=== PATIENT | female | born 1945 | race Caucasian/White ===

== ENCOUNTER 2017-02-22 16:24 | Inpatient (IN) | payer MEDICARE ==
--- NOTE | 2017-02-22 16:52 | ED Physician Chart ---
ED Chief Complaint/HPI - Patient Information Date Seen:: 02/22/17 Time Seen:: 16:35 Chief Complaint:: Schwab Catheter Dysfunction History of Present Illness:: onset x 3 days of urinary incontinence, schwab catheter dysfunction, and ulcer of left foot; no H/As, neck pain, C/P, SOB, cough, Abd. Pain, A/N/V/D/c, fever, chills, or pelvic pain; pt's last tetanus shot: < 5 years; UTD Historian:: Patient, Family Member Review:: Nurse's Note Reviewed ED Review of Systems - Review of Systems General/Constitutional: Fever, No chills, No weight loss, No weakness, No diaphoresis, No edema, No loss of appetite Skin: Skin lesions, Rash, No bruising Head: No headache, No light-headedness Eyes: No loss of vision, No pain, No diplopia ENT: No earache, No nasal drainage, No sore throat, No tinnitus Neck: No neck pain, No swelling, No thyromegaly, No stiffness, No mass noted Cardio Vascular: No chest pain, No palpitations, No PND, No orthopnea, No edema Pulmonary: No SOB, No cough, No sputum, No wheezing GI: No nausea, No vomiting, No diarrhea, No pain, No melena, No hematochezia, No constipation, No hematemesis G/U: No dysuria, No frequency, No hematuria Self Rising Flour Mixer: No vaginal discharge, No abnormal vaginal bleed, No contraction Musculoskeletal: No bone or joint pain, No back pain, No muscle pain Endocrine: Polyuria, Polydipsia Psychiatric: No prior psych history, No depression, No anxiety, No suicidal ideation Hematopoietic: No bruising, No lymphadenopathy Allergic/Immuno: No urticaria, No angioedema Neurological: No syncope, No focal symptoms, No weakness, No paresthesia, No headache, No seizure, No dizziness, No confusion, No vertigo ED Past Medical History - Past Medical History Obtainable: Yes Past Medical History: HTN, DM, CAD, CVA/TIA, Dyslipidemia Family History: Heart disease, Diabetes Melitus, HTN Social History: Non Smoker, No Alcohol, No Drug Use, Single Surgical History: other (Knee and Hip Surgery) Psychiatricy History: None Medication: Reviewed Family Medical History - Family Member Daughter Hx Family Cancer: No Hx Family Coronary Artery Disease: No Hx Family Congestive Heart Failure: No Hx Family Hypertension: No Hx Family Stroke: No Hx Family Diabetes: No Hx Family HIV: No Hx Family Hepatitis: No Hx Family Psychiatric Problems: No ED Physical Exam - Physical Examination General/Constitutional: Awake, Well-developed, well-nourished, Alert, No distress, GCS 15, Non-toxic appearing, Ambulatory Head: Atraumatic Eyes: Lids, conjuctiva normal, PERRL, EOMI Skin: No rash, No ecchymosis, Well hydrated, No lymphadenopathy Other Skin comments:: Left Heel Ulcer ENMT: External ears, nose nl, Nasal exam nl, Lips, teeth, gums nl Neck: Nontender, Full ROM w/o pain, No JVD, No nuchal rigidity, No bruit, No mass, No stridor Respiratory: Nl effort/Exclusion, Clear to Auscultation, No Wheeze/Rhonchi/Rales Cardio Vascular: RRR, No murmur, gallop, rubs, NL S1 S2 GI: No tenderness/rebounding/guarding, No organomegaly, No hernia, Normal BS's, Nondistended, No mass/bruits, No McBurney tenderness : No CVA tenderness Extremities: No tenderness or effusion, Full ROM, normal strength in all extremities, No edema, Normal digits & nails Neuro/Psych: Alert/oriented, DTR's symmetric, Normal sensory exam, Normal motor strength, Judgement/insight normal, Mood normal, Normal gait, No focal deficits Misc: Normal back, No paraspinal tenderness ED Labs/Radiology/EKG Results - Lab Results Comments:: Na+: 134; BUN: 44;Glucose: 255 - EKG Interpretations Rate & Rhythm: NSR Comments:: LVH; non-specific st-t changes ED Septic Shock - . Is Septic Shock (SBP<90, OR Lactate>4 mmol\L) present?: No ED Reassessment (Disposition) - Reassessment Reassessment Condition:: Improved - Diagnosis Diagnosis:: Dx: Hyponatremia; Diabetic Ulcer/Wound; Dehydration; Hyperglycemia; Uncontrolled DM - Aftercare/Follow up Instructions Aftercare/Follow-Up Instructions:: Counseled pt regarding lab results/diagnosis & need follow up, Counseled pt & family regarding lab results/diagnosis & need follow up - Patient Disposition Discharge/Transfer:: Acute Care w/in this hosp Accepting Physician:: Dr. Morillo Time Called:: 1899 Time Responded:: 19:00 Admitted to:: Telemetry Spoke to:: Dr. Morillo Admitting Medical Physician:: Dr. Morillo Condition at Disposition:: Stable, Improved
[2017-02-22] MEDS ORDERED: cefTRIAXone 1 GM in Sodium Chloride 0.9% 50 ML IV ONE (16:56)
[2017-02-22 17:34] LABS: % BASOPHILS 0.8 % (0.0-2.0); % EOSINOPHILS 6.5 % (0.0-5.0); % LYMPHOCYTES 31.5 % (20.0-50.0); % MONOCYTES 5.6 % (2.0-10.0); % NEUTROPHILS 55.6 % (40.0-80.0); HEMATOCRIT 35.5 % (41.0-60); HEMOGLOBIN 11.9 gm/dL (12-16); MEAN CELL VOLUME 88.1 fl (81-100); MEAN CORPUSCULAR HEMOGLOBIN 29.4 pg (27.0-31.0); MEAN CORPUSCULAR HGB CONC 33.4 pg (28.0-36.0); MEAN PLATELET VOLUME 9.1 fl; NEUTROPHILE ABSOLUTE 6.1 Th/cmm (1.8-8.0); PLATELET COUNT 258 Th/cmm (150-400); RED BLOOD COUNT 4.03 Mil/cmm (3.80-5.20); WHITE BLOOD COUNT 10.9 Th/cmm (4.8-10.8)
[2017-02-22 17:49] LABS: INR 0.96 (0.5-1.4)
[2017-02-22 17:53] LABS: ALB/GLOB RATIO 0.9 (1.0-1.8); ALKALINE PHOSPHATASE 207 U/L (34-104); ANION GAP 12.2 (7.0-16.0); BILIRUBIN,TOTAL 0.3 mg/dL (0.3-1.0); BUN - UREA NITROGEN 44 mg/dL (7-25); BUN/CREATININE RATIO 33.8; CALCIUM SERUM 10.1 mg/dL (8.6-10.3); CARBON DIOXIDE 24.8 mEq/L (21.0-31.0); CHLORIDE 101 mEq/L (98-107); CHOLESTEROL 166 mg/dL (<200); CREATININE - SERUM 1.3 mg/dL (0.6-1.2); GLUCOSE 255 mg/dL (70-105); SGOT 24 U/L (13-39); SGPT/ALT 21 U/L (7-52); SODIUM SERUM 134 mEq/L (136-145); TRIGLYCERIDES 319 mg/dL (<150)
[2017-02-22 19:22] LABS: URINE BILIRUBIN NEGATIVE (NEGATIVE); URINE BLOOD MODERATE (NEGATIVE); URINE GLUCOSE (UA) >=1000 mg/dL (NEGATIVE); URINE KETONE NEGATIVE (NEGATIVE); URINE PH 5.5 (4.6 - 8.0); URINE PROTEIN TRACE mg/dL (NEGATIVE); URINE UROBILINOGEN 0.2 E.U./dL (0.2 - 1.0)
[2017-02-22 19:53] LABS: URINE COLOR YELLOW
[2017-02-22 19:57] LABS: URINE BACTERIA MANY /hpf (NONE SEEN); URINE EPITHELIAL CELLS MODERATE /lpf (FEW)
[2017-02-22 19:58] LABS: URINE WBC >100 /hpf (0-5)
[2017-02-22 21:35] VITALS: BP 130/43
[2017-02-22] MEDS: INSULIN ASPART SLIDING SCALE 100 UNITS/ML UNIT SUBQ SCH (22:15)
[2017-02-22] MEDS: Insulin Detemir 100 units/mL 10mL Vial SUBQ SCH (22:15)
[2017-02-22] MEDS: Sodium Chloride 0.9% 1,000 ML IV SCH (23:30)
[2017-02-23 06:10] LABS: % BASOPHILS 0.5 % (0.0-2.0); % LYMPHOCYTES 23.9 % (20.0-50.0); % MONOCYTES 6.9 % (2.0-10.0); % NEUTROPHILS 61.7 % (40.0-80.0); HEMATOCRIT 31.3 % (41.0-60); HEMOGLOBIN 10.6 gm/dL (12-16); MEAN CELL VOLUME 88.8 fl (81-100); MEAN CORPUSCULAR HEMOGLOBIN 30.2 pg (27.0-31.0); MEAN PLATELET VOLUME 9.2 fl; NEUTROPHILE ABSOLUTE 4.9 Th/cmm (1.8-8.0); PLATELET COUNT 217 Th/cmm (150-400); RED BLOOD COUNT 3.53 Mil/cmm (3.80-5.20); RED CELL DISTRIBUTION WIDTH 13.7 % (11.5-20.0)
[2017-02-23 06:12] LABS: WHITE BLOOD COUNT 7.7 Th/cmm (4.8-10.8)
[2017-02-23] MEDS: Sodium Chloride 0.9% 1,000 ML IV SCH ×2 (06:18→16:22)
[2017-02-23 06:22] LABS: ANION GAP 8.3 (7.0-16.0); BUN - UREA NITROGEN 38 mg/dL (7-25); BUN/CREATININE RATIO 31.7; CALCIUM SERUM 9.3 mg/dL (8.6-10.3); CARBON DIOXIDE 28.7 mEq/L (21.0-31.0); CHLORIDE 107 mEq/L (98-107); CHOLESTEROL 134 mg/dL (<200); CREATININE - SERUM 1.2 mg/dL (0.6-1.2); GLUCOSE 179 mg/dL (70-105); SODIUM SERUM 140 mEq/L (136-145); TRIGLYCERIDES 191 mg/dL (<150)
[2017-02-23] MEDS: INSULIN ASPART SLIDING SCALE 100 UNITS/ML UNIT SUBQ SCH ×4 (06:30→22:24)
--- NOTE | 2017-02-23 08:21 | Diagnostic Imaging Report ---
Exam: Portable dictation of chest HISTORY: Chest pain. Findings: Portable examination of the chest at 1710 hours reviewed, no prior studies available comparison. The study demonstrates congestive heart failure changes. Mediastinal structures midline, the aortic arch calcified. The left costophrenic angle blunted probably small effusion. Bony thorax intact. IMPRESSION: Congestive heart failure. Question small left pleural effusion follow-up examination recommended.
[2017-02-23] MEDS ORDERED: FERROUS SULFATE PO SCH (09:00)
[2017-02-23] MEDS ORDERED: DAPAGLIFLOZIN PROPANEDIOL 5 MG PO SCH (09:00)
[2017-02-23] MEDS ORDERED: RESORCINOL TP SCH (09:00)
[2017-02-23] MEDS ORDERED: BENZOCAINE TP SCH (09:00)
[2017-02-23] MEDS ORDERED: Influenza Vaccine 0.5 mL Syr IM ONE (09:00)
--- NOTE | 2017-02-23 09:22 | History and Physical ---
History of Present Illness - HPI Vital Signs: Last Vital Signs Temp 97.8 F 02/23/17 08:20 Pulse 64 02/23/17 08:20 Resp 20 02/23/17 08:20 BP 137/65 02/23/17 08:20 Pulse Ox 98 02/23/17 08:20 Family Medical History - Family Member Daughter History Unknown: Yes Hx Family Cancer: No Hx Family Coronary Artery Disease: No Hx Family Congestive Heart Failure: No Hx Family Hypertension: No Hx Family Stroke: No Hx Family Diabetes: No Hx Family HIV: No Hx Family Hepatitis: No Hx Family Psychiatric Problems: No - Medications Home Medications: Home Medication Medication Instructions Recorded Type Acetaminophen [Tylenol] 325 mg PO Q4HR PRN 02/22/17 History Albuterol Sulfate [Proair Hfa] 8.5 gm IH Q6HR PRN 02/22/17 History Aspirin [Aspirin Chewable] 81 mg PO DAILY 02/22/17 History B Complex with Vitamin C [Super B 1 each PO DAILY 02/22/17 History with Vit C] Benzocaine/Resorcinol [Vagisil 28 gm TP DAILY 02/22/17 History Cream] Citalopram Hydrobromide 40 mg PO HS 02/22/17 History [Citalopram HBr] Clopidogrel [Plavix] 75 mg PO DAILY 02/22/17 History Dapagliflozin Propanediol [Farxiga] 5 mg PO DAILY 02/22/17 History Docusate Sodium [Colace] 100 mg PO DAILY 02/22/17 History Famotidine [Pepcid] 20 mg PO DAILY 02/22/17 History Ferrous Sulfate [Iron] 1 cap PO DAILY 02/22/17 History Furosemide [Lasix] 40 mg PO DAILY 02/22/17 History Insulin Glargine, Recombinan 32 units SUBQ QPM 02/22/17 History [Lantus] Insulin Human Regular [NovoLIN R] 0 units SUBQ ACHS 02/22/17 History Lisinopril [Zestril] 5 mg PO DAILY 02/22/17 History Metoprolol Tartrate [Lopressor] 50 mg PO BID 02/22/17 History Sennosides A and B [Senna] 8.6 mg PO DAILY 02/22/17 History Tiotropium Br/Olodaterol HCl 4 gm IH DAILY 02/22/17 History [Stiolto Respimat Inhal [place]] amLODIPine Besylate [Norvasc] 5 mg PO DAILY 02/22/17 History - Allergies Allergies/Adverse Reactions: Allergies Allergy/AdvReac Type Severity Reaction Status Date / Time No Known Allergies Allergy Verified 02/22/17 16:59 - Lab Results All Lab Results last 24 hours: Laboratory Last Values WBC 7.7 Th/cmm (4.8-10.8) D 02/23/17 05:30 RBC 3.53 Mil/cmm (3.80-5.20) L 02/23/17 05:30 Hgb 10.6 gm/dL (12-16) L 02/23/17 05:30 Hct 31.3 % (41.0-60) L D 02/23/17 05:30 MCV 88.8 fl (81-100) 02/23/17 05:30 MCH 30.2 pg (27.0-31.0) 02/23/17 05:30 MCHC Differential 34.0 pg (28.0-36.0) 02/23/17 05:30 RDW 13.7 % (11.5-20.0) 02/23/17 05:30 Plt Count 217 Th/cmm (150-400) 02/23/17 05:30 MPV 9.2 fl 02/23/17 05:30 Neutrophils % 61.7 % (40.0-80.0) 02/23/17 05:30 Lymphocytes % 23.9 % (20.0-50.0) 02/23/17 05:30 Monocytes % 6.9 % (2.0-10.0) 02/23/17 05:30 Eosinophils % 7.0 % (0.0-5.0) H 02/23/17 05:30 Basophils % 0.5 % (0.0-2.0) 02/23/17 05:30 PT 10.0 SECONDS (9.5-11.5) 02/22/17 17:26 INR 0.96 (0.5-1.4) 02/22/17 17:26 PTT (Actin FS) 25.5 SECONDS (26.0-38.0) L 02/22/17 17:26 Sodium 140 mEq/L (136-145) 02/23/17 05:30 Potassium 4.0 mEq/L (3.5-5.1) 02/23/17 05:30 Chloride 107 mEq/L (98-107) 02/23/17 05:30 Carbon Dioxide 28.7 mEq/L (21.0-31.0) 02/23/17 05:30 Anion Gap 8.3 (7.0-16.0) 02/23/17 05:30 BUN 38 mg/dL (7-25) H 02/23/17 05:30 Creatinine 1.2 mg/dL (0.6-1.2) 02/23/17 05:30 Est GFR ( Amer) TNP 02/23/17 05:30 Est GFR (Non-Af Amer) TNP 02/23/17 05:30 BUN/Creatinine Ratio 31.7 02/23/17 05:30 Glucose 179 mg/dL (70-105) H 02/23/17 05:30 POC Glucose 165 MG/DL (70 - 105) H 02/23/17 06:14 Hemoglobin A1c % 9.1 % (4.0-6.0) H 02/22/17 17:26 Whole Bld Lactic Acid 1.38 mmol/L (0.60-1.99) 02/22/17 19:45 Calcium 9.3 mg/dL (8.6-10.3) 02/23/17 05:30 Total Bilirubin 0.3 mg/dL (0.3-1.0) 02/22/17 17:26 AST 24 U/L (13-39) 02/22/17 17:26 ALT 21 U/L (7-52) 02/22/17 17:26 Alkaline Phosphatase 207 U/L (34-104) H 02/22/17 17:26 Creatine Kinase 70 U/L (30-223) 02/22/17 17:26 Troponin I 0.01 ng/mL (0.01-0.05) 02/22/17 17:26 B-Natriuretic Peptide 72.9 pg/mL (5.0-100.0) 02/23/17 05:30 Total Protein 8.4 gm/dL (6.0-8.3) H 02/22/17 17:26 Albumin 4.0 gm/dL (3.7-5.3) 02/22/17 17:26 Globulin 4.4 gm/dL 02/22/17 17:26 Albumin/Globulin Ratio 0.9 (1.0-1.8) L 02/22/17 17:26 Triglycerides 191 mg/dL (<150) H 02/23/17 05:30 Cholesterol 134 mg/dL (<200) 02/23/17 05:30 LDL Cholesterol Direct 68 mg/dL (75-193) L 02/23/17 05:30 HDL Cholesterol 36 mg/dL (23-92) 02/23/17 05:30 TSH 1.77 uIU/ml (0.34-5.60) 02/23/17 05:30 Urine Source CLEAN C 02/22/17 18:50 Urine Color YELLOW 02/22/17 18:50 Urine Clarity CLOUDY (CLEAR) H 02/22/17 18:50 Urine pH 5.5 (4.6 - 8.0) 02/22/17 18:50 Ur Specific [place] 1.015 (1.005-1.030) 02/22/17 18:50 Urine Protein TRACE mg/dL (NEGATIVE) 02/22/17 18:50 Urine Glucose (UA) >=1000 mg/dL (NEGATIVE) H 02/22/17 18:50 Urine Ketones NEGATIVE mg/dL (NEGATIVE) 02/22/17 18:50 Urine Blood MODERATE (NEGATIVE) H 02/22/17 18:50 Urine Nitrate POSITIVE (NEGATIVE) H 02/22/17 18:50 Urine Bilirubin NEGATIVE (NEGATIVE) 02/22/17 18:50 Urine Urobilinogen 0.2 E.U./dL (0.2 - 1.0) 02/22/17 18:50 Ur Leukocyte Esterase MODERATE (NEGATIVE) H 02/22/17 18:50 Urine RBC 10-25 /hpf (0-5) H 02/22/17 18:50 Urine WBC >100 /hpf (0-5) H 02/22/17 18:50 Ur Epithelial Cells MODERATE /lpf (FEW) 02/22/17 18:50 Urine Bacteria MANY /hpf (NONE SEEN) 02/22/17 18:50 Laboratory Results - last 24 hr 02/22/17 02/23/17 02/23/17 22:14 05:30 05:30 WBC 7.7 D RBC 3.53 L Hgb 10.6 L Hct 31.3 L D MCV 88.8 MCH 30.2 MCHC Differential 34.0 RDW 13.7 Plt Count 217 MPV 9.2 Neutrophils % 61.7 Lymphocytes % 23.9 Monocytes % 6.9 Eosinophils % 7.0 H Basophils % 0.5 Sodium 140 Potassium 4.0 Chloride 107 Carbon Dioxide 28.7 Anion Gap 8.3 BUN 38 H Creatinine 1.2 Est GFR ( Amer) TNP Est GFR (Non-Af Amer) TNP BUN/Creatinine Ratio 31.7 Glucose 179 H POC Glucose 254 H Calcium 9.3 B-Natriuretic Peptide Triglycerides 191 H Cholesterol 134 LDL Cholesterol Direct 68 L HDL Cholesterol 36 TSH 02/23/17 02/23/17 02/23/17 05:30 05:30 06:14 WBC RBC Hgb Hct MCV MCH MCHC Differential RDW Plt Count MPV Neutrophils % Lymphocytes % Monocytes % Eosinophils % Basophils % Sodium Potassium Chloride Carbon Dioxide Anion Gap BUN Creatinine Est GFR ( Amer) Est GFR (Non-Af Amer) BUN/Creatinine Ratio Glucose POC Glucose 165 H Calcium B-Natriuretic Peptide 72.9 Triglycerides Cholesterol LDL Cholesterol Direct HDL Cholesterol TSH 1.77
[2017-02-23] MEDS: Ascorbic Acid/Vit B Complex Tab PO SCH (09:38)
[2017-02-23] MEDS: Aspirin 81mg Chewable Tab PO SCH (09:40)
[2017-02-23] MEDS: Ferrous Sulfate 325 MG TAB PO SCH (09:40)
[2017-02-23] MEDS ORDERED: Probiotic Screen MC PRN (10:00)
--- NOTE | 2017-02-23 12:49 | Consultation ---
Consult Note - Consult Note Service Date: 02/23/17 Referring Physician: Michelle Morillo Consult Note: PHYSICIAN Consultation Note: Date of Admission: 02/22/17 Purpose of Consultation: Chief Complaint: Patient [place] BRADSHAW was admitted to location Medical/Surgical Unit I with DIABETIC ULCER/WOUND/DEHYDRATION,DM UNCONTROLLED. History of Present Illness: 72 year female with a past medical history of diabetes mellitus type 2,HTN, CAD , CVA/TIA, Dyslipidemia had developed left heel wound few months ago. She also got skin graft. However she developed the left hip wound again for last 2 months which was not healing. She also developed pain. Besides this, her glucose was elevated so she was sent to the ER for further evaluation and management. She also complained of urinary incontinence. On initial evaluation , her temperature was 98.4F and WBC count was 10,900. Rocephin was started and ID consult was called for further antibiotic management. Past Medical History: HTN, DM, CAD, CVA/TIA, Dyslipidemia Allergies Allergy/AdvReac Type Severity Reaction Status Date / Time No Known Allergies Allergy Verified 02/22/17 16:59 Vital Signs Temp 97.8 F 02/23/17 08:20 Pulse 64 02/23/17 09:40 Resp 20 02/23/17 08:20 BP 137/65 02/23/17 09:40 Pulse Ox 98 02/23/17 08:20 Intake & Output 02/22/17 02/23/17 02/23/17 18:59 06:59 18:59 Intake Total 910 Balance 910 Weight (lbs) 102.087 kg Intake: Intake, IV Amount 850 Sodium Chloride 0.9% 1, 850 000 ml @ 125 mls/hr IV . Q8H [facility] Rx#:[id number] Oral 60 Other: # Voids 4 Laboratory Results - last 24 hr 02/22/17 02/23/17 02/23/17 22:14 05:30 05:30 WBC 7.7 D RBC 3.53 L Hgb 10.6 L Hct 31.3 L D MCV 88.8 MCH 30.2 MCHC Differential 34.0 RDW 13.7 Plt Count 217 MPV 9.2 Neutrophils % 61.7 Lymphocytes % 23.9 Monocytes % 6.9 Eosinophils % 7.0 H Basophils % 0.5 Sodium 140 Potassium 4.0 Chloride 107 Carbon Dioxide 28.7 Anion Gap 8.3 BUN 38 H Creatinine 1.2 Est GFR ( Amer) TNP Est GFR (Non-Af Amer) TNP BUN/Creatinine Ratio 31.7 Glucose 179 H POC Glucose 254 H Calcium 9.3 B-Natriuretic Peptide Triglycerides 191 H Cholesterol 134 LDL Cholesterol Direct 68 L HDL Cholesterol 36 TSH 02/23/17 02/23/17 02/23/17 05:30 05:30 06:14 WBC RBC Hgb Hct MCV MCH MCHC Differential RDW Plt Count MPV Neutrophils % Lymphocytes % Monocytes % Eosinophils % Basophils % Sodium Potassium Chloride Carbon Dioxide Anion Gap BUN Creatinine Est GFR ( Amer) Est GFR (Non-Af Amer) BUN/Creatinine Ratio Glucose POC Glucose 165 H Calcium B-Natriuretic Peptide 72.9 Triglycerides Cholesterol LDL Cholesterol Direct HDL Cholesterol TSH 1.77 02/23/17 11:35 WBC RBC Hgb Hct MCV MCH MCHC Differential RDW Plt Count MPV Neutrophils % Lymphocytes % Monocytes % Eosinophils % Basophils % Sodium Potassium Chloride Carbon Dioxide Anion Gap BUN Creatinine Est GFR ( Amer) Est GFR (Non-Af Amer) BUN/Creatinine Ratio Glucose POC Glucose 268 H Calcium B-Natriuretic Peptide Triglycerides Cholesterol LDL Cholesterol Direct HDL Cholesterol TSH Home Medication Medication Instructions Recorded Type Acetaminophen [Tylenol] 325 mg PO Q4HR PRN 02/22/17 History Albuterol Sulfate [Proair Hfa] 8.5 gm IH Q6HR PRN 02/22/17 History Aspirin [Aspirin Chewable] 81 mg PO DAILY 02/22/17 History B Complex with Vitamin C [Super B 1 each PO DAILY 02/22/17 History with Vit C] Benzocaine/Resorcinol [Vagisil 28 gm TP DAILY 02/22/17 History Cream] Citalopram Hydrobromide 40 mg PO HS 02/22/17 History [Citalopram HBr] Clopidogrel [Plavix] 75 mg PO DAILY 02/22/17 History Dapagliflozin Propanediol [Farxiga] 5 mg PO DAILY 02/22/17 History Docusate Sodium [Colace] 100 mg PO DAILY 02/22/17 History Famotidine [Pepcid] 20 mg PO DAILY 02/22/17 History Ferrous Sulfate [Iron] 1 cap PO DAILY 02/22/17 History Furosemide [Lasix] 40 mg PO DAILY 02/22/17 History Insulin Glargine, Recombinan 32 units SUBQ QPM 02/22/17 History [Lantus] Insulin Human Regular [NovoLIN R] 0 units SUBQ ACHS 02/22/17 History Lisinopril [Zestril] 5 mg PO DAILY 02/22/17 History Metoprolol Tartrate [Lopressor] 50 mg PO BID 02/22/17 History Sennosides A and B [Senna] 8.6 mg PO DAILY 02/22/17 History Tiotropium Br/Olodaterol HCl 4 gm IH DAILY 02/22/17 History [Stiolto Respimat Inhal [place]] amLODIPine Besylate [Norvasc] 5 mg PO DAILY 02/22/17 History Current Medications Generic Name Dose Route Start Last Admin Trade Name Freq PRN Reason Stop Dose Admin Acetaminophen 325 mg 02/22/17 20:53 02/23/17 09:51 Tylenol PO 04/23/17 20:52 325 mg Q4HR PRN Administration Pain (Mild) Amlodipine Besylate 5 mg 02/23/17 09:00 02/23/17 09:40 Norvasc PO 04/24/17 08:59 5 mg DAILY VEE Administration Aspirin 81 mg 02/23/17 09:00 02/23/17 09:40 Aspirin Chewable PO 04/24/17 08:59 81 mg DAILY VEE Administration Citalopram Hydrobromide 40 mg 02/22/17 21:00 Celexa PO 04/23/17 20:59 HS VEE Clopidogrel Bisulfate 75 mg 02/23/17 09:00 02/23/17 09:39 Plavix PO 04/24/17 08:59 75 mg DAILY VEE Administration Docusate Sodium 100 mg 02/23/17 09:00 02/23/17 09:40 Colace PO 04/24/17 08:59 100 mg DAILY VEE Administration Famotidine 20 mg 02/23/17 09:00 02/23/17 09:40 Pepcid PO 04/24/17 08:59 20 mg DAILY VEE Administration Ferrous Sulfate 325 mg 02/23/17 09:00 02/23/17 09:40 Iron PO 04/24/17 08:59 325 mg DAILY VEE Administration Furosemide 40 mg 02/23/17 09:00 02/23/17 09:39 Lasix PO 04/24/17 08:59 40 mg DAILY VEE Administration Sodium Chloride 1,000 mls @ 125 mls/hr 02/22/17 23:15 02/23/17 06:18 Nacl 0.9% IV 04/23/17 23:14 125 mls/hr .Q8H VEE Administration Ceftriaxone Sodium 1 gm/ 50 mls @ 100 mls/hr 02/23/17 18:00 Sodium Chloride IV 04/24/17 17:59 Q24HR VEE Insulin Aspart 0 units 02/22/17 21:00 02/23/17 12:38 Novolog Insulin Sliding Scale SUBQ 04/23/17 20:59 6 units ACHS VEE Administration Protocol Insulin Detemir 32 units 02/22/17 21:30 02/22/17 22:15 Levemir Insulin SUBQ 04/23/17 21:29 32 units QPM VEE Administration Lactobacillus Rhamnosus 1 each 02/24/17 09:00 Culturelle PO 04/25/17 08:59 DAILY VEE Lisinopril 5 mg 02/23/17 09:00 02/23/17 09:39 Zestril PO 04/24/17 08:59 5 mg DAILY VEE Administration Miscellaneous 8.5 gm 02/22/17 20:53 Albuterol Sulfate [Proair Hfa] IH Q6HR PRN shortness of breath Miscellaneous 28 gm 02/23/17 09:00 Benzocaine/Resorcinol [Vagisil Cream] TP 04/24/17 08:59 DAILY VEE Miscellaneous 5 mg 02/23/17 09:00 Dapagliflozin Propanediol [Farxiga] PO 04/24/17 08:59 DAILY VEE Miscellaneous 1 ea 02/23/17 10:00 Probiotic Screen MC 04/24/17 09:59 PRN PRN PROTOCOL Senna 8.6 mg 02/23/17 09:00 02/23/17 09:40 Senna PO 04/24/17 08:59 8.6 mg DAILY VEE Administration Vitamin B Complex/Vitamin C 1 tab 02/23/17 09:00 02/23/17 09:38 Vitamin B Complex W/C PO 04/24/17 08:59 1 tab DAILY VEE Administration Review of Systems: A 12 point ROS was reviewed with the pertinent positive and negatives noted in the HPI. Social History Smoking Status Never smoker Drug Use No Alcohol Use No Family Medical History Family Medical History Start: 02/22/17 20: 56 Freq: ONCE Status: Active Document 02/22/17 20:56 NELSON (Rec: 02/22/17 21:48 NELSON [id number]) Family Medical History Daughter History Unknown Yes Physical Exam: General: Comfortable, not in acute distress. HEENT: Head: Normocytic, atraumatic. Face: Symmetric. Oral cavity: Moist, pink tongue. Eyes: No pallor. No icterus. Pupils PERRLA. EOMI. Neck: Supple, no JVD, no use of accessory his neck muscles. No thyromegaly. Cardio: S1 and S2 within normal limits. No murmur no gallop. Respiratory: Vesicular breath sound. Abdominal: Soft, nontender nondistended bowel sounds present. Genital/Urinary: Deferred. Extremities: No cyanosis, no clubbing, no edema. Pulses are palpable in all 4 limbs. Left heel has open wound with surrounding erythema. From the center there is some yellow pus coming out. Neurological: Alert, awake, oriented 3. Assessment: 1. Nonhealing, complicated wound on left heel. Rule out chronic ostiomyelitis. 2. Diabetes mellitus type 2. Uncontrolled. 3. UTI. 4. Hypertension. Plan: Wound care, antibiotic Rocephin. Arterial ultrasound of left lower extremity. Three-phase bone scan of left lower extremity. ESR CRP. Thank you, Dr. Morillo for involving me in taking care of this patient. Signed, Berto Tejada M.D. [id number]
[2017-02-23] MEDS: Insulin Detemir 100 units/mL 10mL Vial SUBQ SCH (18:17)
[2017-02-23] MEDS: cefTRIAXone 1 GM in Sodium Chloride 0.9% 50 ML IV SCH (18:18)
[2017-02-23] MEDS ORDERED: Albuterol Nebulizer 2.5mg/3mL HHN PRN (19:00)
--- NOTE | 2017-02-23 20:26 | Consultation ---
DATE OF CONSULTATION: 02/23/[address] Morillo. HISTORY AND PHYSICAL: This is a 72-year-old female patient who recently came from [place], has been complaining of pain in the left heel. The patient has diabetic nonhealing ulcer. The patient also has severe bradycardia and hence Cardiology consult is requested. PAST MEDICAL HISTORY: Diabetes mellitus type 2, insulin-dependent diabetes mellitus, left heel ulcer, hypertension, obesity, and iron deficiency anemia. FAMILY HISTORY: Unremarkable. SOCIAL HISTORY: No history of smoking, alcohol abuse. ALLERGIES: No known allergies. PHYSICAL EXAMINATION: VITAL SIGNS: Blood pressure 130/80, pulse 48, and respirations 28. HEAD: Normocephalic. No lumps or bumps. EYES: Pupils are equal and reactive to light. Fundi show AV nicking, sclerae white, and conjunctivae pink. NECK: Carotid 2+. Normal upstroke. JVD flat. Thyroid not palpable. Lymph nodes not palpable. CHEST: Shows increased AP diameter. No kyphosis or scoliosis. LUNGS: Bilateral bronchovesicular breath sounds. HEART: PMI fifth intercostal space with lateral to midclavicular line. S1, S2. No S3, S4, soft systolic murmur. ABDOMEN: Soft. Liver and spleen not palpable. No organomegaly. Bowel sounds active. NEUROLOGIC: Unremarkable. EXTREMITIES: Peripheral pulses 2+. No pedal edema. The patient has a left heel ulcer, nonhealing. CLINICAL IMPRESSION: Diabetic ulcer, left heel, nonhealing; hypertension; diabetes, insulin-dependent; obesity; iron deficiency anemia; and severe bradycardia. PLAN: Admit the patient. We will stop metoprolol causing severe bradycardia. Continue diabetes and do wound care. Also get echocardiogram. JOB# [id number]
--- NOTE | 2017-02-23 22:12 | History & Physical ---
ADMIT DATE: 02/22/2017 The patient was admitted to Med/Surg from the ER because of the diabetic foot ulcer and dehydration and history of diabetes, uncontrolled. HISTORY OF PRESENT ILLNESS: The patient is a 72-year-old female with past medical history of diabetes, history of hypertension, history of coronary artery disease, history of CVA, history of TIA, history of hyperlipidemia, developed a left heel wound several months ago. Now, it is getting worse. The patient also had a skin graft in the past and the patient developed pain, came to the ER and was admitted. The patient complained of urinary incontinence as well. The patient had lab work done which showed white count was slightly elevated and the patient was given Rocephin and the patient was admitted. PAST MEDICAL HISTORY: As enumerated above. SURGICAL HISTORY: As enumerated above. Again, history of hypertension, diabetes, coronary artery disease, history of TIA and CVA, and history of hyperlipidemia. PHYSICAL EXAMINATION: HEAD: Normal. ENT: Normal. NECK: Supple, nontender. LUNGS: Clear. CARDIOVASCULAR SYSTEM: S1, S2 heard. ABDOMEN: Soft. Bowel sounds are heard. CENTRAL NERVOUS SYSTEM: Grossly normal. DIAGNOSES: 1. Nonhealing complicated left heel ulcer, rule out osteomyelitis, history of diabetes type 2, uncontrolled, history of hypertension, and history of urinary tract infection. PLAN: The patient received Rocephin and I will follow the patient. I called the ID doctor as well as Dr. Philipp Tejada for bradycardia and I will follow the patient. JOB# [id number]
[2017-02-24] MEDS: Sodium Chloride 0.9% 1,000 ML IV SCH ×2 (01:22→14:40)
[2017-02-24 05:26] LABS: % BASOPHILS 0.7 % (0.0-2.0); % EOSINOPHILS 9.3 % (0.0-5.0); HEMATOCRIT 29.4 % (41.0-60); HEMOGLOBIN 9.8 gm/dL (12-16); MEAN CELL VOLUME 88.3 fl (81-100); MEAN CORPUSCULAR HEMOGLOBIN 29.5 pg (27.0-31.0); MEAN CORPUSCULAR HGB CONC 33.4 pg (28.0-36.0); MEAN PLATELET VOLUME 8.4 fl; NEUTROPHILE ABSOLUTE 3.5 Th/cmm (1.8-8.0); PLATELET COUNT 232 Th/cmm (150-400); RED BLOOD COUNT 3.34 Mil/cmm (3.80-5.20); RED CELL DISTRIBUTION WIDTH 13.8 % (11.5-20.0); WHITE BLOOD COUNT 6.3 Th/cmm (4.8-10.8)
[2017-02-24 05:55] LABS: ANION GAP 9.3 (7.0-16.0); BUN - UREA NITROGEN 26 mg/dL (7-25); CALCIUM SERUM 8.8 mg/dL (8.6-10.3); CARBON DIOXIDE 27.5 mEq/L (21.0-31.0); CHLORIDE 108 mEq/L (98-107); GLUCOSE 189 mg/dL (70-105); POTASSIUM SERUM 3.8 mEq/L (3.5-5.1); SODIUM SERUM 141 mEq/L (136-145)
[2017-02-24] MEDS: INSULIN ASPART SLIDING SCALE 100 UNITS/ML UNIT SUBQ SCH ×4 (06:31→20:44)
--- NOTE | 2017-02-24 07:43 | Diagnostic Imaging Report ---
Left lower extremity Doppler arterial ultrasound exam HISTORY: Peripheral vascular disease, pain Exam is technically limited. The exam demonstrates triphasic waveforms noted in the common femoral artery. Increased velocity noted through this region. Abnormal monophasic waveforms are noted within the proximal and midportion of the left superficial femoral artery along with a marked decrease in velocity. Moderate to severe atherosclerotic plaque noted through this vessel. The distal portion of the superficial femoral artery is not clearly visualized. Abnormal monophasic waveforms along with decreased velocities seen through the popliteal, anterior tibial, posterior tibial, and dorsalis pedis arteries. Again, detail is limited. However moderate to severe diffuse atherosclerotic changes are suggested. Evaluation of the ankle brachial index could not be a chiefed. IMPRESSION: 1. Limited exam 2. Evidence of moderate to severe diffuse atherosclerotic changes. If necessary, a CT angiographic study would provide additional detail and assessment.
[2017-02-24] MEDS: Ferrous Sulfate 325 MG TAB PO SCH (09:20)
[2017-02-24] MEDS: Ascorbic Acid/Vit B Complex Tab PO SCH (09:20)
[2017-02-24] MEDS: Lactobacillus Rhamnosus 10 Billion CFU Capsule PO SCH (09:20)
[2017-02-24] MEDS: Aspirin 81mg Chewable Tab PO SCH (09:21)
--- NOTE | 2017-02-24 10:12 | General Progress Note ---
Subjective - Review of Systems Events since last encounter: patient with no acute distress, awake Objective - Results Result Diagrams: 02/24/17 04:47 02/24/17 04:47 Recent Labs: Laboratory Last Values WBC 6.3 Th/cmm (4.8-10.8) 02/24/17 04:47 RBC 3.34 Mil/cmm (3.80-5.20) L 02/24/17 04:47 Hgb 9.8 gm/dL (12-16) L 02/24/17 04:47 Hct 29.4 % (41.0-60) L 02/24/17 04:47 MCV 88.3 fl (81-100) 02/24/17 04:47 MCH 29.5 pg (27.0-31.0) 02/24/17 04:47 MCHC Differential 33.4 pg (28.0-36.0) 02/24/17 04:47 RDW 13.8 % (11.5-20.0) 02/24/17 04:47 Plt Count 232 Th/cmm (150-400) 02/24/17 04:47 MPV 8.4 fl 02/24/17 04:47 Neutrophils % 55.0 % (40.0-80.0) 02/24/17 04:47 Lymphocytes % 27.0 % (20.0-50.0) 02/24/17 04:47 Monocytes % 8.0 % (2.0-10.0) 02/24/17 04:47 Eosinophils % 9.3 % (0.0-5.0) H 02/24/17 04:47 Basophils % 0.7 % (0.0-2.0) 02/24/17 04:47 ESR 115 mm/hr (0-30) H 02/24/17 04:47 PT 10.0 SECONDS (9.5-11.5) 02/22/17 17:26 INR 0.96 (0.5-1.4) 02/22/17 17:26 PTT (Actin FS) 25.5 SECONDS (26.0-38.0) L 02/22/17 17:26 Sodium 141 mEq/L (136-145) 02/24/17 04:47 Potassium 3.8 mEq/L (3.5-5.1) 02/24/17 04:47 Chloride 108 mEq/L (98-107) H 02/24/17 04:47 Carbon Dioxide 27.5 mEq/L (21.0-31.0) 02/24/17 04:47 Anion Gap 9.3 (7.0-16.0) 02/24/17 04:47 BUN 26 mg/dL (7-25) H 02/24/17 04:47 Creatinine 1.0 mg/dL (0.6-1.2) 02/24/17 04:47 Est GFR ( Amer) TNP 02/24/17 04:47 Est GFR (Non-Af Amer) TNP 02/24/17 04:47 BUN/Creatinine Ratio 26.0 02/24/17 04:47 Glucose 189 mg/dL (70-105) H 02/24/17 04:47 POC Glucose 183 MG/DL (70 - 105) H 02/24/17 06:27 Hemoglobin A1c % 9.1 % (4.0-6.0) H 02/22/17 17:26 Whole Bld Lactic Acid 1.38 mmol/L (0.60-1.99) 02/22/17 19:45 Calcium 8.8 mg/dL (8.6-10.3) 02/24/17 04:47 Total Bilirubin 0.3 mg/dL (0.3-1.0) 02/22/17 17:26 AST 24 U/L (13-39) 02/22/17 17:26 ALT 21 U/L (7-52) 02/22/17 17:26 Alkaline Phosphatase 207 U/L (34-104) H 02/22/17 17:26 Creatine Kinase 70 U/L (30-223) 02/22/17 17:26 Troponin I 0.01 ng/mL (0.01-0.05) 02/22/17 17:26 C-Reactive Protein 1.3 mg/dL (0.0-0.9) H 02/24/17 04:47 B-Natriuretic Peptide 72.9 pg/mL (5.0-100.0) 02/23/17 05:30 Total Protein 8.4 gm/dL (6.0-8.3) H 02/22/17 17:26 Albumin 4.0 gm/dL (3.7-5.3) 02/22/17 17:26 Globulin 4.4 gm/dL 02/22/17 17:26 Albumin/Globulin Ratio 0.9 (1.0-1.8) L 02/22/17 17:26 Triglycerides 191 mg/dL (<150) H 02/23/17 05:30 Cholesterol 134 mg/dL (<200) 02/23/17 05:30 LDL Cholesterol Direct 68 mg/dL (75-193) L 02/23/17 05:30 HDL Cholesterol 36 mg/dL (23-92) 02/23/17 05:30 TSH 1.77 uIU/ml (0.34-5.60) 02/23/17 05:30 Urine Source CLEAN C 02/22/17 18:50 Urine Color YELLOW 02/22/17 18:50 Urine Clarity CLOUDY (CLEAR) H 02/22/17 18:50 Urine pH 5.5 (4.6 - 8.0) 02/22/17 18:50 Ur Specific [place] 1.015 (1.005-1.030) 02/22/17 18:50 Urine Protein TRACE mg/dL (NEGATIVE) 02/22/17 18:50 Urine Glucose (UA) >=1000 mg/dL (NEGATIVE) H 02/22/17 18:50 Urine Ketones NEGATIVE mg/dL (NEGATIVE) 02/22/17 18:50 Urine Blood MODERATE (NEGATIVE) H 02/22/17 18:50 Urine Nitrate POSITIVE (NEGATIVE) H 02/22/17 18:50 Urine Bilirubin NEGATIVE (NEGATIVE) 02/22/17 18:50 Urine Urobilinogen 0.2 E.U./dL (0.2 - 1.0) 02/22/17 18:50 Ur Leukocyte Esterase MODERATE (NEGATIVE) H 02/22/17 18:50 Urine RBC 10-25 /hpf (0-5) H 02/22/17 18:50 Urine WBC >100 /hpf (0-5) H 02/22/17 18:50 Ur Epithelial Cells MODERATE /lpf (FEW) 02/22/17 18:50 Urine Bacteria MANY /hpf (NONE SEEN) 02/22/17 18:50 - Physical Exam Vitals and I&O: Vital Signs Temp 98.1 F 02/24/17 08:00 Pulse 68 02/24/17 09:21 Resp 16 02/24/17 08:00 BP 139/68 02/24/17 09:22 Pulse Ox 95 02/24/17 08:00 Intake & Output 02/23/17 02/24/17 02/24/17 18:59 06:59 18:59 Intake Total 1000 1000 Balance 1000 1000 Intake: Intake, IV Amount 1000 1000 Sodium Chloride 0.9% 1, 1000 1000 000 ml @ 125 mls/hr IV . Q8H [facility] Rx#:[id number] Active Medications: Current Medications Acetaminophen (Tylenol) 325 mg PO Q4HR PRN PRN Reason: Pain (Mild) Stop: 04/23/17 20:52 Last Admin: 02/23/17 22:25 Dose: 325 mg Albuterol Sulfate (Albuterol 2.5mg/3ml Neb Ud) 2.5 mg HHN Q6HRT PRN PRN Reason: shortness of breath Stop: 04/24/17 18:59 Amlodipine Besylate (Norvasc) 5 mg PO DAILY [facility] Stop: 04/24/17 08:59 Last Admin: 02/24/17 09:21 Dose: 5 mg Aspirin (Aspirin Chewable) 81 mg PO DAILY [facility] Stop: 04/24/17 08:59 Last Admin: 02/24/17 09:21 Dose: 81 mg Citalopram Hydrobromide (Celexa) 40 mg PO HS [facility] Stop: 04/23/17 20:59 Last Admin: 02/23/17 22:23 Dose: 40 mg Clopidogrel Bisulfate (Plavix) 75 mg PO DAILY [facility] Stop: 04/24/17 08:59 Last Admin: 02/24/17 09:22 Dose: 75 mg Docusate Sodium (Colace) 100 mg PO DAILY [facility] Stop: 04/24/17 08:59 Last Admin: 02/24/17 09:21 Dose: 100 mg Famotidine (Pepcid) 20 mg PO DAILY [facility] Stop: 04/24/17 08:59 Last Admin: 02/24/17 09:21 Dose: 20 mg Ferrous Sulfate (Iron) 325 mg PO DAILY [facility] Stop: 04/24/17 08:59 Last Admin: 02/24/17 09:20 Dose: 325 mg Furosemide (Lasix) 40 mg PO DAILY [facility] Stop: 04/24/17 08:59 Last Admin: 02/24/17 09:22 Dose: 40 mg Sodium Chloride (Nacl 0.9%) 1,000 mls @ 125 mls/hr IV .Q8H [facility] Stop: 04/23/17 23:14 Last Admin: 02/24/17 01:22 Dose: 125 mls/hr Ceftriaxone Sodium 1 gm/ (Sodium Chloride) 50 mls @ 100 mls/hr IV Q24HR [facility] Stop: 04/24/17 17:59 Last Admin: 02/23/17 18:18 Dose: 100 mls/hr Insulin Aspart (Novolog Insulin Sliding Scale) 0 units SUBQ ACHS [facility]EE PRN Reason: Protocol Stop: 04/23/17 20:59 Last Admin: 02/24/17 06:31 Dose: Not Given Insulin Detemir (Levemir Insulin) 32 units SUBQ QPM [facility] Stop: 04/23/17 21:29 Last Admin: 02/23/17 18:17 Dose: 32 units Lactobacillus Rhamnosus (Culturelle) 1 each PO DAILY [facility] Stop: 04/25/17 08:59 Last Admin: 02/24/17 09:20 Dose: 1 each Lisinopril (Zestril) 5 mg PO DAILY [facility] Stop: 04/24/17 08:59 Last Admin: 02/24/17 09:21 Dose: 5 mg Miscellaneous (Benzocaine/Resorcinol [Vagisil Cream]) 28 gm TP DAILY [facility] Stop: 04/24/17 08:59 Miscellaneous (Dapagliflozin Propanediol [Farxiga]) 5 mg PO DAILY [facility] Stop: 04/24/17 08:59 Miscellaneous (Probiotic Screen) 1 [facility] PRN PRN PRN Reason: PROTOCOL Stop: 04/24/17 09:59 Senna (Senna) 8.6 mg PO DAILY [facility] Stop: 04/24/17 08:59 Last Admin: 02/24/17 09:20 Dose: 8.6 mg Vitamin B Complex/Vitamin C (Vitamin B Complex W/C) 1 tab PO DAILY [facility] Stop: 04/24/17 08:59 Last Admin: 02/24/17 09:20 Dose: 1 tab General: No acute distress HEENT: Atraumatic, PERRLA Neck: Thyromegaly Cardiovascular: Regular rate, Normal S1 Assessment/Plan - Problem List Patient Problems: All Active Problems H/O recurrent urinary tract infection (Acute) Z87.440 H/O type 2 diabetes mellitus (Acute) Z86.39 H/O: HTN (hypertension) (Acute) Z86.79 Nonhealing ulcer of heel (Acute) L97.409 r/o osteomyelitis (Acute) - Plan Plan: cpm Nutritional Asmnt/Malnutr-PDOC - Dietary Evaluation Malnutrition Findings (Please click <Entered> for more info): Nutritional Asmnt/Malnutrition Start: 02/23/17 11: 00 Text: Status: Complete Freq: Document 02/23/17 14:16 MPENAFULEAH (Rec: 02/23/17 14:25 MPENAFUERT JON -FNS4) Nutritional Asmnt/Malnutrition Patient General Information Nutritional Screening Consult Diagnosis Diabetic ulcer/wound/ dehydration/DM uncontrolled Pertinent Medical Hx/Surgical Hx PMH: HTN, DM, CAD, CVA, TIA, dyslipidemia per MD notes Subjective Information Pt seen for Nutrition Consult (blood glucose level of 255). Pt seen resting in bed while eating lunch w/ son at bedside . Pt appeared over-nourished for ht, c/w anthropometrics and verified by pt. Per son, pt recently moved from a [facility], where she did not follow any diet restrictions. Pt reported "okay" appetite, and denied any difficulty chewing/swallowing. RN reported that pt has been eating 50-60% on average. RD encouraged pt to try to increase PO intakes for adequate nutrition for wound healing. Pt may benefit from Boost Glucose Control oral supplement. Pt was interested in strawberry-flavored oral supplement. RD to notify [facility] staff. RD communicated w/ RN regarding RD rec for Boost Glucose Control BID; RN paged attending MD; awaiting orders. Pt is not yet meeting optimal nutritional needs. Pt declined nutrition education. Current Diet Order/ Nutrition Support [facility] Patient / S.O Can Pertinent Medications colace, pepcid, iron, lasix, insulin aspart, levemir, culturelle, senna, VIT B complex w/ VIT C Pertinent Labs BG 179 H, POC BG 165 H, BUN 38 H, Triglycerides 191 H, H/H 10/6 L/31/3 L, LDL 68 L Nutritional Hx/Data Height 1.57 m Height (Calculated Centimeters) 157.5 Current Weight (lbs) 102.058 kg Weight (Calculated Kilograms) 102.1 Weight (Calculated Grams) 784716.3 Usual body Weight (lbs) 223 % Usual Body Weight 101 [place] Body Weight 110 lb, 50 kg. Adj IBW ( obesity): 139 lb, 63 kg % [place] Body Weight 204 Recent Weight Change No Weight Status Obese GI Symptoms GI Symptoms None Food Allergies No Usual diet at home Regular Skin Integrity/Comment: [place]: 13; diabetic ulcer L heel noted; redness to back/ perineal per RN Current %PO Fair (50-74%) Estimated Nutritional Goals BEE in Kcals: Adj wt of IBW Calories/Kcals/Kg 30-35 kcal/kg Adj IBW (wound healing) Kcals Calculated 4443-1915 kcal/day Protein: Adj wt of IBW Protein g/k.2-1.5 gm/kg Adj IBW (wound healing) Protein Calculated 76-95 gm/day Fluid: ml 3 L/day (30 ml/kg CBW for wound healing, dehydration) Nutritional Problem 1. Problem Problem Increased nutritional needs Etiology related to metabolic demands Signs/Symptoms: as evidenced by estimated nutritional requirements for wound healing. Malnutrition Related to Morbid Obesity Malnutrition related to morbid obesity Weight 200% of ideal wt Query Text:(Any 1 Criteria met) Malnutrition related to morbid obesity Yes Intervention/Recommendation Recommendations by RD Increase Calorie Intake Protein supplementation Comments * Recommend CCHO diet, Boost Glucose Control BID (oral supplement provides an additional 500 kcal/day and 28 gm protein/day) Expected Outcomes/Goals Expected Outcomes/Goals - Monitor appetite and PO intakes w/ goal of pt meeting at least 75% of estimated nutritional needs, labs trending WNL, normal GI function, and skin integrity/ wt maintenance within 3-5 days
--- NOTE | 2017-02-24 13:35 | Internal Medicine Prog Note ---
Internal Medicine Subjective - Subjective Service Date: 02/24/17 Patient seen and examined:: with staff Patient is:: awake Per staff patient has:: tolerating meds Internal Medicine Objective - Results Result Diagrams: 02/24/17 04:47 02/24/17 04:47 Recent Labs: Laboratory Last Values WBC 6.3 Th/cmm (4.8-10.8) 02/24/17 04:47 RBC 3.34 Mil/cmm (3.80-5.20) L 02/24/17 04:47 Hgb 9.8 gm/dL (12-16) L 02/24/17 04:47 Hct 29.4 % (41.0-60) L 02/24/17 04:47 MCV 88.3 fl (81-100) 02/24/17 04:47 MCH 29.5 pg (27.0-31.0) 02/24/17 04:47 MCHC Differential 33.4 pg (28.0-36.0) 02/24/17 04:47 RDW 13.8 % (11.5-20.0) 02/24/17 04:47 Plt Count 232 Th/cmm (150-400) 02/24/17 04:47 MPV 8.4 fl 02/24/17 04:47 Neutrophils % 55.0 % (40.0-80.0) 02/24/17 04:47 Lymphocytes % 27.0 % (20.0-50.0) 02/24/17 04:47 Monocytes % 8.0 % (2.0-10.0) 02/24/17 04:47 Eosinophils % 9.3 % (0.0-5.0) H 02/24/17 04:47 Basophils % 0.7 % (0.0-2.0) 02/24/17 04:47 ESR 115 mm/hr (0-30) H 02/24/17 04:47 PT 10.0 SECONDS (9.5-11.5) 02/22/17 17:26 INR 0.96 (0.5-1.4) 02/22/17 17:26 PTT (Actin FS) 25.5 SECONDS (26.0-38.0) L 02/22/17 17:26 Sodium 141 mEq/L (136-145) 02/24/17 04:47 Potassium 3.8 mEq/L (3.5-5.1) 02/24/17 04:47 Chloride 108 mEq/L (98-107) H 02/24/17 04:47 Carbon Dioxide 27.5 mEq/L (21.0-31.0) 02/24/17 04:47 Anion Gap 9.3 (7.0-16.0) 02/24/17 04:47 BUN 26 mg/dL (7-25) H 02/24/17 04:47 Creatinine 1.0 mg/dL (0.6-1.2) 02/24/17 04:47 Est GFR ( Amer) TNP 02/24/17 04:47 Est GFR (Non-Af Amer) TNP 02/24/17 04:47 BUN/Creatinine Ratio 26.0 02/24/17 04:47 Glucose 189 mg/dL (70-105) H 02/24/17 04:47 POC Glucose 219 MG/DL (70 - 105) H 02/24/17 11:59 Hemoglobin A1c % 9.1 % (4.0-6.0) H 02/22/17 17:26 Whole Bld Lactic Acid 1.38 mmol/L (0.60-1.99) 02/22/17 19:45 Calcium 8.8 mg/dL (8.6-10.3) 02/24/17 04:47 Total Bilirubin 0.3 mg/dL (0.3-1.0) 02/22/17 17:26 AST 24 U/L (13-39) 02/22/17 17:26 ALT 21 U/L (7-52) 02/22/17 17:26 Alkaline Phosphatase 207 U/L (34-104) H 02/22/17 17:26 Creatine Kinase 70 U/L (30-223) 02/22/17 17:26 Troponin I 0.01 ng/mL (0.01-0.05) 02/22/17 17:26 C-Reactive Protein 1.3 mg/dL (0.0-0.9) H 02/24/17 04:47 B-Natriuretic Peptide 72.9 pg/mL (5.0-100.0) 02/23/17 05:30 Total Protein 8.4 gm/dL (6.0-8.3) H 02/22/17 17:26 Albumin 4.0 gm/dL (3.7-5.3) 02/22/17 17:26 Globulin 4.4 gm/dL 02/22/17 17:26 Albumin/Globulin Ratio 0.9 (1.0-1.8) L 02/22/17 17:26 Triglycerides 191 mg/dL (<150) H 02/23/17 05:30 Cholesterol 134 mg/dL (<200) 02/23/17 05:30 LDL Cholesterol Direct 68 mg/dL (75-193) L 02/23/17 05:30 HDL Cholesterol 36 mg/dL (23-92) 02/23/17 05:30 TSH 1.77 uIU/ml (0.34-5.60) 02/23/17 05:30 Urine Source CLEAN C 02/22/17 18:50 Urine Color YELLOW 02/22/17 18:50 Urine Clarity CLOUDY (CLEAR) H 02/22/17 18:50 Urine pH 5.5 (4.6 - 8.0) 02/22/17 18:50 Ur Specific [place] 1.015 (1.005-1.030) 02/22/17 18:50 Urine Protein TRACE mg/dL (NEGATIVE) 02/22/17 18:50 Urine Glucose (UA) >=1000 mg/dL (NEGATIVE) H 02/22/17 18:50 Urine Ketones NEGATIVE mg/dL (NEGATIVE) 02/22/17 18:50 Urine Blood MODERATE (NEGATIVE) H 02/22/17 18:50 Urine Nitrate POSITIVE (NEGATIVE) H 02/22/17 18:50 Urine Bilirubin NEGATIVE (NEGATIVE) 02/22/17 18:50 Urine Urobilinogen 0.2 E.U./dL (0.2 - 1.0) 02/22/17 18:50 Ur Leukocyte Esterase MODERATE (NEGATIVE) H 02/22/17 18:50 Urine RBC 10-25 /hpf (0-5) H 02/22/17 18:50 Urine WBC >100 /hpf (0-5) H 02/22/17 18:50 Ur Epithelial Cells MODERATE /lpf (FEW) 02/22/17 18:50 Urine Bacteria MANY /hpf (NONE SEEN) 02/22/17 18:50 - Physical Exam Vitals and I&O: Vital Signs Temp 98.8 F 02/24/17 12:00 Pulse 72 02/24/17 12:00 Resp 18 02/24/17 12:00 BP 161/55 02/24/17 12:00 Pulse Ox 94 02/24/17 12:00 Intake & Output 02/23/17 02/24/17 02/24/17 18:59 06:59 18:59 Intake Total 1000 1000 Balance 1000 1000 Intake: Intake, IV Amount 1000 1000 Sodium Chloride 0.9% 1, 1000 1000 000 ml @ 125 mls/hr IV . Q8H [facility] Rx#:[id number] Active Medications: Current Medications Acetaminophen (Tylenol) 325 mg PO Q4HR PRN PRN Reason: Pain (Mild) Stop: 04/23/17 20:52 Last Admin: 02/23/17 22:25 Dose: 325 mg Albuterol Sulfate (Albuterol 2.5mg/3ml Neb Ud) 2.5 mg HHN Q6HRT PRN PRN Reason: shortness of breath Stop: 04/24/17 18:59 Amlodipine Besylate (Norvasc) 5 mg PO DAILY [facility] Stop: 04/24/17 08:59 Last Admin: 02/24/17 09:21 Dose: 5 mg Aspirin (Aspirin Chewable) 81 mg PO DAILY [facility] Stop: 04/24/17 08:59 Last Admin: 02/24/17 09:21 Dose: 81 mg Citalopram Hydrobromide (Celexa) 40 mg PO HS [facility] Stop: 04/23/17 20:59 Last Admin: 02/23/17 22:23 Dose: 40 mg Clopidogrel Bisulfate (Plavix) 75 mg PO DAILY [facility] Stop: 04/24/17 08:59 Last Admin: 02/24/17 09:22 Dose: 75 mg Docusate Sodium (Colace) 100 mg PO DAILY [facility] Stop: 04/24/17 08:59 Last Admin: 02/24/17 09:21 Dose: 100 mg Famotidine (Pepcid) 20 mg PO DAILY [facility] Stop: 04/24/17 08:59 Last Admin: 02/24/17 09:21 Dose: 20 mg Ferrous Sulfate (Iron) 325 mg PO DAILY [facility] Stop: 04/24/17 08:59 Last Admin: 02/24/17 09:20 Dose: 325 mg Furosemide (Lasix) 40 mg PO DAILY [facility] Stop: 04/24/17 08:59 Last Admin: 02/24/17 09:22 Dose: 40 mg Sodium Chloride (Nacl 0.9%) 1,000 mls @ 125 mls/hr IV .Q8H [facility] Stop: 04/23/17 23:14 Last Admin: 02/24/17 01:22 Dose: 125 mls/hr Ceftriaxone Sodium 1 gm/ (Sodium Chloride) 50 mls @ 100 mls/hr IV Q24HR [facility] Stop: 04/24/17 17:59 Last Admin: 02/23/17 18:18 Dose: 100 mls/hr Insulin Aspart (Novolog Insulin Sliding Scale) 0 units SUBQ ACHS [facility] PRN Reason: Protocol Stop: 04/23/17 20:59 Last Admin: 02/24/17 12:16 Dose: 4 units Insulin Detemir (Levemir Insulin) 32 units SUBQ QPM [facility] Stop: 04/23/17 21:29 Last Admin: 02/23/17 18:17 Dose: 32 units Lactobacillus Rhamnosus (Culturelle) 1 each PO DAILY [facility] Stop: 04/25/17 08:59 Last Admin: 02/24/17 09:20 Dose: 1 each Lisinopril (Zestril) 5 mg PO DAILY [facility] Stop: 04/24/17 08:59 Last Admin: 02/24/17 09:21 Dose: 5 mg Miscellaneous (Probiotic Screen) 1 ea PRN PRN PRN Reason: PROTOCOL Stop: 04/24/17 09:59 Senna (Senna) 8.6 mg PO DAILY [facility] Stop: 04/24/17 08:59 Last Admin: 02/24/17 09:20 Dose: 8.6 mg Vitamin B Complex/Vitamin C (Vitamin B Complex W/C) 1 tab PO DAILY [facility] Stop: 04/24/17 08:59 Last Admin: 02/24/17 09:20 Dose: 1 tab Wound Care/Dressing Products ([place]rah[place]) 1 appl TP DAILY [facility] Stop: 04/25/17 11:14 General: weak, alert HEENT: NC/AT, PERRLA Neck: Supple Lungs: CTAB Cardiovascular: RRR, Normal S1, Normal S2, without murmur Abdomen: soft, non-distended, positive bowel sound Extremities: excoriation Internal Medicine Assmt/Plan - Assessment Assessment: H/O recurrent urinary tract infection (Acute) Z87.440 H/O type 2 diabetes mellitus (Acute) Z86.39 H/O: HTN (hypertension) (Acute) Z86.79 Nonhealing ulcer of heel (Acute) L97.409 r/o osteomyelitis (Acute) - Plan Plan: continue with wound care iv antibiotics as per id ivf for hydration continue current plan of care Nutritional Asmnt/Malnutr-PDOC - Dietary Evaluation Malnutrition Findings (Please click <Entered> for more info): Nutritional Asmnt/Malnutrition Start: 02/23/17 11: 00 Text: Status: Complete Freq: Document 02/23/17 14:16 MPENAFUERT (Rec: 02/23/17 14:25 MPENAFUERT JON -FNS4) Nutritional Asmnt/Malnutrition Patient General Information Nutritional Screening Consult Diagnosis Diabetic ulcer/wound/ dehydration/DM uncontrolled Pertinent Medical Hx/Surgical Hx PMH: HTN, DM, CAD, CVA, TIA, dyslipidemia per MD notes Subjective Information Pt seen for Nutrition Consult (blood glucose level of 255). Pt seen resting in bed while eating lunch w/ son at bedside . Pt appeared over-nourished for ht, c/w anthropometrics and verified by pt. Per son, pt recently moved from a [facility], where she did not follow any diet restrictions. Pt reported "okay" appetite, and denied any difficulty chewing/swallowing. RN reported that pt has been eating 50-60% on average. RD encouraged pt to try to increase PO intakes for adequate nutrition for wound healing. Pt may benefit from Boost Glucose Control oral supplement. Pt was interested in strawberry-flavored oral supplement. RD to notify [facility] staff. RD communicated w/ RN regarding RD rec for Boost Glucose Control BID; RN paged attending MD; awaiting orders. Pt is not yet meeting optimal nutritional needs. Pt declined nutrition education. Current Diet Order/ [facility] Patient / S.O Can Pertinent Medications colace, pepcid, iron, lasix, insulin aspart, levemir, culturelle, senna, VIT B complex w/ VIT C Pertinent Labs BG 179 H, POC BG 165 H, BUN 38 H, Triglycerides 191 H, H/H 10/6 L/31/3 L, LDL 68 L Nutritional Hx/Data Height 5 ft 2 in Height (Calculated Centimeters) 157.5 Current Weight (lbs) 225 lb Weight (Calculated Kilograms) 102.1 Weight (Calculated Grams) 545746.3 Usual body Weight (lbs) 223 % Usual Body Weight 101 [place] Body Weight 110 lb, 50 kg. Adj IBW ( obesity): 139 lb, 63 kg % [place] Body Weight 204 Recent Weight Change No Weight Status Obese GI Symptoms GI Symptoms None Food Allergies No Usual diet at home Regular Skin Integrity/Comment: [place]: 13; diabetic ulcer L heel noted; redness to back/ perineal per RN Current %PO Fair (50-74%) Estimated Nutritional Goals BEE in Kcals: Adj wt of IBW Calories/Kcals/Kg 30-35 kcal/kg Adj IBW (wound healing) Kcals Calculated 6637-3113 kcal/day Protein: Adj wt of IBW Protein g/k.2-1.5 gm/kg Adj IBW (wound healing) Protein Calculated 76-95 gm/day Fluid: ml 3 L/day (30 ml/kg CBW for wound healing, dehydration) Nutritional Problem 1. Problem Problem Increased nutritional needs Etiology related to metabolic demands Signs/Symptoms: as evidenced by estimated nutritional requirements for wound healing. Malnutrition Related to Morbid Obesity Malnutrition related to morbid obesity Weight 200% of ideal wt Query Text:(Any 1 Criteria met) Malnutrition related to morbid obesity Yes Intervention/Recommendation Recommendations by RD Increase Calorie Intake Protein supplementation Comments * Recommend CCHO diet, Boost Glucose Control BID (oral supplement provides an additional 500 kcal/day and 28 gm protein/day) Expected Outcomes/Goals Expected Outcomes/Goals - Monitor appetite and PO intakes w/ goal of pt meeting at least 75% of estimated nutritional needs, labs trending WNL, normal GI function, and skin integrity/ wt maintenance within 3-5 days
[2017-02-24] MEDS: Therahoney Gel 42.5gm Tube TP SCH (14:40)
[2017-02-24] MEDS ORDERED: Sodium Chloride 0.9% 1,000 ML IV SCH (17:45)
[2017-02-24] MEDS: Insulin Detemir 100 units/mL 10mL Vial SUBQ SCH (17:51)
--- NOTE | 2017-02-24 18:09 | Cardiology ---
02/23/2017 PATIENT OF: Dr. Morillo M-MODE ECHOCARDIOGRAM: Mitral valve, anterior leaflet of mitral valve shows normal excursion, EF velocity. Posterior leaflet of mitral valve shows normal excursion. Left ventricle posterior wall shows increased thickness, normal excursion. Interventricular septum shows increased thickness, normal excursion, hypertrophy of the left ventricle, ejection fraction 55%. Left atrium normal. Aortic root shows normal dimension, normal excursion of aortic leaflets. CONCLUSION: Hypertrophy of the left ventricle, ejection fraction 55%. 2D ECHO: Long axis view showed normal sized left ventricle with hypertrophy of the left ventricle. Left atrium normal. Aortic root shows normal dimension, normal excursion of aortic leaflets. Short axis view of mitral valve normal. Short axis view of aortic valve normal. Apical four chamber view showed normal sized left ventricle, left atrium, right ventricle, right atrium, tricuspid valve and mitral valve. CONCLUSION: Hypertrophy of the left ventricle, ejection fraction 55%. Doppler study shows prominent A wave consistent with poor compliance of left ventricle. Trace tricuspid regurgitation. JOB# [id number]
[2017-02-24] MEDS: cefTRIAXone 1 GM in Sodium Chloride 0.9% 50 ML IV SCH (19:19)
[2017-02-25 05:47] LABS: % BASOPHILS 0.5 % (0.0-2.0); % EOSINOPHILS 7.4 % (0.0-5.0); % LYMPHOCYTES 34.7 % (20.0-50.0); % MONOCYTES 8.8 % (2.0-10.0); % NEUTROPHILS 48.6 % (40.0-80.0); HEMATOCRIT 30.9 % (41.0-60); HEMOGLOBIN 10.6 gm/dL (12-16); MEAN CELL VOLUME 88.9 fl (81-100); MEAN CORPUSCULAR HEMOGLOBIN 30.4 pg (27.0-31.0); MEAN CORPUSCULAR HGB CONC 34.2 pg (28.0-36.0); MEAN PLATELET VOLUME 8.4 fl; PLATELET COUNT 224 Th/cmm (150-400); RED BLOOD COUNT 3.48 Mil/cmm (3.80-5.20); RED CELL DISTRIBUTION WIDTH 13.9 % (11.5-20.0)
[2017-02-25 06:10] LABS: ANION GAP 9.8 (7.0-16.0); BUN - UREA NITROGEN 21 mg/dL (7-25); BUN/CREATININE RATIO 26.3; CALCIUM SERUM 9.4 mg/dL (8.6-10.3); CHLORIDE 106 mEq/L (98-107); CREATININE - SERUM 0.8 mg/dL (0.6-1.2); GLUCOSE 195 mg/dL (70-105); POTASSIUM SERUM 3.8 mEq/L (3.5-5.1); SODIUM SERUM 140 mEq/L (136-145)
[2017-02-25] MEDS: INSULIN ASPART SLIDING SCALE 100 UNITS/ML UNIT SUBQ SCH ×4 (06:37→20:37)
[2017-02-25] MEDS: Ferrous Sulfate 325 MG TAB PO SCH (09:57)
[2017-02-25] MEDS: Lactobacillus Rhamnosus 10 Billion CFU Capsule PO SCH (10:00)
[2017-02-25] MEDS: Aspirin 81mg Chewable Tab PO SCH (10:02)
[2017-02-25] MEDS: Ascorbic Acid/Vit B Complex Tab PO SCH (10:07)
--- NOTE | 2017-02-25 11:03 | Progress Notes ---
DATE: SUBJECTIVE: The patient was seen in her room, lying on the bed. The patient is awake, alert, oriented x 3. The patient denies any pain or discomfort at this time. Otherwise, the patient appears to be comfortable in no acute distress. OBJECTIVE: VITAL SIGNS: Temperature 98.3, heart rate of 63, blood pressure ____, respiration of 19, 96% on room air. HEENT: Head is atraumatic and normocephalic. Eyes: Bilateral conjunctivae are clear. Bilateral pupils are equally round and reactive. NECK: Supple. No JVD. CARDIOVASCULAR: S1 and S2, without murmur. PULMONARY: Clear to auscultation. GASTROINTESTINAL: Soft and nontender without guarding. Positive bowel sounds. MUSCULOSKELETAL: No clubbing, no cyanosis noted. ASSESSMENT: 1. Diabetes mellitus. 2. Left heel ulcer. 3. Hypertension. 4. Urinary tract infection. 5. History of cerebrovascular accident. 6. Coronary artery disease. 7. Hyperlipidemia. 8. Depression. 9. Iron deficiency anemia. 10. Gastroesophageal reflux disease. PLAN: The patient will be discharged today to [facility] to be followed by Dr. Morillo. Treatment plans were discussed with the patient's nurse. Treatment plans were discussed with Dr. Morillo. JOB# [id number]
[2017-02-25] MEDS: Therahoney Gel 42.5gm Tube TP SCH (14:08)
[2017-02-25] MEDS: cefTRIAXone 1 GM in Sodium Chloride 0.9% 50 ML IV SCH (17:29)
[2017-02-25] MEDS: Insulin Detemir 100 units/mL 10mL Vial SUBQ SCH (18:04)
--- NOTE | 2017-02-25 22:17 | Infectious Disease Prog Note ---
Infectious Disease Subjective - Review of Systems Service Date: 02/25/17 Subjective: Comfortable, not in distress. Infectious Disease Objective - Results Result Diagrams: 02/25/17 05:02 02/25/17 05:02 Recent Labs: Laboratory Last Values WBC 6.0 Th/cmm (4.8-10.8) 02/25/17 05:02 RBC 3.48 Mil/cmm (3.80-5.20) L 02/25/17 05:02 Hgb 10.6 gm/dL (12-16) L 02/25/17 05:02 Hct 30.9 % (41.0-60) L 02/25/17 05:02 MCV 88.9 fl (81-100) 02/25/17 05:02 MCH 30.4 pg (27.0-31.0) 02/25/17 05:02 MCHC Differential 34.2 pg (28.0-36.0) 02/25/17 05:02 RDW 13.9 % (11.5-20.0) 02/25/17 05:02 Plt Count 224 Th/cmm (150-400) 02/25/17 05:02 MPV 8.4 fl 02/25/17 05:02 Neutrophils % 48.6 % (40.0-80.0) 02/25/17 05:02 Lymphocytes % 34.7 % (20.0-50.0) 02/25/17 05:02 Monocytes % 8.8 % (2.0-10.0) 02/25/17 05:02 Eosinophils % 7.4 % (0.0-5.0) H 02/25/17 05:02 Basophils % 0.5 % (0.0-2.0) 02/25/17 05:02 ESR 115 mm/hr (0-30) H 02/24/17 04:47 PT 10.0 SECONDS (9.5-11.5) 02/22/17 17:26 INR 0.96 (0.5-1.4) 02/22/17 17:26 PTT (Actin FS) 25.5 SECONDS (26.0-38.0) L 02/22/17 17:26 Sodium 140 mEq/L (136-145) 02/25/17 05:02 Potassium 3.8 mEq/L (3.5-5.1) 02/25/17 05:02 Chloride 106 mEq/L (98-107) 02/25/17 05:02 Carbon Dioxide 28.0 mEq/L (21.0-31.0) 02/25/17 05:02 Anion Gap 9.8 (7.0-16.0) 02/25/17 05:02 BUN 21 mg/dL (7-25) 02/25/17 05:02 Creatinine 0.8 mg/dL (0.6-1.2) 02/25/17 05:02 Est GFR ( Amer) TNP 02/25/17 05:02 Est GFR (Non-Af Amer) TNP 02/25/17 05:02 BUN/Creatinine Ratio 26.3 02/25/17 05:02 Glucose 195 mg/dL (70-105) H 02/25/17 05:02 POC Glucose 246 MG/DL (70 - 105) H 02/25/17 19:25 Hemoglobin A1c % 9.1 % (4.0-6.0) H 02/22/17 17:26 Whole Bld Lactic Acid 1.38 mmol/L (0.60-1.99) 02/22/17 19:45 Calcium 9.4 mg/dL (8.6-10.3) 02/25/17 05:02 Total Bilirubin 0.3 mg/dL (0.3-1.0) 02/22/17 17:26 AST 24 U/L (13-39) 02/22/17 17:26 ALT 21 U/L (7-52) 02/22/17 17:26 Alkaline Phosphatase 207 U/L (34-104) H 02/22/17 17:26 Creatine Kinase 70 U/L (30-223) 02/22/17 17:26 Troponin I 0.01 ng/mL (0.01-0.05) 02/22/17 17:26 C-Reactive Protein 1.3 mg/dL (0.0-0.9) H 02/24/17 04:47 B-Natriuretic Peptide 72.9 pg/mL (5.0-100.0) 02/23/17 05:30 Total Protein 8.4 gm/dL (6.0-8.3) H 02/22/17 17:26 Albumin 4.0 gm/dL (3.7-5.3) 02/22/17 17:26 Globulin 4.4 gm/dL 02/22/17 17:26 Albumin/Globulin Ratio 0.9 (1.0-1.8) L 02/22/17 17:26 Triglycerides 191 mg/dL (<150) H 02/23/17 05:30 Cholesterol 134 mg/dL (<200) 02/23/17 05:30 LDL Cholesterol Direct 68 mg/dL (75-193) L 02/23/17 05:30 HDL Cholesterol 36 mg/dL (23-92) 02/23/17 05:30 TSH 1.77 uIU/ml (0.34-5.60) 02/23/17 05:30 Urine Source CLEAN C 02/22/17 18:50 Urine Color YELLOW 02/22/17 18:50 Urine Clarity CLOUDY (CLEAR) H 02/22/17 18:50 Urine pH 5.5 (4.6 - 8.0) 02/22/17 18:50 Ur Specific [place] 1.015 (1.005-1.030) 02/22/17 18:50 Urine Protein TRACE mg/dL (NEGATIVE) 02/22/17 18:50 Urine Glucose (UA) >=1000 mg/dL (NEGATIVE) H 02/22/17 18:50 Urine Ketones NEGATIVE mg/dL (NEGATIVE) 02/22/17 18:50 Urine Blood MODERATE (NEGATIVE) H 02/22/17 18:50 Urine Nitrate POSITIVE (NEGATIVE) H 02/22/17 18:50 Urine Bilirubin NEGATIVE (NEGATIVE) 02/22/17 18:50 Urine Urobilinogen 0.2 E.U./dL (0.2 - 1.0) 02/22/17 18:50 Ur Leukocyte Esterase MODERATE (NEGATIVE) H 02/22/17 18:50 Urine RBC 10-25 /hpf (0-5) H 02/22/17 18:50 Urine WBC >100 /hpf (0-5) H 02/22/17 18:50 Ur Epithelial Cells MODERATE /lpf (FEW) 02/22/17 18:50 Urine Bacteria MANY /hpf (NONE SEEN) 02/22/17 18:50 - Physical Exam Vitals and I&O: Vital Signs Temp 97.7 F 02/25/17 20:00 Pulse 85 02/25/17 20:00 Resp 18 02/25/17 20:00 BP 159/70 02/25/17 20:00 Pulse Ox 97 02/25/17 20:00 Intake & Output 02/25/17 02/25/17 02/26/17 06:59 18:59 06:59 Intake Total 70 1000 50 Balance 70 1000 50 Weight (lbs) 102.784 kg 102.784 kg Intake: Intake, IV Amount 50 50 cefTRIAXone 1 gm In 50 50 Sodium Chloride 0.9% 50 ml @ 100 mls/hr IV Q24HR REPLACED BY [facility] Rx#:[id number] Oral 20 1000 Other: # Voids 3 3 Active Medications: Current Medications Acetaminophen (Tylenol) 325 mg PO Q4HR PRN PRN Reason: Pain (Mild) Stop: 04/23/17 20:52 Last Admin: 02/25/17 11:49 Dose: 325 mg Albuterol Sulfate (Albuterol 2.5mg/3ml Neb Ud) 2.5 mg HHN Q6HRT PRN PRN Reason: shortness of breath Stop: 04/24/17 18:59 Amlodipine Besylate (Norvasc) 5 mg PO DAILY REPLACED BY [facility] Stop: 04/24/17 08:59 Last Admin: 02/25/17 10:01 Dose: 5 mg Aspirin (Aspirin Chewable) 81 mg PO DAILY REPLACED BY [facility] Stop: 04/24/17 08:59 Last Admin: 02/25/17 10:02 Dose: 81 mg Citalopram Hydrobromide (Celexa) 40 mg PO HS REPLACED BY [facility] Stop: 04/23/17 20:59 Last Admin: 02/25/17 20:38 Dose: 40 mg Clopidogrel Bisulfate (Plavix) 75 mg PO DAILY VEE Stop: 04/24/17 08:59 Last Admin: 02/25/17 10:02 Dose: 75 mg Docusate Sodium (Colace) 100 mg PO DAILY REPLACED BY [facility] Stop: 04/24/17 08:59 Last Admin: 02/25/17 10:02 Dose: 100 mg Famotidine (Pepcid) 20 mg PO DAILY VEE Stop: 04/24/17 08:59 Last Admin: 02/25/17 09:56 Dose: 20 mg Ferrous Sulfate (Iron) 325 mg PO DAILY VEE Stop: 04/24/17 08:59 Last Admin: 02/25/17 09:57 Dose: 325 mg Furosemide (Lasix) 40 mg PO DAILY VEE Stop: 04/24/17 08:59 Last Admin: 02/25/17 10:00 Dose: 40 mg Ceftriaxone Sodium 1 gm/ (Sodium Chloride) 50 mls @ 100 mls/hr IV Q24HR VEE Stop: 04/24/17 17:59 Last Infusion: 02/25/17 19:54 Dose: Infused Sodium Chloride (Nacl 0.9%) 1,000 mls @ 0 mls/hr IV .Q0M VEE PRN Reason: TKO Stop: 04/25/17 17:44 Insulin Aspart (Novolog Insulin Sliding Scale) 0 units SUBQ ACHS VEE PRN Reason: Protocol Stop: 04/23/17 20:59 Last Admin: 02/25/17 20:37 Dose: 4 units Insulin Detemir (Levemir Insulin) 32 units SUBQ QPM VEE Stop: 04/23/17 21:29 Last Admin: 02/25/17 18:04 Dose: 32 units Lactobacillus Rhamnosus (Culturelle) 1 each PO DAILY VEE Stop: 04/25/17 08:59 Last Admin: 02/25/17 10:00 Dose: 1 each Lisinopril (Zestril) 5 mg PO DAILY VEE Stop: 04/24/17 08:59 Last Admin: 02/25/17 10:01 Dose: 5 mg Miscellaneous (Probiotic Screen) 1 ea PRN PRN PRN Reason: PROTOCOL Stop: 04/24/17 09:59 Senna (Senna) 8.6 mg PO DAILY VEE Stop: 04/24/17 08:59 Last Admin: 02/25/17 10:00 Dose: 8.6 mg Vitamin B Complex/Vitamin C (Vitamin B Complex W/C) 1 tab PO DAILY VEE Stop: 04/24/17 08:59 Last Admin: 02/25/17 10:07 Dose: 1 tab Wound Care/Dressing Products (Therahoney) 1 appl TP DAILY VEE Stop: 04/25/17 11:14 Last Admin: 02/25/17 14:08 Dose: 1 appl General: no acute distress, well developed, well nourished HEENT: atraumatic, normocephalic, PERRLA, EOMI Neck: supple, no thyromegaly Cardiovascular: S1S2, regular Lungs: clear to auscultation bilaterally, clear to percussion Abdomen: soft, no tender, no distended, no mass Extremities: other (Left heel wound.), no cyanosis, no clubbing, no edema Neurological: awake, alert, oriented Infectious Disease Assmt/Plan - Problem List Patient Problems: All Active Problems H/O recurrent urinary tract infection (Acute) Z87.440 H/O type 2 diabetes mellitus (Acute) Z86.39 H/O: HTN (hypertension) (Acute) Z86.79 Nonhealing ulcer of heel (Acute) L97.409 r/o osteomyelitis (Acute) - Assessment Assessment: 1. Nonhealing, complicated wound on left heel. Rule out chronic ostiomyelitis. ESR 115. CRP 1.3. 2. Diabetes mellitus type 2. Uncontrolled. 3. UTI. Klebsiella, and E coli. 4. Hypertension. 5. PAD ( please review Arterial u/s) - Plan Plan: Wound care, antibiotic Rocephin. Three-phase bone scan of left lower extremity. Dr Yan, vascular surgery consult. Nutritional Asmnt/Malnutr-PDOC - Dietary Evaluation Malnutrition Findings (Please click <Entered> for more info): Nutritional Asmnt/Malnutrition Start: 02/23/17 11: 00 Text: Status: Complete Freq: Document 02/23/17 14:16 TIFFANY (Rec: 02/23/17 14:25 [facility] Nutritional Asmnt/Malnutrition Patient General Information Nutritional Screening Consult Diagnosis Diabetic ulcer/wound/ dehydration/DM uncontrolled Pertinent Medical Hx/Surgical Hx PMH: HTN, DM, CAD, CVA, TIA, dyslipidemia per MD notes Subjective Information Pt seen for Nutrition Consult (blood glucose level of 255). Pt seen resting in bed while eating lunch w/ son at bedside . Pt appeared over-nourished for ht, c/w anthropometrics and verified by pt. Per son, pt recently moved from a [facility], where she did not follow any diet restrictions. Pt reported "okay" appetite, and denied any difficulty chewing/swallowing. RN reported that pt has been eating 50-60% on average. RD encouraged pt to try to increase PO intakes for adequate nutrition for wound healing. Pt may benefit from Boost Glucose Control oral supplement. Pt was interested in strawberry-flavored oral supplement. RD to notify [facility] staff. RD communicated w/ RN regarding RD rec for Boost Glucose Control BID; RN paged attending MD; awaiting orders. Pt is not yet meeting optimal nutritional needs. Pt declined nutrition education. Current Diet Order/ Nutrition Support [facility] Patient / S.O Can Pertinent Medications colace, pepcid, iron, lasix, insulin aspart, levemir, culturelle, senna, VIT B complex w/ VIT C Pertinent Labs BG 179 H, POC BG 165 H, BUN 38 H, Triglycerides 191 H, H/H 10/6 L/31/3 L, LDL 68 L Nutritional Hx/Data Height 1.57 m Height (Calculated Centimeters) 157.5 Current Weight (lbs) 102.058 kg Weight (Calculated Kilograms) 102.1 Weight (Calculated Grams) 287707.3 Usual body Weight (lbs) 223 % Usual Body Weight 101 [place] Body Weight 110 lb, 50 kg. Adj IBW ( obesity): 139 lb, 63 kg % [place] Body Weight 204 Recent Weight Change No Weight Status Obese GI Symptoms GI Symptoms None Food Allergies No Usual diet at home Regular Skin Integrity/Comment: [place]: 13; diabetic ulcer L heel noted; redness to back/ perineal per RN Current %PO Fair (50-74%) Estimated Nutritional Goals BEE in Kcals: Adj wt of IBW Calories/Kcals/Kg 30-35 kcal/kg Adj IBW (wound healing) Kcals Calculated 0138-8658 kcal/day Protein: Adj wt of IBW Protein g/k.2-1.5 gm/kg Adj IBW (wound healing) Protein Calculated 76-95 gm/day Fluid: ml 3 L/day (30 ml/kg CBW for wound healing, dehydration) Nutritional Problem 1. Problem Problem Increased nutritional needs Etiology related to metabolic demands Signs/Symptoms: as evidenced by estimated nutritional requirements for wound healing. Malnutrition Related to Morbid Obesity Malnutrition related to morbid obesity Weight 200% of ideal wt Query Text:(Any 1 Criteria met) Malnutrition related to morbid obesity Yes Intervention/Recommendation Recommendations by RD Increase Calorie Intake Protein supplementation Comments * Recommend [facility] diet, Boost Glucose Control BID (oral supplement provides an additional 500 kcal/day and 28 gm protein/day) Expected Outcomes/Goals Expected Outcomes/Goals - Monitor appetite and PO intakes w/ goal of pt meeting at least 75% of estimated nutritional needs, labs trending WNL, normal GI function, and skin integrity/ wt maintenance within 3-5 days
[2017-02-26] MEDS: INSULIN ASPART SLIDING SCALE 100 UNITS/ML UNIT SUBQ SCH ×4 (06:32→20:58)
--- NOTE | 2017-02-26 08:29 | Diagnostic Imaging Report ---
Exam: Nuclear scan, 3 phase bone scan. HISTORY: Left heel osteomyelitis. Findings: Utilizing 20.8 mCi technetium 99 MDP 3 phase bone scan of the feet was obtained. The study is limited. The study demonstrates increased uptake radiopharmaceutical throughout the left os calcaneus on delayed views. The immediate perfusion and study images of poor quality. There is increased uptake of the radiopharmaceutical throughout the distal left toes. IMPRESSION: Increased uptake of radiopharmaceutical throughout os calcaneus suggestive of osteomyelitic involvement. Increased uptake of right midcervical distal left toes most likely represent degenerative changes.
[2017-02-26] MEDS: Ferrous Sulfate 325 MG TAB PO SCH (08:51)
[2017-02-26] MEDS: Aspirin 81mg Chewable Tab PO SCH (08:51)
[2017-02-26] MEDS: Lactobacillus Rhamnosus 10 Billion CFU Capsule PO SCH (08:52)
[2017-02-26] MEDS: Ascorbic Acid/Vit B Complex Tab PO SCH (09:04)
--- NOTE | 2017-02-26 09:56 | General Progress Note ---
Subjective - Review of Systems Events since last encounter: patient in no distress Objective - Results Result Diagrams: 02/25/17 05:02 02/25/17 05:02 Recent Labs: Laboratory Last Values WBC 6.0 Th/cmm (4.8-10.8) 02/25/17 05:02 RBC 3.48 Mil/cmm (3.80-5.20) L 02/25/17 05:02 Hgb 10.6 gm/dL (12-16) L 02/25/17 05:02 Hct 30.9 % (41.0-60) L 02/25/17 05:02 MCV 88.9 fl (81-100) 02/25/17 05:02 MCH 30.4 pg (27.0-31.0) 02/25/17 05:02 MCHC Differential 34.2 pg (28.0-36.0) 02/25/17 05:02 RDW 13.9 % (11.5-20.0) 02/25/17 05:02 Plt Count 224 Th/cmm (150-400) 02/25/17 05:02 MPV 8.4 fl 02/25/17 05:02 Neutrophils % 48.6 % (40.0-80.0) 02/25/17 05:02 Lymphocytes % 34.7 % (20.0-50.0) 02/25/17 05:02 Monocytes % 8.8 % (2.0-10.0) 02/25/17 05:02 Eosinophils % 7.4 % (0.0-5.0) H 02/25/17 05:02 Basophils % 0.5 % (0.0-2.0) 02/25/17 05:02 ESR 115 mm/hr (0-30) H 02/24/17 04:47 PT 10.0 SECONDS (9.5-11.5) 02/22/17 17:26 INR 0.96 (0.5-1.4) 02/22/17 17:26 PTT (Actin FS) 25.5 SECONDS (26.0-38.0) L 02/22/17 17:26 Sodium 140 mEq/L (136-145) 02/25/17 05:02 Potassium 3.8 mEq/L (3.5-5.1) 02/25/17 05:02 Chloride 106 mEq/L (98-107) 02/25/17 05:02 Carbon Dioxide 28.0 mEq/L (21.0-31.0) 02/25/17 05:02 Anion Gap 9.8 (7.0-16.0) 02/25/17 05:02 BUN 21 mg/dL (7-25) 02/25/17 05:02 Creatinine 0.8 mg/dL (0.6-1.2) 02/25/17 05:02 Est GFR ( Amer) TNP 02/25/17 05:02 Est GFR (Non-Af Amer) TNP 02/25/17 05:02 BUN/Creatinine Ratio 26.3 02/25/17 05:02 Glucose 195 mg/dL (70-105) H 02/25/17 05:02 POC Glucose 215 MG/DL (70 - 105) H 02/26/17 04:57 Hemoglobin A1c % 9.1 % (4.0-6.0) H 02/22/17 17:26 Whole Bld Lactic Acid 1.38 mmol/L (0.60-1.99) 02/22/17 19:45 Calcium 9.4 mg/dL (8.6-10.3) 02/25/17 05:02 Total Bilirubin 0.3 mg/dL (0.3-1.0) 02/22/17 17:26 AST 24 U/L (13-39) 02/22/17 17:26 ALT 21 U/L (7-52) 02/22/17 17:26 Alkaline Phosphatase 207 U/L (34-104) H 02/22/17 17:26 Creatine Kinase 70 U/L (30-223) 02/22/17 17:26 Troponin I 0.01 ng/mL (0.01-0.05) 02/22/17 17:26 C-Reactive Protein 1.3 mg/dL (0.0-0.9) H 02/24/17 04:47 B-Natriuretic Peptide 72.9 pg/mL (5.0-100.0) 02/23/17 05:30 Total Protein 8.4 gm/dL (6.0-8.3) H 02/22/17 17:26 Albumin 4.0 gm/dL (3.7-5.3) 02/22/17 17:26 Globulin 4.4 gm/dL 02/22/17 17:26 Albumin/Globulin Ratio 0.9 (1.0-1.8) L 02/22/17 17:26 Triglycerides 191 mg/dL (<150) H 02/23/17 05:30 Cholesterol 134 mg/dL (<200) 02/23/17 05:30 LDL Cholesterol Direct 68 mg/dL (75-193) L 02/23/17 05:30 HDL Cholesterol 36 mg/dL (23-92) 02/23/17 05:30 TSH 1.77 uIU/ml (0.34-5.60) 02/23/17 05:30 Urine Source CLEAN C 02/22/17 18:50 Urine Color YELLOW 02/22/17 18:50 Urine Clarity CLOUDY (CLEAR) H 02/22/17 18:50 Urine pH 5.5 (4.6 - 8.0) 02/22/17 18:50 Ur Specific [place] 1.015 (1.005-1.030) 02/22/17 18:50 Urine Protein TRACE mg/dL (NEGATIVE) 02/22/17 18:50 Urine Glucose (UA) >=1000 mg/dL (NEGATIVE) H 02/22/17 18:50 Urine Ketones NEGATIVE mg/dL (NEGATIVE) 02/22/17 18:50 Urine Blood MODERATE (NEGATIVE) H 02/22/17 18:50 Urine Nitrate POSITIVE (NEGATIVE) H 02/22/17 18:50 Urine Bilirubin NEGATIVE (NEGATIVE) 02/22/17 18:50 Urine Urobilinogen 0.2 E.U./dL (0.2 - 1.0) 02/22/17 18:50 Ur Leukocyte Esterase MODERATE (NEGATIVE) H 02/22/17 18:50 Urine RBC 10-25 /hpf (0-5) H 02/22/17 18:50 Urine WBC >100 /hpf (0-5) H 02/22/17 18:50 Ur Epithelial Cells MODERATE /lpf (FEW) 02/22/17 18:50 Urine Bacteria MANY /hpf (NONE SEEN) 02/22/17 18:50 - Physical Exam Vitals and I&O: Vital Signs Temp 97.3 F 02/26/17 08:00 Pulse 83 02/26/17 08:52 Resp 18 02/26/17 08:00 BP 171/81 02/26/17 08:52 Pulse Ox 94 02/26/17 08:00 Intake & Output 02/25/17 02/26/17 02/26/17 18:59 06:59 18:59 Intake Total 1000 110 Balance 1000 110 Weight (lbs) 102.784 kg 102.013 kg Intake: Intake, IV Amount 50 cefTRIAXone 1 gm In 50 Sodium Chloride 0.9% 50 ml @ 100 mls/hr IV Q24HR [facility] Rx#:[id number] Oral 1000 60 Other: # Voids 3 3 # Bowel Movements 1 Stool Characteristics Soft Formed Active Medications: Current Medications Acetaminophen (Tylenol) 325 mg PO Q4HR PRN PRN Reason: Pain (Mild) Stop: 04/23/17 20:52 Last Admin: 02/26/17 08:50 Dose: 325 mg Albuterol Sulfate (Albuterol 2.5mg/3ml Neb Ud) 2.5 mg HHN Q6HRT PRN PRN Reason: shortness of breath Stop: 04/24/17 18:59 Amlodipine Besylate (Norvasc) 5 mg PO DAILY [facility] Stop: 04/24/17 08:59 Last Admin: 02/26/17 08:52 Dose: 5 mg Aspirin (Aspirin Chewable) 81 mg PO DAILY VEE Stop: 04/24/17 08:59 Last Admin: 02/26/17 08:51 Dose: 81 mg Citalopram Hydrobromide (Celexa) 40 mg PO HS VEE Stop: 04/23/17 20:59 Last Admin: 02/25/17 20:38 Dose: 40 mg Clopidogrel Bisulfate (Plavix) 75 mg PO DAILY VEE Stop: 04/24/17 08:59 Last Admin: 02/26/17 08:51 Dose: 75 mg Docusate Sodium (Colace) 100 mg PO DAILY [facility] Stop: 04/24/17 08:59 Last Admin: 02/26/17 08:51 Dose: 100 mg Famotidine (Pepcid) 20 mg PO DAILY VEE Stop: 04/24/17 08:59 Last Admin: 02/26/17 08:50 Dose: 20 mg Ferrous Sulfate (Iron) 325 mg PO DAILY VEE Stop: 04/24/17 08:59 Last Admin: 02/26/17 08:51 Dose: 325 mg Furosemide (Lasix) 40 mg PO DAILY [facility] Stop: 04/24/17 08:59 Last Admin: 02/26/17 08:51 Dose: 40 mg Ceftriaxone Sodium 1 gm/ (Sodium Chloride) 50 mls @ 100 mls/hr IV Q24HR VEE Stop: 04/24/17 17:59 Last Infusion: 02/25/17 19:54 Dose: Infused Sodium Chloride (Nacl 0.9%) 1,000 mls @ 0 mls/hr IV .Q0M VEE PRN Reason: TKO Stop: 04/25/17 17:44 Insulin Aspart (Novolog Insulin Sliding Scale) 0 units SUBQ ACHS VEE PRN Reason: Protocol Stop: 04/23/17 20:59 Last Admin: 02/26/17 06:32 Dose: 4 units Insulin Detemir (Levemir Insulin) 32 units SUBQ QPM VEE Stop: 04/23/17 21:29 Last Admin: 02/25/17 18:04 Dose: 32 units Lactobacillus Rhamnosus (Culturelle) 1 each PO DAILY VEE Stop: 04/25/17 08:59 Last Admin: 02/26/17 08:52 Dose: 1 each Lisinopril (Zestril) 5 mg PO DAILY VEE Stop: 04/24/17 08:59 Last Admin: 02/26/17 08:51 Dose: 5 mg Miscellaneous (Probiotic Screen) 1 ea MC PRN PRN PRN Reason: PROTOCOL Stop: 04/24/17 09:59 Oxycodone/Acetaminophen (Percocet 5/325mg Oral Tab) 1 tab PO Q6H PRN PRN Reason: Pain (Moderate) Stop: 04/27/17 09:26 Senna (Senna) 8.6 mg PO DAILY VEE Stop: 04/24/17 08:59 Last Admin: 02/26/17 08:51 Dose: 8.6 mg Vitamin B Complex/Vitamin C (Vitamin B Complex W/C) 1 tab PO DAILY VEE Stop: 04/24/17 08:59 Last Admin: 02/26/17 09:04 Dose: 1 tab Wound Care/Dressing Products (Therahoney) 1 appl TP DAILY [facility] Stop: 04/25/17 11:14 Last Admin: 02/25/17 14:08 Dose: 1 appl General: No acute distress HEENT: Atraumatic, PERRLA Neck: Thyromegaly Cardiovascular: Regular rate, Normal S1 Assessment/Plan - Problem List Patient Problems: All Active Problems H/O recurrent urinary tract infection (Acute) Z87.440 H/O type 2 diabetes mellitus (Acute) Z86.39 H/O: HTN (hypertension) (Acute) Z86.79 Nonhealing ulcer of heel (Acute) L97.409 r/o osteomyelitis (Acute) - Plan Plan: cpm Nutritional Asmnt/Malnutr-PDOC - Dietary Evaluation Malnutrition Findings (Please click <Entered> for more info): Nutritional Asmnt/Malnutrition Start: 02/23/17 11: 00 Text: Status: Complete Freq: Document 02/23/17 14:16 SHANNONENAFULEAH (Rec: 02/23/17 14:25 MPENAFUERT JON -[facility]) Nutritional Asmnt/Malnutrition Patient General Information Nutritional Screening Consult Diagnosis Diabetic ulcer/wound/ dehydration/DM uncontrolled Pertinent Medical Hx/Surgical Hx PMH: HTN, DM, CAD, CVA, TIA, dyslipidemia per MD notes Subjective Information Pt seen for Nutrition Consult (blood glucose level of 255). Pt seen resting in bed while eating lunch w/ son at bedside . Pt appeared over-nourished for ht, c/w anthropometrics and verified by pt. Per son, pt recently moved from a [facility], where she did not follow any diet restrictions. Pt reported "okay" appetite, and denied any difficulty chewing/swallowing. RN reported that pt has been eating 50-60% on average. RD encouraged pt to try to increase PO intakes for adequate nutrition for wound healing. Pt may benefit from Boost Glucose Control oral supplement. Pt was interested in strawberry-flavored oral supplement. RD to notify [facility] staff. RD communicated w/ RN regarding RD rec for Boost Glucose Control BID; RN paged attending MD; awaiting orders. Pt is not yet meeting optimal nutritional needs. Pt declined nutrition education. Current Diet [facility]/ [facility] / S.O Can Pertinent Medications colace, pepcid, iron, lasix, insulin aspart, levemir, culturelle, senna, VIT B complex w/ VIT C Pertinent Labs BG 179 H, POC BG 165 H, BUN 38 H, Triglycerides 191 H, H/H 10/6 L/31/3 L, LDL 68 L Nutritional Hx/Data Height 1.57 m Height (Calculated Centimeters) 157.5 Current Weight (lbs) 102.058 kg Weight (Calculated Kilograms) 102.1 Weight (Calculated Grams) 712565.3 Usual body Weight (lbs) 223 % Usual Body Weight 101 [place] Body Weight 110 lb, 50 kg. Adj IBW ( obesity): 139 lb, 63 kg % [place] Body Weight 204 Recent Weight Change No Weight Status Obese GI Symptoms GI Symptoms None Food Allergies No Usual diet at home Regular Skin Integrity/Comment: [place]: 13; diabetic ulcer L heel noted; redness to back/ perineal per RN Current %PO Fair (50-74%) Estimated Nutritional Goals BEE in Kcals: Adj wt of IBW Calories/Kcals/Kg 30-35 kcal/kg Adj IBW (wound healing) Kcals Calculated 4880-1392 kcal/day Protein: Adj wt of IBW Protein g/k.2-1.5 gm/kg Adj IBW (wound healing) Protein Calculated 76-95 gm/day Fluid: ml 3 L/day (30 ml/kg CBW for wound healing, dehydration) Nutritional Problem 1. Problem Problem Increased nutritional needs Etiology related to metabolic demands Signs/Symptoms: as evidenced by estimated nutritional requirements for wound healing. Malnutrition Related to Morbid Obesity Malnutrition related to morbid obesity Weight 200% of ideal wt Query Text:(Any 1 Criteria met) Malnutrition related to morbid obesity Yes Intervention/Recommendation Recommendations by RD Increase Calorie Intake Protein supplementation Comments * Recommend [facility] diet, Boost Glucose Control BID (oral supplement provides an additional 500 kcal/day and 28 gm protein/day) Expected Outcomes/Goals Expected Outcomes/Goals - Monitor appetite and PO intakes w/ goal of pt meeting at least 75% of estimated nutritional needs, labs trending WNL, normal GI function, and skin integrity/ wt maintenance within 3-5 days
--- NOTE | 2017-02-26 10:57 | General Progress Note ---
Subjective - Review of Systems Service Date: 02/26/17 Events since last encounter: consult dictated additional info: had left thigh stent placement about 6 months ago doppler study dajuan shows monophasic wave worms at midthig discussed with patient and family Plan: CT angiogram Objective - Results Result Diagrams: 02/25/17 05:02 02/25/17 05:02 Recent Labs: Laboratory Last Values WBC 6.0 Th/cmm (4.8-10.8) 02/25/17 05:02 RBC 3.48 Mil/cmm (3.80-5.20) L 02/25/17 05:02 Hgb 10.6 gm/dL (12-16) L 02/25/17 05:02 Hct 30.9 % (41.0-60) L 02/25/17 05:02 MCV 88.9 fl (81-100) 02/25/17 05:02 MCH 30.4 pg (27.0-31.0) 02/25/17 05:02 MCHC Differential 34.2 pg (28.0-36.0) 02/25/17 05:02 RDW 13.9 % (11.5-20.0) 02/25/17 05:02 Plt Count 224 Th/cmm (150-400) 02/25/17 05:02 MPV 8.4 fl 02/25/17 05:02 Neutrophils % 48.6 % (40.0-80.0) 02/25/17 05:02 Lymphocytes % 34.7 % (20.0-50.0) 02/25/17 05:02 Monocytes % 8.8 % (2.0-10.0) 02/25/17 05:02 Eosinophils % 7.4 % (0.0-5.0) H 02/25/17 05:02 Basophils % 0.5 % (0.0-2.0) 02/25/17 05:02 ESR 115 mm/hr (0-30) H 02/24/17 04:47 PT 10.0 SECONDS (9.5-11.5) 02/22/17 17:26 INR 0.96 (0.5-1.4) 02/22/17 17:26 PTT (Actin FS) 25.5 SECONDS (26.0-38.0) L 02/22/17 17:26 Sodium 140 mEq/L (136-145) 02/25/17 05:02 Potassium 3.8 mEq/L (3.5-5.1) 02/25/17 05:02 Chloride 106 mEq/L (98-107) 02/25/17 05:02 Carbon Dioxide 28.0 mEq/L (21.0-31.0) 02/25/17 05:02 Anion Gap 9.8 (7.0-16.0) 02/25/17 05:02 BUN 21 mg/dL (7-25) 02/25/17 05:02 Creatinine 0.8 mg/dL (0.6-1.2) 02/25/17 05:02 Est GFR ( Amer) TNP 02/25/17 05:02 Est GFR (Non-Af Amer) TNP 02/25/17 05:02 BUN/Creatinine Ratio 26.3 02/25/17 05:02 Glucose 195 mg/dL (70-105) H 02/25/17 05:02 POC Glucose 215 MG/DL (70 - 105) H 02/26/17 04:57 Hemoglobin A1c % 9.1 % (4.0-6.0) H 02/22/17 17:26 Whole Bld Lactic Acid 1.38 mmol/L (0.60-1.99) 02/22/17 19:45 Calcium 9.4 mg/dL (8.6-10.3) 02/25/17 05:02 Total Bilirubin 0.3 mg/dL (0.3-1.0) 02/22/17 17:26 AST 24 U/L (13-39) 02/22/17 17:26 ALT 21 U/L (7-52) 02/22/17 17:26 Alkaline Phosphatase 207 U/L (34-104) H 02/22/17 17:26 Creatine Kinase 70 U/L (30-223) 02/22/17 17:26 Troponin I 0.01 ng/mL (0.01-0.05) 02/22/17 17:26 C-Reactive Protein 1.3 mg/dL (0.0-0.9) H 02/24/17 04:47 B-Natriuretic Peptide 72.9 pg/mL (5.0-100.0) 02/23/17 05:30 Total Protein 8.4 gm/dL (6.0-8.3) H 02/22/17 17:26 Albumin 4.0 gm/dL (3.7-5.3) 02/22/17 17:26 Globulin 4.4 gm/dL 02/22/17 17:26 Albumin/Globulin Ratio 0.9 (1.0-1.8) L 02/22/17 17:26 Triglycerides 191 mg/dL (<150) H 02/23/17 05:30 Cholesterol 134 mg/dL (<200) 02/23/17 05:30 LDL Cholesterol Direct 68 mg/dL (75-193) L 02/23/17 05:30 HDL Cholesterol 36 mg/dL (23-92) 02/23/17 05:30 TSH 1.77 uIU/ml (0.34-5.60) 02/23/17 05:30 Urine Source CLEAN C 02/22/17 18:50 Urine Color YELLOW 02/22/17 18:50 Urine Clarity CLOUDY (CLEAR) H 02/22/17 18:50 Urine pH 5.5 (4.6 - 8.0) 02/22/17 18:50 Ur Specific [place] 1.015 (1.005-1.030) 02/22/17 18:50 Urine Protein TRACE mg/dL (NEGATIVE) 02/22/17 18:50 Urine Glucose (UA) >=1000 mg/dL (NEGATIVE) H 02/22/17 18:50 Urine Ketones NEGATIVE mg/dL (NEGATIVE) 02/22/17 18:50 Urine Blood MODERATE (NEGATIVE) H 02/22/17 18:50 Urine Nitrate POSITIVE (NEGATIVE) H 02/22/17 18:50 Urine Bilirubin NEGATIVE (NEGATIVE) 02/22/17 18:50 Urine Urobilinogen 0.2 E.U./dL (0.2 - 1.0) 02/22/17 18:50 Ur Leukocyte Esterase MODERATE (NEGATIVE) H 02/22/17 18:50 Urine RBC 10-25 /hpf (0-5) H 02/22/17 18:50 Urine WBC >100 /hpf (0-5) H 02/22/17 18:50 Ur Epithelial Cells MODERATE /lpf (FEW) 02/22/17 18:50 Urine Bacteria MANY /hpf (NONE SEEN) 02/22/17 18:50 - Physical Exam Vitals and I&O: Vital Signs Temp 97.3 F 02/26/17 08:00 Pulse 83 02/26/17 08:52 Resp 18 02/26/17 08:00 BP 171/81 02/26/17 08:52 Pulse Ox 94 02/26/17 08:00 Intake & Output 02/25/17 02/26/17 02/26/17 18:59 06:59 18:59 Intake Total 1000 110 Balance 1000 110 Weight (lbs) 102.784 kg 102.013 kg Intake: Intake, IV Amount 50 [id number] 1 gm In 50 Sodium Chloride 0.9% 50 ml @ 100 mls/hr IV Q24HR [facility] Rx#:[id number] Oral 1000 60 Other: # Voids 3 3 # Bowel Movements 1 Stool Characteristics Soft Formed Active Medications: Current Medications Acetaminophen (Tylenol) 325 mg PO Q4HR PRN PRN Reason: Pain (Mild) Stop: 04/23/17 20:52 Last Admin: 02/26/17 08:50 Dose: 325 mg Albuterol Sulfate (Albuterol 2.5mg/3ml Neb Ud) 2.5 mg HHN Q6HRT PRN PRN Reason: shortness of breath Stop: 04/24/17 18:59 Amlodipine Besylate (Norvasc) 5 mg PO DAILY [facility] Stop: 04/24/17 08:59 Last Admin: 02/26/17 08:52 Dose: 5 mg Aspirin (Aspirin Chewable) 81 mg PO DAILY [facility] Stop: 04/24/17 08:59 Last Admin: 02/26/17 08:51 Dose: 81 mg Citalopram Hydrobromide (Celexa) 40 mg PO HS [facility] Stop: 04/23/17 20:59 Last Admin: 02/25/17 20:38 Dose: 40 mg Clopidogrel Bisulfate (Plavix) 75 mg PO DAILY [facility] Stop: 04/24/17 08:59 Last Admin: 02/26/17 08:51 Dose: 75 mg Docusate Sodium (Colace) 100 mg PO DAILY [facility] Stop: 04/24/17 08:59 Last Admin: 02/26/17 08:51 Dose: 100 mg Famotidine (Pepcid) 20 mg PO DAILY [facility] Stop: 04/24/17 08:59 Last Admin: 02/26/17 08:50 Dose: 20 mg Ferrous Sulfate (Iron) 325 mg PO DAILY [facility] Stop: 04/24/17 08:59 Last Admin: 02/26/17 08:51 Dose: 325 mg Furosemide (Lasix) 40 mg PO DAILY [facility] Stop: 04/24/17 08:59 Last Admin: 02/26/17 08:51 Dose: 40 mg Ceftriaxone Sodium 1 gm/ (Sodium Chloride) 50 mls @ 100 mls/hr IV Q24HR [facility] Stop: 04/24/17 17:59 Last Infusion: 02/25/17 19:54 Dose: Infused Sodium Chloride (Nacl 0.9%) 1,000 mls @ 0 mls/hr IV .Q0M [facility]EE PRN Reason: TKO Stop: 04/25/17 17:44 Insulin Aspart (Novolog Insulin Sliding Scale) 0 units SUBQ ACHS [facility]EE PRN Reason: Protocol Stop: 04/23/17 20:59 Last Admin: 02/26/17 06:32 Dose: 4 units Insulin Detemir (Levemir Insulin) 32 units SUBQ QPM [facility] Stop: 04/23/17 21:29 Last Admin: 02/25/17 18:04 Dose: 32 units Lactobacillus Rhamnosus (Culturelle) 1 each PO DAILY [facility] Stop: 04/25/17 08:59 Last Admin: 02/26/17 08:52 Dose: 1 each Lisinopril (Zestril) 5 mg PO DAILY [facility] Stop: 04/24/17 08:59 Last Admin: 02/26/17 08:51 Dose: 5 mg Miscellaneous (Probiotic Screen) 1 ea MC PRN PRN PRN Reason: PROTOCOL Stop: 04/24/17 09:59 Oxycodone/Acetaminophen (Percocet 5/325mg Oral Tab) 1 tab PO Q6H PRN PRN Reason: Pain (Moderate) Stop: 04/27/17 09:26 Senna (Senna) 8.6 mg PO DAILY [facility] Stop: 04/24/17 08:59 Last Admin: 02/26/17 08:51 Dose: 8.6 mg Vitamin B Complex/Vitamin C (Vitamin B Complex W/C) 1 tab PO DAILY [facility] Stop: 04/24/17 08:59 Last Admin: 02/26/17 09:04 Dose: 1 tab Wound Care/Dressing Products (Therahoney) 1 appl TP DAILY [facility] Stop: 04/25/17 11:14 Last Admin: 02/25/17 14:08 Dose: 1 appl General: No acute distress HEENT: Atraumatic, PERRLA Neck: Thyromegaly Cardiovascular: Regular rate, Normal S1 Assessment/Plan - Problem List Patient Problems: All Active Problems H/O recurrent urinary tract infection (Acute) Z87.440 H/O type 2 diabetes mellitus (Acute) Z86.39 H/O: HTN (hypertension) (Acute) Z86.79 Nonhealing ulcer of heel (Acute) L97.409 r/o osteomyelitis (Acute) Nutritional Asmnt/Malnutr-PDOC - Dietary Evaluation Malnutrition Findings (Please click <Entered> for more info): Nutritional Asmnt/Malnutrition Start: 02/23/17 11: 00 Text: Status: Complete Freq: Document 02/23/17 14:16 TIFFANY (Rec: 02/23/17 14:25 MPENAROSY WEBB -[email or web address]) Nutritional Asmnt/Malnutrition Patient General Information Nutritional Screening Consult Diagnosis Diabetic ulcer/wound/ dehydration/DM uncontrolled Pertinent Medical Hx/Surgical Hx PMH: HTN, DM, CAD, CVA, TIA, dyslipidemia per MD notes Subjective Information Pt seen for Nutrition Consult (blood glucose level of 255). Pt seen resting in bed while eating lunch w/ son at bedside . Pt appeared over-nourished for ht, c/w anthropometrics and verified by pt. Per son, pt recently moved from a [facility], where she did not follow any diet restrictions. Pt reported "okay" appetite, and denied any difficulty chewing/swallowing. RN reported that pt has been eating 50-60% on average. RD encouraged pt to try to increase PO intakes for adequate nutrition for wound healing. Pt may benefit from Boost Glucose Control oral supplement. Pt was interested in strawberry-flavored oral supplement. RD to notify [facility] staff. RD communicated w/ RN regarding RD rec for Boost Glucose Control BID; RN paged attending MD; awaiting orders. Pt is not yet meeting optimal nutritional needs. Pt declined nutrition education. Current Diet Order/ [facility] / S.O Can Pertinent Medications colace, pepcid, iron, lasix, insulin aspart, levemir, culturelle, senna, VIT B complex w/ VIT C Pertinent Labs BG 179 H, POC BG 165 H, BUN 38 H, Triglycerides 191 H, H/H 10/6 L/31/3 L, LDL 68 L Nutritional Hx/Data Height 1.57 m Height (Calculated Centimeters) 157.5 Current Weight (lbs) 102.058 kg Weight (Calculated Kilograms) 102.1 Weight (Calculated Grams) 007781.3 Usual body Weight (lbs) 223 % Usual Body Weight 101 [place] Body Weight 110 lb, 50 kg. Adj IBW ( obesity): 139 lb, 63 kg % [place] Body Weight 204 Recent Weight Change No Weight Status Obese GI Symptoms GI Symptoms None Food Allergies No Usual diet at home Regular Skin Integrity/Comment: [place]: 13; diabetic ulcer L heel noted; redness to back/ perineal per RN Current %PO Fair (50-74%) Estimated Nutritional Goals BEE in Kcals: Adj wt of IBW Calories/Kcals/Kg 30-35 kcal/kg Adj IBW (wound healing) Kcals Calculated 9807-6357 kcal/day Protein: Adj wt of IBW Protein g/k.2-1.5 gm/kg Adj IBW (wound healing) Protein Calculated 76-95 gm/day Fluid: ml 3 L/day (30 ml/kg CBW for wound healing, dehydration) Nutritional Problem 1. Problem Problem Increased nutritional needs Etiology related to metabolic demands Signs/Symptoms: as evidenced by estimated nutritional requirements for wound healing. Malnutrition Related to Morbid Obesity Malnutrition related to morbid obesity Weight 200% of ideal wt Query Text:(Any 1 Criteria met) Malnutrition related to morbid obesity Yes Intervention/Recommendation Recommendations by RD Increase Calorie Intake Protein supplementation Comments * Recommend CCHO diet, Boost Glucose Control BID (oral supplement provides an additional 500 kcal/day and 28 gm protein/day) Expected Outcomes/Goals Expected Outcomes/Goals - Monitor appetite and PO intakes w/ goal of pt meeting at least 75% of estimated nutritional needs, labs trending WNL, normal GI function, and skin integrity/ wt maintenance within 3-5 days
[2017-02-26 11:09] LABS: % BASOPHILS 0.7 % (0.0-2.0); % EOSINOPHILS 3.4 % (0.0-5.0); % LYMPHOCYTES 20.5 % (20.0-50.0); % MONOCYTES 5.8 % (2.0-10.0); % NEUTROPHILS 69.6 % (40.0-80.0); HEMATOCRIT 32.5 % (41.0-60); HEMOGLOBIN 10.7 gm/dL (12-16); MEAN CELL VOLUME 88.5 fl (81-100); MEAN CORPUSCULAR HEMOGLOBIN 29.2 pg (27.0-31.0); MEAN PLATELET VOLUME 9.3 fl; NEUTROPHILE ABSOLUTE 5.5 Th/cmm (1.8-8.0); PLATELET COUNT 223 Th/cmm (150-400); RED BLOOD COUNT 3.68 Mil/cmm (3.80-5.20); RED CELL DISTRIBUTION WIDTH 13.8 % (11.5-20.0); WHITE BLOOD COUNT 8.1 Th/cmm (4.8-10.8)
[2017-02-26 11:27] LABS: ANION GAP 9.5 (7.0-16.0); BUN - UREA NITROGEN 21 mg/dL (7-25); BUN/CREATININE RATIO 23.3; CARBON DIOXIDE 27.6 mEq/L (21.0-31.0); CHLORIDE 101 mEq/L (98-107); CREATININE - SERUM 0.9 mg/dL (0.6-1.2); GLUCOSE 230 mg/dL (70-105); POTASSIUM SERUM 4.1 mEq/L (3.5-5.1); SODIUM SERUM 134 mEq/L (136-145)
[2017-02-26] MEDS ORDERED: IOHEXOL 300MG/ML 50 ML VIAL PO ONE (11:53)
--- NOTE | 2017-02-26 12:08 | Consultation ---
DATE OF CONSULTATION: 02/26/2017 REFERRING PHYSICIAN: Dr. Morillo. REASON FOR CONSULTATION: Infection in the left foot. Thank you for referring this patient to me. HISTORY OF PRESENT ILLNESS: This is a 72-year-old female who was ____ brought here from [place] as the son lives in this area. Apparently, she had had infection of the left foot about 6 months ago and was then advised to have below-knee amputation. She has refused that. On this admission, the patient was noted to have blood sugar of 247. Per information from family, she apparently does not stick to her diet. LABORATORY STUDIES: WBC is normal, hemoglobin slightly low at 10.6. BUN and creatinine are normal. The patient underwent arterial study of the lower extremity and this shows evidence of moderate to severe changes. There are monophasic waveforms in mid portion of the left superficial femoral artery with marked decrease in velocity. Bone scan shows osteomyelitis of the left heel and some of the toes of the left foot. PHYSICAL EXAMINATION: The lower extremities are warm. There is no pulse in the left and right popliteal arteries. No pedal pulses. Feet are, however, warm. There is a superficial ulceration in the left heel with no drainage. RECOMMENDATION: The patient does not want any kind of surgery at this point and would prefer IV antibiotics. ____, will recommend CT angiogram. JOB# [id number]
[2017-02-26] MEDS: Therahoney Gel 42.5gm Tube TP SCH (14:10)
[2017-02-26] MEDS: APAP/Oxycodone 5/325mg Oral Tab PO PRN ×2 (14:10→20:57)
[2017-02-26] MEDS: cefTRIAXone 1 GM in Sodium Chloride 0.9% 50 ML IV SCH (17:47)
[2017-02-26] MEDS: Insulin Detemir 100 units/mL 10mL Vial SUBQ SCH (17:47)
[2017-02-27 06:18] LABS: % BASOPHILS 0.7 % (0.0-2.0); % EOSINOPHILS 8.3 % (0.0-5.0); % MONOCYTES 7.6 % (2.0-10.0); % NEUTROPHILS 62.4 % (40.0-80.0); HEMATOCRIT 32.5 % (41.0-60); HEMOGLOBIN 10.9 gm/dL (12-16); MEAN CELL VOLUME 88.8 fl (81-100); MEAN CORPUSCULAR HEMOGLOBIN 29.6 pg (27.0-31.0); MEAN CORPUSCULAR HGB CONC 33.3 pg (28.0-36.0); MEAN PLATELET VOLUME 8.6 fl; NEUTROPHILE ABSOLUTE 5.2 Th/cmm (1.8-8.0); PLATELET COUNT 251 Th/cmm (150-400); RED BLOOD COUNT 3.66 Mil/cmm (3.80-5.20); RED CELL DISTRIBUTION WIDTH 13.9 % (11.5-20.0); WHITE BLOOD COUNT 8.3 Th/cmm (4.8-10.8)
[2017-02-27] MEDS: INSULIN ASPART SLIDING SCALE 100 UNITS/ML UNIT SUBQ SCH ×4 (06:32→21:14)
[2017-02-27 06:43] LABS: ANION GAP 11.2 (7.0-16.0); BUN - UREA NITROGEN 25 mg/dL (7-25); BUN/CREATININE RATIO 22.7; CALCIUM SERUM 9.5 mg/dL (8.6-10.3); CARBON DIOXIDE 27.3 mEq/L (21.0-31.0); CHLORIDE 102 mEq/L (98-107); CREATININE - SERUM 1.1 mg/dL (0.6-1.2); GLUCOSE 198 mg/dL (70-105); POTASSIUM SERUM 3.5 mEq/L (3.5-5.1); SODIUM SERUM 137 mEq/L (136-145)
[2017-02-27] MEDS: Ferrous Sulfate 325 MG TAB PO SCH (09:35)
[2017-02-27] MEDS: Aspirin 81mg Chewable Tab PO SCH (09:35)
[2017-02-27] MEDS: Lactobacillus Rhamnosus 10 Billion CFU Capsule PO SCH (09:35)
[2017-02-27] MEDS: Ascorbic Acid/Vit B Complex Tab PO SCH (09:36)
[2017-02-27] MEDS: APAP/Oxycodone 5/325mg Oral Tab PO PRN ×2 (09:53→19:44)
--- NOTE | 2017-02-27 11:56 | General Progress Note ---
Subjective - Review of Systems Service Date: 02/27/17 Events since last encounter: for CT angio today Objective - Results Result Diagrams: 02/27/17 05:08 02/27/17 05:08 Recent Labs: Laboratory Last Values WBC 8.3 Th/cmm (4.8-10.8) 02/27/17 05:08 RBC 3.66 Mil/cmm (3.80-5.20) L 02/27/17 05:08 Hgb 10.9 gm/dL (12-16) L 02/27/17 05:08 Hct 32.5 % (41.0-60) L 02/27/17 05:08 MCV 88.8 fl (81-100) 02/27/17 05:08 MCH 29.6 pg (27.0-31.0) 02/27/17 05:08 MCHC Differential 33.3 pg (28.0-36.0) 02/27/17 05:08 RDW 13.9 % (11.5-20.0) 02/27/17 05:08 Plt Count 251 Th/cmm (150-400) 02/27/17 05:08 MPV 8.6 fl 02/27/17 05:08 Neutrophils % 62.4 % (40.0-80.0) 02/27/17 05:08 Lymphocytes % 21.0 % (20.0-50.0) 02/27/17 05:08 Monocytes % 7.6 % (2.0-10.0) 02/27/17 05:08 Eosinophils % 8.3 % (0.0-5.0) H 02/27/17 05:08 Basophils % 0.7 % (0.0-2.0) 02/27/17 05:08 ESR 115 mm/hr (0-30) H 02/24/17 04:47 PT 10.0 SECONDS (9.5-11.5) 02/22/17 17:26 INR 0.96 (0.5-1.4) 02/22/17 17:26 PTT (Actin FS) 25.5 SECONDS (26.0-38.0) L 02/22/17 17:26 Sodium 137 mEq/L (136-145) 02/27/17 05:08 Potassium 3.5 mEq/L (3.5-5.1) 02/27/17 05:08 Chloride 102 mEq/L (98-107) 02/27/17 05:08 Carbon Dioxide 27.3 mEq/L (21.0-31.0) 02/27/17 05:08 Anion Gap 11.2 (7.0-16.0) 02/27/17 05:08 BUN 25 mg/dL (7-25) 02/27/17 05:08 Creatinine 1.1 mg/dL (0.6-1.2) 02/27/17 05:08 Est GFR ( Amer) TNP 02/27/17 05:08 Est GFR (Non-Af Amer) TNP 02/27/17 05:08 BUN/Creatinine Ratio 22.7 02/27/17 05:08 Glucose 198 mg/dL (70-105) H 02/27/17 05:08 POC Glucose 244 MG/DL (70 - 105) H 02/27/17 11:31 Hemoglobin A1c % 9.1 % (4.0-6.0) H 02/22/17 17:26 Whole Bld Lactic Acid 1.38 mmol/L (0.60-1.99) 02/22/17 19:45 Calcium 9.5 mg/dL (8.6-10.3) 02/27/17 05:08 Total Bilirubin 0.3 mg/dL (0.3-1.0) 02/22/17 17:26 AST 24 U/L (13-39) 02/22/17 17:26 ALT 21 U/L (7-52) 02/22/17 17:26 Alkaline Phosphatase 207 U/L (34-104) H 02/22/17 17:26 Creatine Kinase 70 U/L (30-223) 02/22/17 17:26 Troponin I 0.01 ng/mL (0.01-0.05) 02/22/17 17:26 C-Reactive Protein 1.3 mg/dL (0.0-0.9) H 02/24/17 04:47 B-Natriuretic Peptide 60.3 pg/mL (5.0-100.0) 02/26/17 11:00 Total Protein 8.4 gm/dL (6.0-8.3) H 02/22/17 17:26 Albumin 4.0 gm/dL (3.7-5.3) 02/22/17 17:26 Globulin 4.4 gm/dL 02/22/17 17:26 Albumin/Globulin Ratio 0.9 (1.0-1.8) L 02/22/17 17:26 Triglycerides 191 mg/dL (<150) H 02/23/17 05:30 Cholesterol 134 mg/dL (<200) 02/23/17 05:30 LDL Cholesterol Direct 68 mg/dL (75-193) L 02/23/17 05:30 HDL Cholesterol 36 mg/dL (23-92) 02/23/17 05:30 TSH 1.77 uIU/ml (0.34-5.60) 02/23/17 05:30 Urine Source CLEAN C 02/22/17 18:50 Urine Color YELLOW 02/22/17 18:50 Urine Clarity CLOUDY (CLEAR) H 02/22/17 18:50 Urine pH 5.5 (4.6 - 8.0) 02/22/17 18:50 Ur Specific [place] 1.015 (1.005-1.030) 02/22/17 18:50 Urine Protein TRACE mg/dL (NEGATIVE) 02/22/17 18:50 Urine Glucose (UA) >=1000 mg/dL (NEGATIVE) H 02/22/17 18:50 Urine Ketones NEGATIVE mg/dL (NEGATIVE) 02/22/17 18:50 Urine Blood MODERATE (NEGATIVE) H 02/22/17 18:50 Urine Nitrate POSITIVE (NEGATIVE) H 02/22/17 18:50 Urine Bilirubin NEGATIVE (NEGATIVE) 02/22/17 18:50 Urine Urobilinogen 0.2 E.U./dL (0.2 - 1.0) 02/22/17 18:50 Ur Leukocyte Esterase MODERATE (NEGATIVE) H 02/22/17 18:50 Urine RBC 10-25 /hpf (0-5) H 02/22/17 18:50 Urine WBC >100 /hpf (0-5) H 02/22/17 18:50 Ur Epithelial Cells MODERATE /lpf (FEW) 02/22/17 18:50 Urine Bacteria MANY /hpf (NONE SEEN) 02/22/17 18:50 - Physical Exam Vitals and I&O: Vital Signs Temp 99.0 F 02/27/17 08:00 Pulse 83 02/27/17 09:36 Resp 16 02/27/17 08:00 BP 128/52 02/27/17 09:36 Pulse Ox 95 02/27/17 08:00 Intake & Output 02/26/17 02/27/17 02/27/17 18:59 06:59 18:59 Intake Total 800 Balance 800 Weight (lbs) 102.013 kg 99.654 kg Intake: Oral 800 Other: # Voids 3 Active Medications: Current Medications Acetaminophen (Tylenol) 325 mg PO Q4HR PRN PRN Reason: Pain (Mild) Stop: 04/23/17 20:52 Last Admin: 02/26/17 08:50 Dose: 325 mg Albuterol Sulfate (Albuterol 2.5mg/3ml Neb Ud) 2.5 mg HHN Q6HRT PRN PRN Reason: shortness of breath Stop: 04/24/17 18:59 Amlodipine Besylate (Norvasc) 5 mg PO DAILY [facility] Stop: 04/24/17 08:59 Last Admin: 02/27/17 09:36 Dose: 5 mg Aspirin (Aspirin Chewable) 81 mg PO DAILY [facility] Stop: 04/24/17 08:59 Last Admin: 02/27/17 09:35 Dose: 81 mg Citalopram Hydrobromide (Celexa) 40 mg PO HS [facility] Stop: 04/23/17 20:59 Last Admin: 02/26/17 20:46 Dose: 40 mg Clopidogrel Bisulfate (Plavix) 75 mg PO DAILY [facility] Stop: 04/24/17 08:59 Last Admin: 02/27/17 09:35 Dose: 75 mg Docusate Sodium (Colace) 100 mg PO DAILY [facility] Stop: 04/24/17 08:59 Last Admin: 02/27/17 09:35 Dose: 100 mg Famotidine (Pepcid) 20 mg PO DAILY [facility] Stop: 04/24/17 08:59 Last Admin: 02/27/17 09:35 Dose: 20 mg Ferrous Sulfate (Iron) 325 mg PO DAILY [facility] Stop: 04/24/17 08:59 Last Admin: 02/27/17 09:35 Dose: 325 mg Furosemide (Lasix) 40 mg PO DAILY [facility] Stop: 04/24/17 08:59 Last Admin: 02/27/17 09:36 Dose: 40 mg Ceftriaxone Sodium 1 gm/ (Sodium Chloride) 50 mls @ 100 mls/hr IV Q24HR [facility]EE Stop: 04/24/17 17:59 Last Admin: 02/26/17 17:47 Dose: 100 mls/hr Sodium Chloride (Nacl 0.9%) 1,000 mls @ 0 mls/hr IV .Q0M VEE PRN Reason: TKO Stop: 04/25/17 17:44 Insulin Aspart (Novolog Insulin Sliding Scale) 0 units SUBQ ACHS VEE PRN Reason: Protocol Stop: 04/23/17 20:59 Last Admin: 02/27/17 06:32 Dose: 4 units Insulin Detemir (Levemir Insulin) 32 units SUBQ QPM [facility]EE Stop: 04/23/17 21:29 Last Admin: 02/26/17 17:47 Dose: 32 units Lactobacillus Rhamnosus (Culturelle) 1 each PO DAILY [facility] Stop: 04/25/17 08:59 Last Admin: 02/27/17 09:35 Dose: 1 each Lisinopril (Zestril) 5 mg PO DAILY [facility] Stop: 04/24/17 08:59 Last Admin: 02/27/17 09:35 Dose: 5 mg Miscellaneous (Probiotic Screen) 1 ea MC PRN PRN PRN Reason: PROTOCOL Stop: 04/24/17 09:59 Oxycodone/Acetaminophen (Percocet 5/325mg Oral Tab) 1 tab PO Q6H PRN PRN Reason: Pain (Moderate) Stop: 04/27/17 09:26 Last Admin: 02/27/17 09:53 Dose: 1 tab Senna (Senna) 8.6 mg PO DAILY [facility]EE Stop: 04/24/17 08:59 Last Admin: 02/27/17 09:35 Dose: 8.6 mg Vitamin B Complex/Vitamin C (Vitamin B Complex W/C) 1 tab PO DAILY [facility] Stop: 04/24/17 08:59 Last Admin: 02/27/17 09:36 Dose: 1 tab Wound Care/Dressing Products (Therahoney) 1 appl TP DAILY [facility] Stop: 04/25/17 11:14 Last Admin: 02/26/17 14:10 Dose: 1 appl General: No acute distress HEENT: Atraumatic, PERRLA Neck: Thyromegaly Cardiovascular: Regular rate, Normal S1 Assessment/Plan - Problem List Patient Problems: All Active Problems H/O recurrent urinary tract infection (Acute) Z87.440 H/O type 2 diabetes mellitus (Acute) Z86.39 H/O: HTN (hypertension) (Acute) Z86.79 Nonhealing ulcer of heel (Acute) L97.409 r/o osteomyelitis (Acute) Nutritional Asmnt/Malnutr-PDOC - Dietary Evaluation Malnutrition Findings (Please click <Entered> for more info): Nutritional Asmnt/Malnutrition Start: 02/23/17 11: 00 Text: Status: Complete Freq: Document 02/23/17 14:16 MPENAFULEAH (Rec: 02/23/17 14:25 MPENAFUERT JON -[email or web address]) Nutritional Asmnt/Malnutrition Patient General Information Nutritional Screening Consult Diagnosis Diabetic ulcer/wound/ dehydration/DM uncontrolled Pertinent Medical Hx/Surgical Hx PMH: HTN, DM, CAD, CVA, TIA, dyslipidemia per MD notes Subjective Information Pt seen for Nutrition Consult (blood glucose level of 255). Pt seen resting in bed while eating lunch w/ son at bedside . Pt appeared over-nourished for ht, c/w anthropometrics and verified by pt. Per son, pt recently moved from a [facility], where she did not follow any diet restrictions. Pt reported "okay" appetite, and denied any difficulty chewing/swallowing. RN reported that pt has been eating 50-60% on average. RD encouraged pt to try to increase PO intakes for adequate nutrition for wound healing. Pt may benefit from Boost Glucose Control oral supplement. Pt was interested in strawberry-flavored oral supplement. RD to notify [facility] staff. RD communicated w/ RN regarding RD rec for Boost Glucose Control BID; RN paged attending MD; awaiting orders. Pt is not yet meeting optimal nutritional needs. Pt declined nutrition education. Current Diet Order/ Nutrition Support [facility] Patient / S.O Can Pertinent Medications colace, pepcid, iron, lasix, insulin aspart, levemir, culturelle, senna, VIT B complex w/ VIT C Pertinent Labs BG 179 H, POC BG 165 H, BUN 38 H, Triglycerides 191 H, H/H 10/6 L/31/3 L, LDL 68 L Nutritional Hx/Data Height 1.57 m Height (Calculated Centimeters) 157.5 Current Weight (lbs) 102.058 kg Weight (Calculated Kilograms) 102.1 Weight (Calculated Grams) 293147.3 Usual body Weight (lbs) 223 % Usual Body Weight 101 [place] Body Weight 110 lb, 50 kg. Adj IBW ( obesity): 139 lb, 63 kg % [place] Body Weight 204 Recent Weight Change No Weight Status Obese GI Symptoms GI Symptoms None Food Allergies No Usual diet at home Regular Skin Integrity/Comment: [place]: 13; diabetic ulcer L heel noted; redness to back/ perineal per RN Current %PO Fair (50-74%) Estimated Nutritional Goals BEE in Kcals: Adj wt of IBW Calories/Kcals/Kg 30-35 kcal/kg Adj IBW (wound healing) Kcals Calculated 9144-1217 kcal/day Protein: Adj wt of IBW Protein g/k.2-1.5 gm/kg Adj IBW (wound healing) Protein Calculated 76-95 gm/day Fluid: ml 3 L/day (30 ml/kg CBW for wound healing, dehydration) Nutritional Problem 1. Problem Problem Increased nutritional needs Etiology related to metabolic demands Signs/Symptoms: as evidenced by estimated nutritional requirements for wound healing. Malnutrition Related to Morbid Obesity Malnutrition related to morbid obesity Weight 200% of ideal wt Query Text:(Any 1 Criteria met) Malnutrition related to morbid obesity Yes Intervention/Recommendation Recommendations by RD Increase Calorie Intake Protein supplementation Comments * Recommend CCHO diet, Boost Glucose Control BID (oral supplement provides an additional 500 kcal/day and 28 gm protein/day) Expected Outcomes/Goals Expected Outcomes/Goals - Monitor appetite and PO intakes w/ goal of pt meeting at least 75% of estimated nutritional needs, labs trending WNL, normal GI function, and skin integrity/ wt maintenance within 3-5 days
--- NOTE | 2017-02-27 13:13 | Diagnostic Imaging Report ---
CT angiogram of the lower abdominal aorta and lower extremities with intravenous contrast (CTA) HISTORY: Arterial occlusion, at the hepatic vascular disease, osteomyelitis left foot Total DLP equals 816 CTDI equals 11.0 Following administration of intravenous contrast, axial sections were obtained from the abdominal aorta at a level above the renal vasculature down through the ankles. The exam of the visualized abdominal aorta demonstrates diffuse calcified atherosclerotic plaque. The aorta retains a normal contour. No aneurysm identified. There is patency of the aortic lumen. Severe diffuse calcified atherosclerotic plaque is seen through the iliac arteries with generalized narrowing of the lumen. Severe diffuse calcified atherosclerotic plaque is seen through the right superficial femoral, popliteal, anterior tibial, and posterior tibial arteries. Due to the severe degree of calcification, contrast opacification is difficult to confirm below the knee. Greater than 90% narrowing of the lumen is seen through the majority of the right superficial femoral artery. Severe diffuse calcified atherosclerotic plaque is seen through the left superficial femoral, popliteal, posterior tibial, and anterior tibial arteries. Little appreciable contrast is seen through the majority of the left superficial femoral artery. Minimal opacification noted within the distal superficial femoral artery and popliteal arteries. Minimal opacification noted within the left posterior tibial artery. Severe calcified plaque limits evaluation of opacification of the left anterior tibial artery. IMPRESSION: 1. Severe diffuse calcified atherosclerotic plaque throughout the arterial systems of both legs. Greater than 90% occlusion seen through the majority of the right superficial femoral artery as noted above. There appears to be complete occlusion within the proximal and mid portions of the left superficial femoral artery. Limited opacification through the remainder of the arterial systems of the legs.
--- NOTE | 2017-02-27 13:24 | Diagnostic Imaging Report ---
CT scan left ankle/foot with intravenous contrast HISTORY: Swelling, osteomyelitis Total DLP equals 730 CTDI equals 19.6 Axial sections were obtained of the distal tibia and fibula down through the toes. There is generalized osteoporosis throughout the visualized bony structures. Narrowing of all of the intertarsal joint spaces. Narrowing of all of the metatarsal tarsal joint spaces. Evaluation of the phalanges limited due to flexion. Cortical irregularity noted along the posterior margin of the calcaneus. Slight loss of the cortical margin. Findings suggest both chronic and possible acute components. Osteomyelitis cannot be excluded. Increased density noted throughout the subcutaneous tissues adjacent to the posterior calcaneus. No discrete abnormal loculated fluid collections are seen. Severe calcified atherosclerotic plaque noted within the adjacent arteries. IMPRESSION: 1. Abnormal appearance along the posterior calcaneus that appear to represent both acute and chronic components. Osteomyelitis cannot be excluded. 2. Increased soft tissue density to the subcutaneous fatty tissues adjacent to the posterior calcaneus. Findings consistent with patient's history of cellulitis. No discrete abscess is seen. 3. Generalized osteoporosis throughout the bones of the ankle and foot 4. Atherosclerotic vascular changes
--- NOTE | 2017-02-27 14:08 | Internal Medicine Prog Note ---
Internal Medicine Subjective - Subjective Service Date: 02/27/17 Patient is:: awake Per staff patient has:: tolerating meds Internal Medicine Objective - Results Result Diagrams: 02/27/17 05:08 02/27/17 05:08 Recent Labs: Laboratory Last Values WBC 8.3 Th/cmm (4.8-10.8) 02/27/17 05:08 RBC 3.66 Mil/cmm (3.80-5.20) L 02/27/17 05:08 Hgb 10.9 gm/dL (12-16) L 02/27/17 05:08 Hct 32.5 % (41.0-60) L 02/27/17 05:08 MCV 88.8 fl (81-100) 02/27/17 05:08 MCH 29.6 pg (27.0-31.0) 02/27/17 05:08 MCHC Differential 33.3 pg (28.0-36.0) 02/27/17 05:08 RDW 13.9 % (11.5-20.0) 02/27/17 05:08 Plt Count 251 Th/cmm (150-400) 02/27/17 05:08 MPV 8.6 fl 02/27/17 05:08 Neutrophils % 62.4 % (40.0-80.0) 02/27/17 05:08 Lymphocytes % 21.0 % (20.0-50.0) 02/27/17 05:08 Monocytes % 7.6 % (2.0-10.0) 02/27/17 05:08 Eosinophils % 8.3 % (0.0-5.0) H 02/27/17 05:08 Basophils % 0.7 % (0.0-2.0) 02/27/17 05:08 ESR 115 mm/hr (0-30) H 02/24/17 04:47 PT 10.0 SECONDS (9.5-11.5) 02/22/17 17:26 INR 0.96 (0.5-1.4) 02/22/17 17:26 PTT (Actin FS) 25.5 SECONDS (26.0-38.0) L 02/22/17 17:26 Sodium 137 mEq/L (136-145) 02/27/17 05:08 Potassium 3.5 mEq/L (3.5-5.1) 02/27/17 05:08 Chloride 102 mEq/L (98-107) 02/27/17 05:08 Carbon Dioxide 27.3 mEq/L (21.0-31.0) 02/27/17 05:08 Anion Gap 11.2 (7.0-16.0) 02/27/17 05:08 BUN 25 mg/dL (7-25) 02/27/17 05:08 Creatinine 1.1 mg/dL (0.6-1.2) 02/27/17 05:08 Est GFR ( Amer) TNP 02/27/17 05:08 Est GFR (Non-Af Amer) TNP 02/27/17 05:08 BUN/Creatinine Ratio 22.7 02/27/17 05:08 Glucose 198 mg/dL (70-105) H 02/27/17 05:08 POC Glucose 244 MG/DL (70 - 105) H 02/27/17 11:31 Hemoglobin A1c % 9.1 % (4.0-6.0) H 02/22/17 17:26 Whole Bld Lactic Acid 1.38 mmol/L (0.60-1.99) 02/22/17 19:45 Calcium 9.5 mg/dL (8.6-10.3) 02/27/17 05:08 Total Bilirubin 0.3 mg/dL (0.3-1.0) 02/22/17 17:26 AST 24 U/L (13-39) 02/22/17 17:26 ALT 21 U/L (7-52) 02/22/17 17:26 Alkaline Phosphatase 207 U/L (34-104) H 02/22/17 17:26 Creatine Kinase 70 U/L (30-223) 02/22/17 17:26 Troponin I 0.01 ng/mL (0.01-0.05) 02/22/17 17:26 C-Reactive Protein 1.3 mg/dL (0.0-0.9) H 02/24/17 04:47 B-Natriuretic Peptide 60.3 pg/mL (5.0-100.0) 02/26/17 11:00 Total Protein 8.4 gm/dL (6.0-8.3) H 02/22/17 17:26 Albumin 4.0 gm/dL (3.7-5.3) 02/22/17 17:26 Globulin 4.4 gm/dL 02/22/17 17:26 Albumin/Globulin Ratio 0.9 (1.0-1.8) L 02/22/17 17:26 Triglycerides 191 mg/dL (<150) H 02/23/17 05:30 Cholesterol 134 mg/dL (<200) 02/23/17 05:30 LDL Cholesterol Direct 68 mg/dL (75-193) L 02/23/17 05:30 HDL Cholesterol 36 mg/dL (23-92) 02/23/17 05:30 TSH 1.77 uIU/ml (0.34-5.60) 02/23/17 05:30 Urine Source CLEAN C 02/22/17 18:50 Urine Color YELLOW 02/22/17 18:50 Urine Clarity CLOUDY (CLEAR) H 02/22/17 18:50 Urine pH 5.5 (4.6 - 8.0) 02/22/17 18:50 Ur Specific [place] 1.015 (1.005-1.030) 02/22/17 18:50 Urine Protein TRACE mg/dL (NEGATIVE) 02/22/17 18:50 Urine Glucose (UA) >=1000 mg/dL (NEGATIVE) H 02/22/17 18:50 Urine Ketones NEGATIVE mg/dL (NEGATIVE) 02/22/17 18:50 Urine Blood MODERATE (NEGATIVE) H 02/22/17 18:50 Urine Nitrate POSITIVE (NEGATIVE) H 02/22/17 18:50 Urine Bilirubin NEGATIVE (NEGATIVE) 02/22/17 18:50 Urine Urobilinogen 0.2 E.U./dL (0.2 - 1.0) 02/22/17 18:50 Ur Leukocyte Esterase MODERATE (NEGATIVE) H 02/22/17 18:50 Urine RBC 10-25 /hpf (0-5) H 02/22/17 18:50 Urine WBC >100 /hpf (0-5) H 02/22/17 18:50 Ur Epithelial Cells MODERATE /lpf (FEW) 02/22/17 18:50 Urine Bacteria MANY /hpf (NONE SEEN) 02/22/17 18:50 - Physical Exam Vitals and I&O: Vital Signs Temp 99.0 F 02/27/17 08:00 Pulse 83 02/27/17 09:36 Resp 16 02/27/17 08:00 BP 128/52 02/27/17 09:36 Pulse Ox 95 02/27/17 08:00 Intake & Output 02/26/17 02/27/17 02/27/17 18:59 06:59 18:59 Intake Total 800 Balance 800 Weight (lbs) 224 lb 14.4 oz 219 lb 11.2 oz Intake: Oral 800 Other: # Voids 3 Active Medications: Current Medications Acetaminophen (Tylenol) 325 mg PO Q4HR PRN PRN Reason: Pain (Mild) Stop: 04/23/17 20:52 Last Admin: 02/26/17 08:50 Dose: 325 mg Albuterol Sulfate (Albuterol 2.5mg/3ml Neb Ud) 2.5 mg HHN Q6HRT PRN PRN Reason: shortness of breath Stop: 04/24/17 18:59 Amlodipine Besylate (Norvasc) 5 mg PO DAILY VEE Stop: 04/24/17 08:59 Last Admin: 02/27/17 09:36 Dose: 5 mg Aspirin (Aspirin Chewable) 81 mg PO DAILY VEE Stop: 04/24/17 08:59 Last Admin: 02/27/17 09:35 Dose: 81 mg Citalopram Hydrobromide (Celexa) 40 mg PO HS [facility] Stop: 04/23/17 20:59 Last Admin: 02/26/17 20:46 Dose: 40 mg Clopidogrel Bisulfate (Plavix) 75 mg PO DAILY VEE Stop: 04/24/17 08:59 Last Admin: 02/27/17 09:35 Dose: 75 mg Docusate Sodium (Colace) 100 mg PO DAILY VEE Stop: 04/24/17 08:59 Last Admin: 02/27/17 09:35 Dose: 100 mg Famotidine (Pepcid) 20 mg PO DAILY VEE Stop: 04/24/17 08:59 Last Admin: 02/27/17 09:35 Dose: 20 mg Ferrous Sulfate (Iron) 325 mg PO DAILY VEE Stop: 04/24/17 08:59 Last Admin: 02/27/17 09:35 Dose: 325 mg Furosemide (Lasix) 40 mg PO DAILY VEE Stop: 04/24/17 08:59 Last Admin: 02/27/17 09:36 Dose: 40 mg Ceftriaxone Sodium 1 gm/ (Sodium Chloride) 50 mls @ 100 mls/hr IV Q24HR VEE Stop: 04/24/17 17:59 Last Admin: 02/26/17 17:47 Dose: 100 mls/hr Sodium Chloride (Nacl 0.9%) 1,000 mls @ 0 mls/hr IV .Q0M VEE PRN Reason: TKO Stop: 04/25/17 17:44 Insulin Aspart (Novolog Insulin Sliding Scale) 0 units SUBQ ACHS VEE PRN Reason: Protocol Stop: 04/23/17 20:59 Last Admin: 02/27/17 12:18 Dose: 4 units Insulin Detemir (Levemir Insulin) 32 units SUBQ QPM VEE Stop: 04/23/17 21:29 Last Admin: 02/26/17 17:47 Dose: 32 units Lactobacillus Rhamnosus (Culturelle) 1 each PO DAILY VEE Stop: 04/25/17 08:59 Last Admin: 02/27/17 09:35 Dose: 1 each Lisinopril (Zestril) 5 mg PO DAILY VEE Stop: 04/24/17 08:59 Last Admin: 02/27/17 09:35 Dose: 5 mg Miscellaneous (Probiotic Screen) 1 ea MC PRN PRN PRN Reason: PROTOCOL Stop: 04/24/17 09:59 Oxycodone/Acetaminophen (Percocet 5/325mg Oral Tab) 1 tab PO Q6H PRN PRN Reason: Pain (Moderate) Stop: 04/27/17 09:26 Last Admin: 02/27/17 09:53 Dose: 1 tab Senna (Senna) 8.6 mg PO DAILY VEE Stop: 04/24/17 08:59 Last Admin: 02/27/17 09:35 Dose: 8.6 mg Vitamin B Complex/Vitamin C (Vitamin B Complex W/C) 1 tab PO DAILY [facility] Stop: 04/24/17 08:59 Last Admin: 02/27/17 09:36 Dose: 1 tab Wound Care/Dressing Products (Therahoney) 1 appl TP DAILY [facility] Stop: 04/25/17 11:14 Last Admin: 02/26/17 14:10 Dose: 1 appl General: weak, alert HEENT: NC/AT, PERRLA Neck: Supple Lungs: CTAB Cardiovascular: RRR, Normal S1, Normal S2, without murmur Abdomen: soft, non-distended, positive bowel sound Extremities: excoriation Internal Medicine Assmt/Plan - Assessment Assessment: H/O recurrent urinary tract infection (Acute) Z87.440 H/O type 2 diabetes mellitus (Acute) Z86.39 H/O: HTN (hypertension) (Acute) Z86.79 Nonhealing ulcer of heel (Acute) L97.409 r/o osteomyelitis (Acute) - Plan Plan: continue with wound care iv antibiotics as per id ivf for hydration continue current plan of care Nutritional Asmnt/Malnutr-PDOC - Dietary Evaluation Malnutrition Findings (Please click <Entered> for more info): Nutritional Asmnt/Malnutrition Start: 02/23/17 11: 00 Text: Status: Complete Freq: Document 02/23/17 14:16 TIFFANY (Rec: 02/23/17 14:25 MPENAFULEAH WEBB -[email or web address]) Nutritional Asmnt/Malnutrition Patient General Information Nutritional Screening Consult Diagnosis Diabetic ulcer/wound/ dehydration/DM uncontrolled Pertinent Medical Hx/Surgical Hx PMH: HTN, DM, CAD, CVA, TIA, dyslipidemia per MD notes Subjective Information Pt seen for Nutrition Consult (blood glucose level of 255). Pt seen resting in bed while eating lunch w/ son at bedside . Pt appeared over-nourished for ht, c/w anthropometrics and verified by pt. Per son, pt recently moved from a [facility], where she did not follow any diet restrictions. Pt reported "okay" appetite, and denied any difficulty chewing/swallowing. RN reported that pt has been eating 50-60% on average. RD encouraged pt to try to increase PO intakes for adequate nutrition for wound healing. Pt may benefit from Boost Glucose Control oral supplement. Pt was interested in strawberry-flavored oral supplement. RD to notify [facility] staff. RD communicated w/ RN regarding RD rec for Boost Glucose Control BID; RN paged attending MD; awaiting orders. Pt is not yet meeting optimal nutritional needs. Pt declined nutrition education. Current Diet Order/ Nutrition Support [facility] Patient / S.O Can Pertinent Medications colace, pepcid, iron, lasix, insulin aspart, levemir, culturelle, senna, VIT B complex w/ VIT C Pertinent Labs BG 179 H, POC BG 165 H, BUN 38 H, Triglycerides 191 H, H/H 10/6 L/31/3 L, LDL 68 L Nutritional Hx/Data Height 5 ft 2 in Height (Calculated Centimeters) 157.5 Current Weight (lbs) 225 lb Weight (Calculated Kilograms) 102.1 Weight (Calculated Grams) 378893.3 Usual body Weight (lbs) 223 % Usual Body Weight 101 [place] Body Weight 110 lb, 50 kg. Adj IBW ( obesity): 139 lb, 63 kg % [place] Body Weight 204 Recent Weight Change No Weight Status Obese GI Symptoms GI Symptoms None Food Allergies No Usual diet at home Regular Skin Integrity/Comment: [place]: 13; diabetic ulcer L heel noted; redness to back/ perineal per RN Current %PO Fair (50-74%) Estimated Nutritional Goals BEE in Kcals: Adj wt of IBW Calories/Kcals/Kg 30-35 kcal/kg Adj IBW (wound healing) Kcals Calculated 4915-3093 kcal/day Protein: Adj wt of IBW Protein g/k.2-1.5 gm/kg Adj IBW (wound healing) Protein Calculated 76-95 gm/day Fluid: ml 3 L/day (30 ml/kg CBW for wound healing, dehydration) Nutritional Problem 1. Problem Problem Increased nutritional needs Etiology related to metabolic demands Signs/Symptoms: as evidenced by estimated nutritional requirements for wound healing. Malnutrition Related to Morbid Obesity Malnutrition related to morbid obesity Weight 200% of ideal wt Query Text:(Any 1 Criteria met) Malnutrition related to morbid obesity Yes Intervention/Recommendation Recommendations by RD Increase Calorie Intake Protein supplementation Comments * Recommend CCHO diet, Boost Glucose Control BID (oral supplement provides an additional 500 kcal/day and 28 gm protein/day) Expected Outcomes/Goals Expected Outcomes/Goals - Monitor appetite and PO intakes w/ goal of pt meeting at least 75% of estimated nutritional needs, labs trending WNL, normal GI function, and skin integrity/ wt maintenance within 3-5 days
[2017-02-27] MEDS: Therahoney Gel 42.5gm Tube TP SCH (15:04)
[2017-02-27] MEDS: cefTRIAXone 1 GM in Sodium Chloride 0.9% 50 ML IV SCH (17:37)
[2017-02-27] MEDS: Insulin Detemir 100 units/mL 10mL Vial SUBQ SCH (17:40)
[2017-02-28] MEDS: APAP/Oxycodone 5/325mg Oral Tab PO PRN ×2 (02:07→12:30)
[2017-02-28 06:01] LABS: % BASOPHILS 0.3 % (0.0-2.0); % EOSINOPHILS 5.2 % (0.0-5.0); % LYMPHOCYTES 7.8 % (20.0-50.0); % MONOCYTES 5.7 % (2.0-10.0); HEMATOCRIT 33.3 % (41.0-60); HEMOGLOBIN 11.3 gm/dL (12-16); MEAN CELL VOLUME 88.1 fl (81-100); MEAN CORPUSCULAR HEMOGLOBIN 29.8 pg (27.0-31.0); MEAN CORPUSCULAR HGB CONC 33.9 pg (28.0-36.0); MEAN PLATELET VOLUME 8.8 fl; NEUTROPHILE ABSOLUTE 7.5 Th/cmm (1.8-8.0); PLATELET COUNT 219 Th/cmm (150-400); RED BLOOD COUNT 3.78 Mil/cmm (3.80-5.20); RED CELL DISTRIBUTION WIDTH 13.7 % (11.5-20.0); WHITE BLOOD COUNT 9.2 Th/cmm (4.8-10.8)
[2017-02-28 06:10] LABS: INR 1.05 (0.5-1.4); PROTHROMBIN TIME (TEST) 10.9 SECONDS (9.5-11.5)
[2017-02-28 06:12] LABS: ANION GAP 10.1 (7.0-16.0); BUN - UREA NITROGEN 28 mg/dL (7-25); BUN/CREATININE RATIO 21.5; CALCIUM SERUM 9.5 mg/dL (8.6-10.3); CARBON DIOXIDE 27.5 mEq/L (21.0-31.0); CHLORIDE 102 mEq/L (98-107); CREATININE - SERUM 1.3 mg/dL (0.6-1.2); GLUCOSE 226 mg/dL (70-105); POTASSIUM SERUM 3.6 mEq/L (3.5-5.1); SODIUM SERUM 136 mEq/L (136-145)
[2017-02-28] MEDS: INSULIN ASPART SLIDING SCALE 100 UNITS/ML UNIT SUBQ SCH ×4 (07:11→21:23)
[2017-02-28] MEDS: Morphine Sulfate 2 mg/mL 1mL Syr IVP PRN ×4 (07:11→21:23)
[2017-02-28] MEDS ORDERED: Bupivacaine 0.75% 10 mL Vial INJ ONE (07:15)
[2017-02-28] MEDS ORDERED: Thrombin, Bovine 5,000 IU Vial TP ONE (07:16)
[2017-02-28] MEDS ORDERED: Gelatin Sponge 100cm Spg TP ONE (08:37)
[2017-02-28] MEDS ORDERED: Triple Antibiotic 0.94 gm Pkt TP ONE (08:53)
--- NOTE | 2017-02-28 09:56 | Operative Report ---
DATE OF SURGERY: 02/28/2017 PREOPERATIVE DIAGNOSES: 1. 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 2. Osteomyelitis, left calcaneus. 3. Diabetes mellitus with poor control. 4. Hypertension. 5. Obesity. POSTOPERATIVE DIAGNOSES: 1. 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 2. Osteomyelitis, left calcaneus. 3. Diabetes mellitus with poor control. 4. Hypertension. 5. Obesity. OPERATION: 1. Exploration of the left popliteal artery. 2. Debridement of left heel, excisional, stage 2 size 3 x 3 cm. ESTIMATED BLOOD LOSS: 10 mL. SURGEON: Farrah Coleman M.D. ANESTHESIA: Spinal. ANESTHESIOLOGIST: Efrain Morris M.D. OPERATIVE FINDINGS: The popliteal artery was heavily calcified and unsuitable for bypass. The left heel ulcer was debrided. ESTIMATED BLOOD LOSS: 10 mL. DESCRIPTION OF PROCEDURE: The patient was given spinal anesthesia. The left lower extremity was prepped with Betadine and draped in appropriate manner. The left leg was flexed and an incision was made below the knee in the medial aspect. This incision was deepened all the way down to the posterior aspect of the tibia and the popliteal vessels were identified. This was found to be heavily calcified and unsuitable for bypass. The incision was closed with application of Gelfoam and thrombin for the oozing. The fascia was closed with 3-0 Vicryl, and the skin with subcuticular suture of 0 Vicryl. Sterile dressing was placed over this. The left heel was debrided sharply with a knife following which antibiotic ointment and Optifoam will be applied. JOB# [id number]
[2017-02-28] MEDS ORDERED: Meperidine 25 mg/mL 1mL Syr IVP PRN (10:04)
[2017-02-28] MEDS: Aspirin 81mg Chewable Tab PO SCH (10:12)
[2017-02-28] MEDS: Ascorbic Acid/Vit B Complex Tab PO SCH (10:12)
[2017-02-28] MEDS: Lactobacillus Rhamnosus 10 Billion CFU Capsule PO SCH (10:13)
[2017-02-28] MEDS: Ferrous Sulfate 325 MG TAB PO SCH (10:13)
[2017-02-28] MEDS: Therahoney Gel 42.5gm Tube TP SCH (10:14)
[2017-02-28] MEDS ORDERED: Lactated Ringer 1,000 ML IV SCH (10:15)
--- NOTE | 2017-02-28 11:17 | Infectious Disease Prog Note ---
Infectious Disease Subjective - Review of Systems Service Date: 02/28/17 Subjective: Comfortable, not in distress. Infectious Disease Objective - Results Result Diagrams: 02/28/17 05:30 02/28/17 05:30 Recent Labs: Laboratory Last Values WBC 9.2 Th/cmm (4.8-10.8) 02/28/17 05:30 RBC 3.78 Mil/cmm (3.80-5.20) L 02/28/17 05:30 Hgb 11.3 gm/dL (12-16) L 02/28/17 05:30 Hct 33.3 % (41.0-60) L 02/28/17 05:30 MCV 88.1 fl (81-100) 02/28/17 05:30 MCH 29.8 pg (27.0-31.0) 02/28/17 05:30 MCHC Differential 33.9 pg (28.0-36.0) 02/28/17 05:30 RDW 13.7 % (11.5-20.0) 02/28/17 05:30 Plt Count 219 Th/cmm (150-400) 02/28/17 05:30 MPV 8.8 fl 02/28/17 05:30 Neutrophils % 81.0 % (40.0-80.0) H 02/28/17 05:30 Lymphocytes % 7.8 % (20.0-50.0) L 02/28/17 05:30 Monocytes % 5.7 % (2.0-10.0) 02/28/17 05:30 Eosinophils % 5.2 % (0.0-5.0) H 02/28/17 05:30 Basophils % 0.3 % (0.0-2.0) 02/28/17 05:30 ESR 115 mm/hr (0-30) H 02/24/17 04:47 PT 10.9 SECONDS (9.5-11.5) 02/28/17 05:30 INR 1.05 (0.5-1.4) 02/28/17 05:30 PTT (Actin FS) 24.7 SECONDS (26.0-38.0) L 02/28/17 05:30 Sodium 136 mEq/L (136-145) 02/28/17 05:30 Potassium 3.6 mEq/L (3.5-5.1) 02/28/17 05:30 Chloride 102 mEq/L (98-107) 02/28/17 05:30 Carbon Dioxide 27.5 mEq/L (21.0-31.0) 02/28/17 05:30 Anion Gap 10.1 (7.0-16.0) 02/28/17 05:30 BUN 28 mg/dL (7-25) H 02/28/17 05:30 Creatinine 1.3 mg/dL (0.6-1.2) H 02/28/17 05:30 Est GFR ( Amer) TNP 02/28/17 05:30 Est GFR (Non-Af Amer) TNP 02/28/17 05:30 BUN/Creatinine Ratio 21.5 02/28/17 05:30 Glucose 226 mg/dL (70-105) H 02/28/17 05:30 POC Glucose 225 MG/DL (70 - 105) H 02/28/17 06:38 Hemoglobin A1c % 9.1 % (4.0-6.0) H 02/22/17 17:26 Whole Bld Lactic Acid 1.38 mmol/L (0.60-1.99) 02/22/17 19:45 Calcium 9.5 mg/dL (8.6-10.3) 02/28/17 05:30 Total Bilirubin 0.3 mg/dL (0.3-1.0) 02/22/17 17:26 AST 24 U/L (13-39) 02/22/17 17:26 ALT 21 U/L (7-52) 02/22/17 17:26 Alkaline Phosphatase 207 U/L (34-104) H 02/22/17 17:26 Creatine Kinase 70 U/L (30-223) 02/22/17 17:26 Troponin I 0.01 ng/mL (0.01-0.05) 02/22/17 17:26 C-Reactive Protein 1.3 mg/dL (0.0-0.9) H 02/24/17 04:47 B-Natriuretic Peptide 60.3 pg/mL (5.0-100.0) 02/26/17 11:00 Total Protein 8.4 gm/dL (6.0-8.3) H 02/22/17 17:26 Albumin 4.0 gm/dL (3.7-5.3) 02/22/17 17:26 Globulin 4.4 gm/dL 02/22/17 17:26 Albumin/Globulin Ratio 0.9 (1.0-1.8) L 02/22/17 17:26 Triglycerides 191 mg/dL (<150) H 02/23/17 05:30 Cholesterol 134 mg/dL (<200) 02/23/17 05:30 LDL Cholesterol Direct 68 mg/dL (75-193) L 02/23/17 05:30 HDL Cholesterol 36 mg/dL (23-92) 02/23/17 05:30 TSH 1.77 uIU/ml (0.34-5.60) 02/23/17 05:30 Urine Source CLEAN C 02/22/17 18:50 Urine Color YELLOW 02/22/17 18:50 Urine Clarity CLOUDY (CLEAR) H 02/22/17 18:50 Urine pH 5.5 (4.6 - 8.0) 02/22/17 18:50 Ur Specific [place] 1.015 (1.005-1.030) 02/22/17 18:50 Urine Protein TRACE mg/dL (NEGATIVE) 02/22/17 18:50 Urine Glucose (UA) >=1000 mg/dL (NEGATIVE) H 02/22/17 18:50 Urine Ketones NEGATIVE mg/dL (NEGATIVE) 02/22/17 18:50 Urine Blood MODERATE (NEGATIVE) H 02/22/17 18:50 Urine Nitrate POSITIVE (NEGATIVE) H 02/22/17 18:50 Urine Bilirubin NEGATIVE (NEGATIVE) 02/22/17 18:50 Urine Urobilinogen 0.2 E.U./dL (0.2 - 1.0) 02/22/17 18:50 Ur Leukocyte Esterase MODERATE (NEGATIVE) H 02/22/17 18:50 Urine RBC 10-25 /hpf (0-5) H 02/22/17 18:50 Urine WBC >100 /hpf (0-5) H 02/22/17 18:50 Ur Epithelial Cells MODERATE /lpf (FEW) 02/22/17 18:50 Urine Bacteria MANY /hpf (NONE SEEN) 02/22/17 18:50 - Physical Exam Vitals and I&O: Vital Signs Temp 97.7 F 02/28/17 04:00 Pulse 99 02/28/17 04:00 Resp 18 02/28/17 04:00 BP 144/74 02/28/17 04:00 Pulse Ox 97 02/28/17 04:00 Intake & Output 02/27/17 02/28/17 02/28/17 18:59 06:59 18:59 Intake Total 720 200 Balance 720 200 Weight (lbs) 99.654 kg 99.337 kg Intake: Oral 720 200 Other: # Voids 3 3 # Bowel Movements 1 Active Medications: Current Medications Acetaminophen (Tylenol) 325 mg PO Q4HR PRN PRN Reason: Pain (Mild) Stop: 04/23/17 20:52 Last Admin: 02/26/17 08:50 Dose: 325 mg Albuterol Sulfate (Albuterol 2.5mg/3ml Neb Ud) 2.5 mg HHN Q6HRT PRN PRN Reason: shortness of breath Stop: 04/24/17 18:59 Amlodipine Besylate (Norvasc) 5 mg PO DAILY REPLACED BY [facility] Stop: 04/24/17 08:59 Last Admin: 02/28/17 10:12 Dose: Not Given Aspirin (Aspirin Chewable) 81 mg PO DAILY REPLACED BY [facility] Stop: 04/24/17 08:59 Last Admin: 02/28/17 10:12 Dose: Not Given Citalopram Hydrobromide (Celexa) 40 mg PO HS REPLACED BY [facility] Stop: 04/23/17 20:59 Last Admin: 02/27/17 22:19 Dose: 40 mg Clopidogrel Bisulfate (Plavix) 75 mg PO DAILY REPLACED BY [facility] Stop: 04/24/17 08:59 Last Admin: 02/28/17 10:12 Dose: Not Given Docusate Sodium (Colace) 100 mg PO DAILY REPLACED BY [facility] Stop: 04/24/17 08:59 Last Admin: 02/28/17 10:13 Dose: Not Given Famotidine (Pepcid) 20 mg PO DAILY REPLACED BY [facility] Stop: 04/24/17 08:59 Last Admin: 02/28/17 10:13 Dose: Not Given Ferrous Sulfate (Iron) 325 mg PO DAILY REPLACED BY [facility] Stop: 04/24/17 08:59 Last Admin: 02/28/17 10:13 Dose: Not Given Furosemide (Lasix) 40 mg PO DAILY REPLACED BY [facility] Stop: 04/24/17 08:59 Last Admin: 02/28/17 10:13 Dose: Not Given Ceftriaxone Sodium 1 gm/ (Sodium Chloride) 50 mls @ 100 mls/hr IV Q24HR VEE Stop: 04/24/17 17:59 Last Admin: 02/27/17 17:37 Dose: 100 mls/hr Sodium Chloride (Nacl 0.9%) 1,000 mls @ 0 mls/hr IV .Q0M VEE PRN Reason: TKO Stop: 04/25/17 17:44 Last Admin: 02/27/17 19:52 Dose: 10 mls/hr Insulin Aspart (Novolog Insulin Sliding Scale) 0 units SUBQ ACHS VEE PRN Reason: Protocol Stop: 04/23/17 20:59 Last Admin: 02/28/17 07:11 Dose: Not Given Insulin Detemir (Levemir Insulin) 32 units SUBQ QPM VEE Stop: 04/23/17 21:29 Last Admin: 02/27/17 17:40 Dose: 32 units Lactobacillus Rhamnosus (Culturelle) 1 each PO DAILY REPLACED BY [facility] Stop: 04/25/17 08:59 Last Admin: 02/28/17 10:13 Dose: Not Given Lisinopril (Zestril) 5 mg PO DAILY REPLACED BY [facility] Stop: 04/24/17 08:59 Last Admin: 02/28/17 10:13 Dose: Not Given Miscellaneous (Probiotic Screen) 1 ea MC PRN PRN PRN Reason: PROTOCOL Stop: 04/24/17 09:59 Morphine Sulfate (Morphine) 1 mg IVP Q4HR PRN PRN Reason: Pain (Severe) Stop: 04/29/17 06:54 Last Admin: 02/28/17 07:11 Dose: 1 mg Oxycodone/Acetaminophen (Percocet 5/325mg Oral Tab) 1 tab PO Q6H PRN PRN Reason: Pain (Moderate) Stop: 04/27/17 09:26 Last Admin: 02/28/17 02:07 Dose: 1 tab Senna (Senna) 8.6 mg PO DAILY REPLACED BY [facility] Stop: 04/24/17 08:59 Last Admin: 02/28/17 10:13 Dose: Not Given Vitamin B Complex/Vitamin C (Vitamin B Complex W/C) 1 tab PO DAILY REPLACED BY [facility] Stop: 04/24/17 08:59 Last Admin: 02/28/17 10:12 Dose: Not Given Wound Care/Dressing Products (Therahoney) 1 appl TP DAILY [facility]EE Stop: 04/25/17 11:14 Last Admin: 02/28/17 10:14 Dose: Not Given General: no acute distress, well developed, well nourished HEENT: atraumatic, normocephalic, PERRLA, EOMI Neck: supple, no thyromegaly Cardiovascular: S1S2, regular Lungs: clear to auscultation bilaterally, clear to percussion Abdomen: soft, bowel sounds, no tender, no distended, no mass, no rebound, no hepatomegaly, no splenomegaly, no ascites, no guarding, no drain, no obese, no catheter Extremities: no cyanosis, no clubbing, no edema Neurological: awake, alert, oriented Skin: other (eft heel wound.) - Procedures Procedures: Procedures Procedure Code Date JANINA SUBQ TISSUE 20 SQ CM/< 37458 02/22/17 EXCISION OF L FOOT SUBCU/FASCIA, OPEN APPROACH [id number] 02/22/17 Infectious Disease Assmt/Plan - Problem List Patient Problems: All Active Problems H/O recurrent urinary tract infection (Acute) Z87.440 H/O type 2 diabetes mellitus (Acute) Z86.39 H/O: HTN (hypertension) (Acute) Z86.79 Nonhealing ulcer of heel (Acute) L97.409 r/o osteomyelitis (Acute) - Assessment Assessment: 1. Nonhealing, complicated wound on left heel. chronic ostiomyelitis. ESR 115. CRP 1.3. 2. Diabetes mellitus type 2. Uncontrolled. 3. UTI. Klebsiella, and E coli. 4. Hypertension. 5. PAD ( please review Arterial u/s) - Plan Plan: Wound care, antibiotic Rocephin. Continue rocephin 2 gm IV daily for 6 weeks and wound care. Nutritional Asmnt/Malnutr-PDOC - Dietary Evaluation Malnutrition Findings (Please click <Entered> for more info): Nutritional Asmnt/Malnutrition Start: 02/23/17 11: 00 Text: Status: Complete Freq: Document 02/23/17 14:16 TIFFANY (Rec: 02/23/17 14:25 TIFFANY JON -[email or web address]) Nutritional Asmnt/Malnutrition Patient General Information Nutritional Screening Consult Diagnosis Diabetic ulcer/wound/ dehydration/DM uncontrolled Pertinent Medical Hx/Surgical Hx PMH: HTN, DM, CAD, CVA, TIA, dyslipidemia per MD notes Subjective Information Pt seen for Nutrition Consult (blood glucose level of 255). Pt seen resting in bed while eating lunch w/ son at bedside . Pt appeared over-nourished for ht, c/w anthropometrics and verified by pt. Per son, pt recently moved from a [facility], where she did not follow any diet restrictions. Pt reported "okay" appetite, and denied any difficulty chewing/swallowing. RN reported that pt has been eating 50-60% on average. RD encouraged pt to try to increase PO intakes for adequate nutrition for wound healing. Pt may benefit from Boost Glucose Control oral supplement. Pt was interested in strawberry-flavored oral supplement. RD to notify [facility] staff. RD communicated w/ RN regarding RD rec for Boost Glucose Control BID; RN paged attending MD; awaiting orders. Pt is not yet meeting optimal nutritional needs. Pt declined nutrition education. Current Diet Order/ Nutrition Support [facility] Patient / S.O Can Pertinent Medications colace, pepcid, iron, lasix, insulin aspart, levemir, culturelle, senna, VIT B complex w/ VIT C Pertinent Labs BG 179 H, POC BG 165 H, BUN 38 H, Triglycerides 191 H, H/H 10/6 L/31/3 L, LDL 68 L Nutritional Hx/Data Height 1.57 m Height (Calculated Centimeters) 157.5 Current Weight (lbs) 102.058 kg Weight (Calculated Kilograms) 102.1 Weight (Calculated Grams) 998663.3 Usual body Weight (lbs) 223 % Usual Body Weight 101 [place] Body Weight 110 lb, 50 kg. Adj IBW ( obesity): 139 lb, 63 kg % [place] Body Weight 204 Recent Weight Change No Weight Status Obese GI Symptoms GI Symptoms None Food Allergies No Usual diet at home Regular Skin Integrity/Comment: [place]: 13; diabetic ulcer L heel noted; redness to back/ perineal per RN Current %PO Fair (50-74%) Estimated Nutritional Goals BEE in Kcals: Adj wt of IBW Calories/Kcals/Kg 30-35 kcal/kg Adj IBW (wound healing) Kcals Calculated 9671-0466 kcal/day Protein: Adj wt of IBW Protein g/k.2-1.5 gm/kg Adj IBW (wound healing) Protein Calculated 76-95 gm/day Fluid: ml 3 L/day (30 ml/kg CBW for wound healing, dehydration) Nutritional Problem 1. Problem Problem Increased nutritional needs Etiology related to metabolic demands Signs/Symptoms: as evidenced by estimated nutritional requirements for wound healing. Malnutrition Related to Morbid Obesity Malnutrition related to morbid obesity Weight 200% of ideal wt Query Text:(Any 1 Criteria met) Malnutrition related to morbid obesity Yes Intervention/Recommendation Recommendations by RD Increase Calorie Intake Protein supplementation Comments * Recommend [facility] diet, Boost Glucose Control BID (oral supplement provides an additional 500 kcal/day and 28 gm protein/day) Expected Outcomes/Goals Expected Outcomes/Goals - Monitor appetite and PO intakes w/ goal of pt meeting at least 75% of estimated nutritional needs, labs trending WNL, normal GI function, and skin integrity/ wt maintenance within 3-5 days
[2017-02-28] MEDS: cefTRIAXone 2 GM in Sodium Chloride 0.9% 50 ML IV SCH (13:13)
--- NOTE | 2017-02-28 15:15 | General Progress Note ---
Subjective - Review of Systems Events since last encounter: no acute distress Objective - Results Result Diagrams: 02/28/17 05:30 02/28/17 05:30 Recent Labs: Laboratory Last Values WBC 9.2 Th/cmm (4.8-10.8) 02/28/17 05:30 RBC 3.78 Mil/cmm (3.80-5.20) L 02/28/17 05:30 Hgb 11.3 gm/dL (12-16) L 02/28/17 05:30 Hct 33.3 % (41.0-60) L 02/28/17 05:30 MCV 88.1 fl (81-100) 02/28/17 05:30 MCH 29.8 pg (27.0-31.0) 02/28/17 05:30 MCHC Differential 33.9 pg (28.0-36.0) 02/28/17 05:30 RDW 13.7 % (11.5-20.0) 02/28/17 05:30 Plt Count 219 Th/cmm (150-400) 02/28/17 05:30 MPV 8.8 fl 02/28/17 05:30 Neutrophils % 81.0 % (40.0-80.0) H 02/28/17 05:30 Lymphocytes % 7.8 % (20.0-50.0) L 02/28/17 05:30 Monocytes % 5.7 % (2.0-10.0) 02/28/17 05:30 Eosinophils % 5.2 % (0.0-5.0) H 02/28/17 05:30 Basophils % 0.3 % (0.0-2.0) 02/28/17 05:30 ESR 115 mm/hr (0-30) H 02/24/17 04:47 PT 10.9 SECONDS (9.5-11.5) 02/28/17 05:30 INR 1.05 (0.5-1.4) 02/28/17 05:30 PTT (Actin FS) 24.7 SECONDS (26.0-38.0) L 02/28/17 05:30 Sodium 136 mEq/L (136-145) 02/28/17 05:30 Potassium 3.6 mEq/L (3.5-5.1) 02/28/17 05:30 Chloride 102 mEq/L (98-107) 02/28/17 05:30 Carbon Dioxide 27.5 mEq/L (21.0-31.0) 02/28/17 05:30 Anion Gap 10.1 (7.0-16.0) 02/28/17 05:30 BUN 28 mg/dL (7-25) H 02/28/17 05:30 Creatinine 1.3 mg/dL (0.6-1.2) H 02/28/17 05:30 Est GFR ( Amer) TNP 02/28/17 05:30 Est GFR (Non-Af Amer) TNP 02/28/17 05:30 BUN/Creatinine Ratio 21.5 02/28/17 05:30 Glucose 226 mg/dL (70-105) H 02/28/17 05:30 POC Glucose 236 MG/DL (70 - 105) H 02/28/17 11:32 Hemoglobin A1c % 9.1 % (4.0-6.0) H 02/22/17 17:26 Whole Bld Lactic Acid 1.38 mmol/L (0.60-1.99) 02/22/17 19:45 Calcium 9.5 mg/dL (8.6-10.3) 02/28/17 05:30 Total Bilirubin 0.3 mg/dL (0.3-1.0) 02/22/17 17:26 AST 24 U/L (13-39) 02/22/17 17:26 ALT 21 U/L (7-52) 02/22/17 17:26 Alkaline Phosphatase 207 U/L (34-104) H 02/22/17 17:26 Creatine Kinase 70 U/L (30-223) 02/22/17 17:26 Troponin I 0.01 ng/mL (0.01-0.05) 02/22/17 17:26 C-Reactive Protein 1.3 mg/dL (0.0-0.9) H 02/24/17 04:47 B-Natriuretic Peptide 60.3 pg/mL (5.0-100.0) 02/26/17 11:00 Total Protein 8.4 gm/dL (6.0-8.3) H 02/22/17 17:26 Albumin 4.0 gm/dL (3.7-5.3) 02/22/17 17:26 Globulin 4.4 gm/dL 02/22/17 17:26 Albumin/Globulin Ratio 0.9 (1.0-1.8) L 02/22/17 17:26 Triglycerides 191 mg/dL (<150) H 02/23/17 05:30 Cholesterol 134 mg/dL (<200) 02/23/17 05:30 LDL Cholesterol Direct 68 mg/dL (75-193) L 02/23/17 05:30 HDL Cholesterol 36 mg/dL (23-92) 02/23/17 05:30 TSH 1.77 uIU/ml (0.34-5.60) 02/23/17 05:30 Urine Source CLEAN C 02/22/17 18:50 Urine Color YELLOW 02/22/17 18:50 Urine Clarity CLOUDY (CLEAR) H 02/22/17 18:50 Urine pH 5.5 (4.6 - 8.0) 02/22/17 18:50 Ur Specific [place] 1.015 (1.005-1.030) 02/22/17 18:50 Urine Protein TRACE mg/dL (NEGATIVE) 02/22/17 18:50 Urine Glucose (UA) >=1000 mg/dL (NEGATIVE) H 02/22/17 18:50 Urine Ketones NEGATIVE mg/dL (NEGATIVE) 02/22/17 18:50 Urine Blood MODERATE (NEGATIVE) H 02/22/17 18:50 Urine Nitrate POSITIVE (NEGATIVE) H 02/22/17 18:50 Urine Bilirubin NEGATIVE (NEGATIVE) 02/22/17 18:50 Urine Urobilinogen 0.2 E.U./dL (0.2 - 1.0) 02/22/17 18:50 Ur Leukocyte Esterase MODERATE (NEGATIVE) H 02/22/17 18:50 Urine RBC 10-25 /hpf (0-5) H 02/22/17 18:50 Urine WBC >100 /hpf (0-5) H 02/22/17 18:50 Ur Epithelial Cells MODERATE /lpf (FEW) 02/22/17 18:50 Urine Bacteria MANY /hpf (NONE SEEN) 02/22/17 18:50 - Physical Exam Vitals and I&O: Vital Signs Temp 100.1 F 02/28/17 12:00 Pulse 105 02/28/17 12:00 Resp 19 02/28/17 12:00 BP 158/68 02/28/17 12:00 Pulse Ox 98 02/28/17 12:00 Intake & Output 02/27/17 02/28/17 02/28/17 18:59 06:59 18:59 Intake Total 720 200 Balance 720 200 Weight (lbs) 99.654 kg 99.337 kg Intake: Oral 720 200 Other: # Voids 3 3 # Bowel Movements 1 Active Medications: Current Medications Acetaminophen (Tylenol) 325 mg PO Q4HR PRN PRN Reason: Pain (Mild) Stop: 04/23/17 20:52 Last Admin: 02/28/17 14:49 Dose: 325 mg Albuterol Sulfate (Albuterol 2.5mg/3ml Neb Ud) 2.5 mg HHN Q6HRT PRN PRN Reason: shortness of breath Stop: 04/24/17 18:59 Amlodipine Besylate (Norvasc) 5 mg PO DAILY [facility] Stop: 04/24/17 08:59 Last Admin: 02/28/17 10:12 Dose: Not Given Aspirin (Aspirin Chewable) 81 mg PO DAILY [facility] Stop: 04/24/17 08:59 Last Admin: 02/28/17 10:12 Dose: Not Given Citalopram Hydrobromide (Celexa) 40 mg PO HS [facility] Stop: 04/23/17 20:59 Last Admin: 02/27/17 22:19 Dose: 40 mg Clopidogrel Bisulfate (Plavix) 75 mg PO DAILY [facility] Stop: 04/24/17 08:59 Last Admin: 02/28/17 10:12 Dose: Not Given Docusate Sodium (Colace) 100 mg PO DAILY [facility] Stop: 04/24/17 08:59 Last Admin: 02/28/17 10:13 Dose: Not Given Famotidine (Pepcid) 20 mg PO DAILY [facility] Stop: 04/24/17 08:59 Last Admin: 02/28/17 10:13 Dose: Not Given Ferrous Sulfate (Iron) 325 mg PO DAILY [facility] Stop: 04/24/17 08:59 Last Admin: 02/28/17 10:13 Dose: Not Given Furosemide (Lasix) 40 mg PO DAILY [facility] Stop: 04/24/17 08:59 Last Admin: 02/28/17 10:13 Dose: Not Given Sodium Chloride (Nacl 0.9%) 1,000 mls @ 0 mls/hr IV .Q0M VEE PRN Reason: TKO Stop: 04/25/17 17:44 Last Admin: 02/27/17 19:52 Dose: 10 mls/hr Ceftriaxone Sodium 2 gm/ (Sodium Chloride) 50 mls @ 100 mls/hr IV Q24HR@0900 [facility] Stop: 04/29/17 11:59 Last Admin: 02/28/17 13:13 Dose: 100 mls/hr Insulin Aspart (Novolog Insulin Sliding Scale) 0 units SUBQ ACHS VEE PRN Reason: Protocol Stop: 04/23/17 20:59 Last Admin: 02/28/17 12:26 Dose: 4 units Insulin Detemir (Levemir Insulin) 32 units SUBQ QPM [facility] Stop: 04/23/17 21:29 Last Admin: 02/27/17 17:40 Dose: 32 units Lactobacillus Rhamnosus (Culturelle) 1 each PO DAILY [facility] Stop: 04/25/17 08:59 Last Admin: 02/28/17 10:13 Dose: Not Given Lisinopril (Zestril) 5 mg PO DAILY [facility] Stop: 04/24/17 08:59 Last Admin: 02/28/17 10:13 Dose: Not Given Miscellaneous (Probiotic Screen) 1 ea MC PRN PRN PRN Reason: PROTOCOL Stop: 04/24/17 09:59 Morphine Sulfate (Morphine) 1 mg IVP Q4HR PRN PRN Reason: Pain (Severe) Stop: 04/29/17 06:54 Last Admin: 02/28/17 13:56 Dose: 1 mg Oxycodone/Acetaminophen (Percocet 5/325mg Oral Tab) 1 tab PO Q6H PRN PRN Reason: Pain (Moderate) Stop: 04/27/17 09:26 Last Admin: 02/28/17 12:30 Dose: 1 tab Senna (Senna) 8.6 mg PO DAILY [facility] Stop: 04/24/17 08:59 Last Admin: 02/28/17 10:13 Dose: Not Given Vitamin B Complex/Vitamin C (Vitamin B Complex W/C) 1 tab PO DAILY [facility] Stop: 04/24/17 08:59 Last Admin: 02/28/17 10:12 Dose: Not Given Wound Care/Dressing Products (Therahoney) 1 appl TP DAILY [facility] Stop: 04/25/17 11:14 Last Admin: 02/28/17 10:14 Dose: Not Given General: No acute distress HEENT: Atraumatic, PERRLA Neck: Thyromegaly Cardiovascular: Regular rate, Normal S1 - Procedures Procedures: Procedures Procedure Code Date JANINA SUBQ TISSUE 20 SQ CM/< 86341 02/22/17 EXCISION OF L FOOT SUBCU/FASCIA, OPEN APPROACH [id number] 02/22/17 Assessment/Plan - Problem List Patient Problems: All Active Problems H/O recurrent urinary tract infection (Acute) Z87.440 H/O type 2 diabetes mellitus (Acute) Z86.39 H/O: HTN (hypertension) (Acute) Z86.79 Nonhealing ulcer of heel (Acute) L97.409 r/o osteomyelitis (Acute) - Plan Plan: cpm Nutritional Asmnt/Malnutr-PDOC - Dietary Evaluation Malnutrition Findings (Please click <Entered> for more info): Nutritional Asmnt/Malnutrition Start: 02/23/17 11: 00 Text: Status: Complete Freq: Document 02/23/17 14:16 MPENAFUERT (Rec: 02/23/17 14:25 MPENAFUERT JON -[email or web address]) Nutritional Asmnt/Malnutrition Patient General Information Nutritional Screening Consult Diagnosis Diabetic ulcer/wound/ dehydration/DM uncontrolled Pertinent Medical Hx/Surgical Hx PMH: HTN, DM, CAD, CVA, TIA, dyslipidemia per MD notes Subjective Information Pt seen for Nutrition Consult (blood glucose level of 255). Pt seen resting in bed while eating lunch w/ son at bedside . Pt appeared over-nourished for ht, c/w anthropometrics and verified by pt. Per son, pt recently moved from a [facility], where she did not follow any diet restrictions. Pt reported "okay" appetite, and denied any difficulty chewing/swallowing. RN reported that pt has been eating 50-60% on average. RD encouraged pt to try to increase PO intakes for adequate nutrition for wound healing. Pt may benefit from Boost Glucose Control oral supplement. Pt was interested in strawberry-flavored oral supplement. RD to notify [facility] staff. RD communicated w/ RN regarding RD rec for Boost Glucose Control BID; RN paged attending MD; awaiting orders. Pt is not yet meeting optimal nutritional needs. Pt declined nutrition education. Current Diet Order/ Nutrition Support CCHO Patient / S.O Can Pertinent Medications colace, pepcid, iron, lasix, insulin aspart, levemir, culturelle, senna, VIT B complex w/ VIT C Pertinent Labs BG 179 H, POC BG 165 H, BUN 38 H, Triglycerides 191 H, H/H 10/6 L/31/3 L, LDL 68 L Nutritional Hx/Data Height 1.57 m Height (Calculated Centimeters) 157.5 Current Weight (lbs) 102.058 kg Weight (Calculated Kilograms) 102.1 Weight (Calculated Grams) 640135.3 Usual body Weight (lbs) 223 % Usual Body Weight 101 [place] Body Weight 110 lb, 50 kg. Adj IBW ( obesity): 139 lb, 63 kg % [place] Body Weight 204 Recent Weight Change No Weight Status Obese GI Symptoms GI Symptoms None Food Allergies No Usual diet at home Regular Skin Integrity/Comment: [place]: 13; diabetic ulcer L heel noted; redness to back/ perineal per RN Current %PO Fair (50-74%) Estimated Nutritional Goals BEE in Kcals: Adj wt of IBW Calories/Kcals/Kg 30-35 kcal/kg Adj IBW (wound healing) Kcals Calculated 9826-9966 kcal/day Protein: Adj wt of IBW Protein g/k.2-1.5 gm/kg Adj IBW (wound healing) Protein Calculated 76-95 gm/day Fluid: ml 3 L/day (30 ml/kg CBW for wound healing, dehydration) Nutritional Problem 1. Problem Problem Increased nutritional needs Etiology related to metabolic demands Signs/Symptoms: as evidenced by estimated nutritional requirements for wound healing. Malnutrition Related to Morbid Obesity Malnutrition related to morbid obesity Weight 200% of ideal wt Query Text:(Any 1 Criteria met) Malnutrition related to morbid obesity Yes Intervention/Recommendation Recommendations by RD Increase Calorie Intake Protein supplementation Comments * Recommend [facility] diet, Boost Glucose Control BID (oral supplement provides an additional 500 kcal/day and 28 gm protein/day) Expected Outcomes/Goals Expected Outcomes/Goals - Monitor appetite and PO intakes w/ goal of pt meeting at least 75% of estimated nutritional needs, labs trending WNL, normal GI function, and skin integrity/ wt maintenance within 3-5 days
[2017-02-28] MEDS: Insulin Detemir 100 units/mL 10mL Vial SUBQ SCH (17:10)
[2017-03-01] MEDS: APAP/Oxycodone 5/325mg Oral Tab PO PRN ×2 (00:01→10:41)
[2017-03-01] MEDS: Morphine Sulfate 2 mg/mL 1mL Syr IVP PRN ×2 (03:04→14:49)
[2017-03-01 06:08] LABS: % BASOPHILS 0.8 % (0.0-2.0); % LYMPHOCYTES 5.7 % (20.0-50.0); % MONOCYTES 5.6 % (2.0-10.0); % NEUTROPHILS 86.9 % (40.0-80.0); HEMOGLOBIN 10.1 gm/dL (12-16); MEAN CELL VOLUME 87.1 fl (81-100); MEAN CORPUSCULAR HEMOGLOBIN 29.7 pg (27.0-31.0); MEAN CORPUSCULAR HGB CONC 34.1 pg (28.0-36.0); MEAN PLATELET VOLUME 9.7 fl; NEUTROPHILE ABSOLUTE 8.4 Th/cmm (1.8-8.0); RED CELL DISTRIBUTION WIDTH 13.9 % (11.5-20.0); WHITE BLOOD COUNT 9.7 Th/cmm (4.8-10.8)
[2017-03-01 06:09] LABS: HEMATOCRIT 29.6 % (41.0-60); PLATELET COUNT 169 Th/cmm (150-400)
[2017-03-01 06:29] LABS: ANION GAP 12.1 (7.0-16.0); BUN - UREA NITROGEN 31 mg/dL (7-25); BUN/CREATININE RATIO 22.1; CALCIUM SERUM 9.1 mg/dL (8.6-10.3); CARBON DIOXIDE 24.4 mEq/L (21.0-31.0); CHLORIDE 106 mEq/L (98-107); CREATININE - SERUM 1.4 mg/dL (0.6-1.2); GLUCOSE 247 mg/dL (70-105); POTASSIUM SERUM 3.5 mEq/L (3.5-5.1); SODIUM SERUM 139 mEq/L (136-145)
[2017-03-01] MEDS: Ascorbic Acid/Vit B Complex Tab PO SCH (09:57)
[2017-03-01] MEDS: Aspirin 81mg Chewable Tab PO SCH (09:58)
[2017-03-01] MEDS: Ferrous Sulfate 325 MG TAB PO SCH (09:59)
[2017-03-01] MEDS: Lactobacillus Rhamnosus 10 Billion CFU Capsule PO SCH (09:59)
[2017-03-01] MEDS: cefTRIAXone 2 GM in Sodium Chloride 0.9% 50 ML IV SCH (10:06)
--- NOTE | 2017-03-01 11:52 | General Progress Note ---
Subjective - Review of Systems Events since last encounter: no acute distress Objective - Results Result Diagrams: 03/01/17 05:59 03/01/17 05:59 Recent Labs: Laboratory Last Values WBC 9.7 Th/cmm (4.8-10.8) 03/01/17 05:59 RBC 3.40 Mil/cmm (3.80-5.20) L 03/01/17 05:59 Hgb 10.1 gm/dL (12-16) L 03/01/17 05:59 Hct 29.6 % (41.0-60) L D 03/01/17 05:59 MCV 87.1 fl (81-100) 03/01/17 05:59 MCH 29.7 pg (27.0-31.0) 03/01/17 05:59 MCHC Differential 34.1 pg (28.0-36.0) 03/01/17 05:59 RDW 13.9 % (11.5-20.0) 03/01/17 05:59 Plt Count 169 Th/cmm (150-400) D 03/01/17 05:59 MPV 9.7 fl 03/01/17 05:59 Neutrophils % 86.9 % (40.0-80.0) H 03/01/17 05:59 Lymphocytes % 5.7 % (20.0-50.0) L 03/01/17 05:59 Monocytes % 5.6 % (2.0-10.0) 03/01/17 05:59 Eosinophils % 1.0 % (0.0-5.0) 03/01/17 05:59 Basophils % 0.8 % (0.0-2.0) 03/01/17 05:59 ESR 115 mm/hr (0-30) H 02/24/17 04:47 PT 10.9 SECONDS (9.5-11.5) 02/28/17 05:30 INR 1.05 (0.5-1.4) 02/28/17 05:30 PTT (Actin FS) 24.7 SECONDS (26.0-38.0) L 02/28/17 05:30 Sodium 139 mEq/L (136-145) 03/01/17 05:59 Potassium 3.5 mEq/L (3.5-5.1) 03/01/17 05:59 Chloride 106 mEq/L (98-107) 03/01/17 05:59 Carbon Dioxide 24.4 mEq/L (21.0-31.0) 03/01/17 05:59 Anion Gap 12.1 (7.0-16.0) 03/01/17 05:59 BUN 31 mg/dL (7-25) H 03/01/17 05:59 Creatinine 1.4 mg/dL (0.6-1.2) H 03/01/17 05:59 Est GFR ( Amer) TNP 03/01/17 05:59 Est GFR (Non-Af Amer) TNP 03/01/17 05:59 BUN/Creatinine Ratio 22.1 03/01/17 05:59 Glucose 247 mg/dL (70-105) H 03/01/17 05:59 POC Glucose 254 MG/DL (70 - 105) H 03/01/17 06:39 Hemoglobin A1c % 9.1 % (4.0-6.0) H 02/22/17 17:26 Whole Bld Lactic Acid 1.38 mmol/L (0.60-1.99) 02/22/17 19:45 Calcium 9.1 mg/dL (8.6-10.3) 03/01/17 05:59 Total Bilirubin 0.3 mg/dL (0.3-1.0) 02/22/17 17:26 AST 24 U/L (13-39) 02/22/17 17:26 ALT 21 U/L (7-52) 02/22/17 17:26 Alkaline Phosphatase 207 U/L (34-104) H 02/22/17 17:26 Creatine Kinase 70 U/L (30-223) 02/22/17 17:26 Troponin I 0.01 ng/mL (0.01-0.05) 02/22/17 17:26 C-Reactive Protein 1.3 mg/dL (0.0-0.9) H 02/24/17 04:47 B-Natriuretic Peptide 60.3 pg/mL (5.0-100.0) 02/26/17 11:00 Total Protein 8.4 gm/dL (6.0-8.3) H 02/22/17 17:26 Albumin 4.0 gm/dL (3.7-5.3) 02/22/17 17:26 Globulin 4.4 gm/dL 02/22/17 17:26 Albumin/Globulin Ratio 0.9 (1.0-1.8) L 02/22/17 17:26 Triglycerides 191 mg/dL (<150) H 02/23/17 05:30 Cholesterol 134 mg/dL (<200) 02/23/17 05:30 LDL Cholesterol Direct 68 mg/dL (75-193) L 02/23/17 05:30 HDL Cholesterol 36 mg/dL (23-92) 02/23/17 05:30 TSH 1.77 uIU/ml (0.34-5.60) 02/23/17 05:30 Urine Source CLEAN C 02/22/17 18:50 Urine Color YELLOW 02/22/17 18:50 Urine Clarity CLOUDY (CLEAR) H 02/22/17 18:50 Urine pH 5.5 (4.6 - 8.0) 02/22/17 18:50 Ur Specific [place] 1.015 (1.005-1.030) 02/22/17 18:50 Urine Protein TRACE mg/dL (NEGATIVE) 02/22/17 18:50 Urine Glucose (UA) >=1000 mg/dL (NEGATIVE) H 02/22/17 18:50 Urine Ketones NEGATIVE mg/dL (NEGATIVE) 02/22/17 18:50 Urine Blood MODERATE (NEGATIVE) H 02/22/17 18:50 Urine Nitrate POSITIVE (NEGATIVE) H 02/22/17 18:50 Urine Bilirubin NEGATIVE (NEGATIVE) 02/22/17 18:50 Urine Urobilinogen 0.2 E.U./dL (0.2 - 1.0) 02/22/17 18:50 Ur Leukocyte Esterase MODERATE (NEGATIVE) H 02/22/17 18:50 Urine RBC 10-25 /hpf (0-5) H 02/22/17 18:50 Urine WBC >100 /hpf (0-5) H 02/22/17 18:50 Ur Epithelial Cells MODERATE /lpf (FEW) 02/22/17 18:50 Urine Bacteria MANY /hpf (NONE SEEN) 02/22/17 18:50 - Physical Exam Vitals and I&O: Vital Signs Temp 101.0 F 03/01/17 08:00 Pulse 97 03/01/17 09:59 Resp 22 03/01/17 08:00 BP 172/72 03/01/17 09:59 Pulse Ox 96 03/01/17 08:00 Intake & Output 02/28/17 03/01/17 03/01/17 18:59 06:59 18:59 Intake Total 530 600 Balance 530 600 Weight (lbs) 99.337 kg 101.151 kg 101.151 kg Intake: Intake, IV Amount 50 cefTRIAXone 2 gm In 50 Sodium Chloride 0.9% 50 ml @ 100 mls/hr IV Q24HR@ 0900 [facility] Rx#:[id number] Oral 480 600 Other: # Voids 3 # Bowel Movements 0 0 Active Medications: Current Medications Acetaminophen (Tylenol) 325 mg PO Q4HR PRN PRN Reason: Pain (Mild) Stop: 04/23/17 20:52 Last Admin: 02/28/17 14:49 Dose: 325 mg Albuterol Sulfate (Albuterol 2.5mg/3ml Neb Ud) 2.5 mg HHN Q6HRT PRN PRN Reason: shortness of breath Stop: 04/24/17 18:59 Amlodipine Besylate (Norvasc) 5 mg PO DAILY [facility] Stop: 04/24/17 08:59 Last Admin: 03/01/17 09:57 Dose: 5 mg Aspirin (Aspirin Chewable) 81 mg PO DAILY [facility] Stop: 04/24/17 08:59 Last Admin: 03/01/17 09:58 Dose: 81 mg Citalopram Hydrobromide (Celexa) 40 mg PO HS [facility] Stop: 04/23/17 20:59 Last Admin: 02/28/17 21:23 Dose: 40 mg Clopidogrel Bisulfate (Plavix) 75 mg PO DAILY [facility] Stop: 04/24/17 08:59 Last Admin: 03/01/17 09:59 Dose: 75 mg Docusate Sodium (Colace) 100 mg PO DAILY [facility] Stop: 04/24/17 08:59 Last Admin: 03/01/17 09:57 Dose: 100 mg Famotidine (Pepcid) 20 mg PO DAILY [facility] Stop: 04/24/17 08:59 Last Admin: 03/01/17 10:00 Dose: 20 mg Ferrous Sulfate (Iron) 325 mg PO DAILY [facility] Stop: 04/24/17 08:59 Last Admin: 03/01/17 09:59 Dose: 325 mg Furosemide (Lasix) 40 mg PO DAILY [facility] Stop: 04/24/17 08:59 Last Admin: 03/01/17 09:59 Dose: 40 mg Sodium Chloride (Nacl 0.9%) 1,000 mls @ 0 mls/hr IV .Q0M VEE PRN Reason: TKO Stop: 04/25/17 17:44 Last Admin: 02/27/17 19:52 Dose: 10 mls/hr Ceftriaxone Sodium 2 gm/ (Sodium Chloride) 50 mls @ 100 mls/hr IV Q24HR@0900 [facility] Stop: 04/29/17 11:59 Last Admin: 03/01/17 10:06 Dose: 100 mls/hr Insulin Aspart (Novolog Insulin Sliding Scale) 0 units SUBQ ACHS VEE PRN Reason: Protocol Stop: 04/23/17 20:59 Last Admin: 02/28/17 21:23 Dose: 6 units Insulin Detemir (Levemir Insulin) 32 units SUBQ QPM [facility] Stop: 04/23/17 21:29 Last Admin: 02/28/17 17:10 Dose: 32 units Lactobacillus Rhamnosus (Culturelle) 1 each PO DAILY [facility] Stop: 04/25/17 08:59 Last Admin: 03/01/17 09:59 Dose: 1 each Lisinopril (Zestril) 5 mg PO DAILY [facility] Stop: 04/24/17 08:59 Last Admin: 03/01/17 09:59 Dose: 5 mg Miscellaneous (Probiotic Screen) 1 ea MC PRN PRN PRN Reason: PROTOCOL Stop: 04/24/17 09:59 Morphine Sulfate (Morphine) 2 mg IVP Q4H PRN PRN Reason: Pain (Severe) Stop: 04/29/17 16:45 Last Admin: 03/01/17 03:04 Dose: 2 mg Oxycodone/Acetaminophen (Percocet 5/325mg Oral Tab) 1 tab PO Q6H PRN PRN Reason: Pain (Moderate) Stop: 04/27/17 09:26 Last Admin: 03/01/17 10:41 Dose: 1 tab Senna (Senna) 8.6 mg PO DAILY [facility] Stop: 04/24/17 08:59 Last Admin: 03/01/17 09:58 Dose: 8.6 mg Vitamin B Complex/Vitamin C (Vitamin B Complex W/C) 1 tab PO DAILY [facility] Stop: 04/24/17 08:59 Last Admin: 03/01/17 09:57 Dose: 1 tab Wound Care/Dressing Products (Therahoney) 1 appl TP DAILY [facility] Stop: 04/25/17 11:14 Last Admin: 02/28/17 10:14 Dose: Not Given General: No acute distress HEENT: Atraumatic, PERRLA Neck: Thyromegaly Cardiovascular: Regular rate, Normal S1 - Procedures Procedures: Procedures Procedure Code Date JANINA SUBQ TISSUE 20 SQ CM/< 39753 02/22/17 EXCISION OF L FOOT SUBCU/FASCIA, OPEN APPROACH [id number] 02/22/17 Assessment/Plan - Problem List Patient Problems: All Active Problems H/O recurrent urinary tract infection (Acute) Z87.440 H/O type 2 diabetes mellitus (Acute) Z86.39 H/O: HTN (hypertension) (Acute) Z86.79 Nonhealing ulcer of heel (Acute) L97.409 r/o osteomyelitis (Acute) - Plan Plan: cpm Nutritional Asmnt/Malnutr-PDOC - Dietary Evaluation Malnutrition Findings (Please click <Entered> for more info): Nutritional Asmnt/Malnutrition Start: 02/23/17 11: 00 Text: Status: Complete Freq: Document 02/23/17 14:16 TIFFANY (Rec: 02/23/17 14:25 TIFFANY [email or web address] -[email or web address]) Nutritional Asmnt/Malnutrition Patient General Information Nutritional Screening Consult Diagnosis Diabetic ulcer/wound/ dehydration/DM uncontrolled Pertinent Medical Hx/Surgical Hx PMH: HTN, DM, CAD, CVA, TIA, dyslipidemia per MD notes Subjective Information Pt seen for Nutrition Consult (blood glucose level of 255). Pt seen resting in bed while eating lunch w/ son at bedside . Pt appeared over-nourished for ht, c/w anthropometrics and verified by pt. Per son, pt recently moved from a [facility], where she did not follow any diet restrictions. Pt reported "okay" appetite, and denied any difficulty chewing/swallowing. RN reported that pt has been eating 50-60% on average. RD encouraged pt to try to increase PO intakes for adequate nutrition for wound healing. Pt may benefit from Boost Glucose Control oral supplement. Pt was interested in strawberry-flavored oral supplement. RD to notify [facility] staff. RD communicated w/ RN regarding RD rec for Boost Glucose Control BID; RN paged attending MD; awaiting orders. Pt is not yet meeting optimal nutritional needs. Pt declined nutrition education. Current Diet Order/ Nutrition Support [facility] Patient / S.O Can Pertinent Medications colace, pepcid, iron, lasix, insulin aspart, levemir, culturelle, senna, VIT B complex w/ VIT C Pertinent Labs BG 179 H, POC BG 165 H, BUN 38 H, Triglycerides 191 H, H/H 10/6 L/31/3 L, LDL 68 L Nutritional Hx/Data Height 1.57 m Height (Calculated Centimeters) 157.5 Current Weight (lbs) 102.058 kg Weight (Calculated Kilograms) 102.1 Weight (Calculated Grams) 586621.3 Usual body Weight (lbs) 223 % Usual Body Weight 101 [place] Body Weight 110 lb, 50 kg. Adj IBW ( obesity): 139 lb, 63 kg % [place] Body Weight 204 Recent Weight Change No Weight Status Obese GI Symptoms GI Symptoms None Food Allergies No Usual diet at home Regular Skin Integrity/Comment: [place]: 13; diabetic ulcer L heel noted; redness to back/ perineal per RN Current %PO Fair (50-74%) Estimated Nutritional Goals BEE in Kcals: Adj wt of IBW Calories/Kcals/Kg 30-35 kcal/kg Adj IBW (wound healing) Kcals Calculated 8054-4071 kcal/day Protein: Adj wt of IBW Protein g/k.2-1.5 gm/kg Adj IBW (wound healing) Protein Calculated 76-95 gm/day Fluid: ml 3 L/day (30 ml/kg CBW for wound healing, dehydration) Nutritional Problem 1. Problem Problem Increased nutritional needs Etiology related to metabolic demands Signs/Symptoms: as evidenced by estimated nutritional requirements for wound healing. Malnutrition Related to Morbid Obesity Malnutrition related to morbid obesity Weight 200% of ideal wt Query Text:(Any 1 Criteria met) Malnutrition related to morbid obesity Yes Intervention/Recommendation Recommendations by RD Increase Calorie Intake Protein supplementation Comments * Recommend [facility] diet, Boost Glucose Control BID (oral supplement provides an additional 500 kcal/day and 28 gm protein/day) Expected Outcomes/Goals Expected Outcomes/Goals - Monitor appetite and PO intakes w/ goal of pt meeting at least 75% of estimated nutritional needs, labs trending WNL, normal GI function, and skin integrity/ wt maintenance within 3-5 days
[2017-03-01] MEDS: INSULIN ASPART SLIDING SCALE 100 UNITS/ML UNIT SUBQ SCH ×3 (12:52→21:01)
--- NOTE | 2017-03-01 15:04 | General Progress Note ---
Subjective - Review of Systems Service Date: 03/01/17 Events since last encounter: patient needs PICC line prior to DC for IV antibiotics incision clean Objective - Results Result Diagrams: 03/01/17 05:59 03/01/17 05:59 Recent Labs: Laboratory Last Values WBC 9.7 Th/cmm (4.8-10.8) 03/01/17 05:59 RBC 3.40 Mil/cmm (3.80-5.20) L 03/01/17 05:59 Hgb 10.1 gm/dL (12-16) L 03/01/17 05:59 Hct 29.6 % (41.0-60) L D 03/01/17 05:59 MCV 87.1 fl (81-100) 03/01/17 05:59 MCH 29.7 pg (27.0-31.0) 03/01/17 05:59 MCHC Differential 34.1 pg (28.0-36.0) 03/01/17 05:59 RDW 13.9 % (11.5-20.0) 03/01/17 05:59 Plt Count 169 Th/cmm (150-400) D 03/01/17 05:59 MPV 9.7 fl 03/01/17 05:59 Neutrophils % 86.9 % (40.0-80.0) H 03/01/17 05:59 Lymphocytes % 5.7 % (20.0-50.0) L 03/01/17 05:59 Monocytes % 5.6 % (2.0-10.0) 03/01/17 05:59 Eosinophils % 1.0 % (0.0-5.0) 03/01/17 05:59 Basophils % 0.8 % (0.0-2.0) 03/01/17 05:59 ESR 115 mm/hr (0-30) H 02/24/17 04:47 PT 10.9 SECONDS (9.5-11.5) 02/28/17 05:30 INR 1.05 (0.5-1.4) 02/28/17 05:30 PTT (Actin FS) 24.7 SECONDS (26.0-38.0) L 02/28/17 05:30 Sodium 139 mEq/L (136-145) 03/01/17 05:59 Potassium 3.5 mEq/L (3.5-5.1) 03/01/17 05:59 Chloride 106 mEq/L (98-107) 03/01/17 05:59 Carbon Dioxide 24.4 mEq/L (21.0-31.0) 03/01/17 05:59 Anion Gap 12.1 (7.0-16.0) 03/01/17 05:59 BUN 31 mg/dL (7-25) H 03/01/17 05:59 Creatinine 1.4 mg/dL (0.6-1.2) H 03/01/17 05:59 Est GFR ( Amer) TNP 03/01/17 05:59 Est GFR (Non-Af Amer) TNP 03/01/17 05:59 BUN/Creatinine Ratio 22.1 03/01/17 05:59 Glucose 247 mg/dL (70-105) H 03/01/17 05:59 POC Glucose 205 MG/DL (70 - 105) H 03/01/17 11:55 Hemoglobin A1c % 9.1 % (4.0-6.0) H 02/22/17 17:26 Whole Bld Lactic Acid 1.38 mmol/L (0.60-1.99) 02/22/17 19:45 Calcium 9.1 mg/dL (8.6-10.3) 03/01/17 05:59 Total Bilirubin 0.3 mg/dL (0.3-1.0) 02/22/17 17:26 AST 24 U/L (13-39) 02/22/17 17:26 ALT 21 U/L (7-52) 02/22/17 17:26 Alkaline Phosphatase 207 U/L (34-104) H 02/22/17 17:26 Creatine Kinase 70 U/L (30-223) 02/22/17 17:26 Troponin I 0.01 ng/mL (0.01-0.05) 02/22/17 17:26 C-Reactive Protein 1.3 mg/dL (0.0-0.9) H 02/24/17 04:47 B-Natriuretic Peptide 60.3 pg/mL (5.0-100.0) 02/26/17 11:00 Total Protein 8.4 gm/dL (6.0-8.3) H 02/22/17 17:26 Albumin 4.0 gm/dL (3.7-5.3) 02/22/17 17:26 Globulin 4.4 gm/dL 02/22/17 17:26 Albumin/Globulin Ratio 0.9 (1.0-1.8) L 02/22/17 17:26 Triglycerides 191 mg/dL (<150) H 02/23/17 05:30 Cholesterol 134 mg/dL (<200) 02/23/17 05:30 LDL Cholesterol Direct 68 mg/dL (75-193) L 02/23/17 05:30 HDL Cholesterol 36 mg/dL (23-92) 02/23/17 05:30 TSH 1.77 uIU/ml (0.34-5.60) 02/23/17 05:30 Urine Source CLEAN C 02/22/17 18:50 Urine Color YELLOW 02/22/17 18:50 Urine Clarity CLOUDY (CLEAR) H 02/22/17 18:50 Urine pH 5.5 (4.6 - 8.0) 02/22/17 18:50 Ur Specific [place] 1.015 (1.005-1.030) 02/22/17 18:50 Urine Protein TRACE mg/dL (NEGATIVE) 02/22/17 18:50 Urine Glucose (UA) >=1000 mg/dL (NEGATIVE) H 02/22/17 18:50 Urine Ketones NEGATIVE mg/dL (NEGATIVE) 02/22/17 18:50 Urine Blood MODERATE (NEGATIVE) H 02/22/17 18:50 Urine Nitrate POSITIVE (NEGATIVE) H 02/22/17 18:50 Urine Bilirubin NEGATIVE (NEGATIVE) 02/22/17 18:50 Urine Urobilinogen 0.2 E.U./dL (0.2 - 1.0) 02/22/17 18:50 Ur Leukocyte Esterase MODERATE (NEGATIVE) H 02/22/17 18:50 Urine RBC 10-25 /hpf (0-5) H 02/22/17 18:50 Urine WBC >100 /hpf (0-5) H 02/22/17 18:50 Ur Epithelial Cells MODERATE /lpf (FEW) 02/22/17 18:50 Urine Bacteria MANY /hpf (NONE SEEN) 02/22/17 18:50 - Physical Exam Vitals and I&O: Vital Signs Temp 98.7 F 03/01/17 11:55 Pulse 82 03/01/17 11:55 Resp 20 03/01/17 11:55 BP 145/71 03/01/17 11:55 Pulse Ox 97 03/01/17 11:55 Intake & Output 02/28/17 03/01/17 03/01/17 18:59 06:59 18:59 Intake Total 530 600 Balance 530 600 Weight (lbs) 99.337 kg 101.151 kg 101.151 kg Intake: Intake, IV Amount 50 cefTRIAXone 2 gm In 50 Sodium Chloride 0.9% 50 ml @ 100 mls/hr IV Q24HR@ 0900 [facility] Rx#:[id number] Oral 480 600 Other: # Voids 3 # Bowel Movements 0 0 Active Medications: Current Medications Acetaminophen (Tylenol) 325 mg PO Q4HR PRN PRN Reason: Pain (Mild) Stop: 04/23/17 20:52 Last Admin: 02/28/17 14:49 Dose: 325 mg Albuterol Sulfate (Albuterol 2.5mg/3ml Neb Ud) 2.5 mg HHN Q6HRT PRN PRN Reason: shortness of breath Stop: 04/24/17 18:59 Amlodipine Besylate (Norvasc) 5 mg PO DAILY [facility] Stop: 04/24/17 08:59 Last Admin: 03/01/17 09:57 Dose: 5 mg Aspirin (Aspirin Chewable) 81 mg PO DAILY [facility] Stop: 04/24/17 08:59 Last Admin: 03/01/17 09:58 Dose: 81 mg Citalopram Hydrobromide (Celexa) 40 mg PO HS [facility] Stop: 04/23/17 20:59 Last Admin: 02/28/17 21:23 Dose: 40 mg Clopidogrel Bisulfate (Plavix) 75 mg PO DAILY [facility] Stop: 04/24/17 08:59 Last Admin: 03/01/17 09:59 Dose: 75 mg Docusate Sodium (Colace) 100 mg PO DAILY [facility] Stop: 04/24/17 08:59 Last Admin: 03/01/17 09:57 Dose: 100 mg Famotidine (Pepcid) 20 mg PO DAILY [facility] Stop: 04/24/17 08:59 Last Admin: 03/01/17 10:00 Dose: 20 mg Ferrous Sulfate (Iron) 325 mg PO DAILY [facility] Stop: 04/24/17 08:59 Last Admin: 03/01/17 09:59 Dose: 325 mg Furosemide (Lasix) 40 mg PO DAILY [facility] Stop: 04/24/17 08:59 Last Admin: 03/01/17 09:59 Dose: 40 mg Sodium Chloride (Nacl 0.9%) 1,000 mls @ 0 mls/hr IV .Q0M VEE PRN Reason: TKO Stop: 04/25/17 17:44 Last Admin: 02/27/17 19:52 Dose: 10 mls/hr Ceftriaxone Sodium 2 gm/ (Sodium Chloride) 50 mls @ 100 mls/hr IV Q24HR@0900 [facility] Stop: 04/29/17 11:59 Last Admin: 03/01/17 10:06 Dose: 100 mls/hr Insulin Aspart (Novolog Insulin Sliding Scale) 0 units SUBQ ACHS VEE PRN Reason: Protocol Stop: 04/23/17 20:59 Last Admin: 03/01/17 12:52 Dose: 4 units Insulin Detemir (Levemir Insulin) 32 units SUBQ QPM [facility] Stop: 04/23/17 21:29 Last Admin: 02/28/17 17:10 Dose: 32 units Lactobacillus Rhamnosus (Culturelle) 1 each PO DAILY [facility] Stop: 04/25/17 08:59 Last Admin: 03/01/17 09:59 Dose: 1 each Lisinopril (Zestril) 5 mg PO DAILY [facility] Stop: 04/24/17 08:59 Last Admin: 03/01/17 09:59 Dose: 5 mg Miscellaneous (Probiotic Screen) 1 ea MC PRN PRN PRN Reason: PROTOCOL Stop: 04/24/17 09:59 Morphine Sulfate (Morphine) 2 mg IVP Q4H PRN PRN Reason: Pain (Severe) Stop: 04/29/17 16:45 Last Admin: 03/01/17 14:49 Dose: 2 mg Oxycodone/Acetaminophen (Percocet 5/325mg Oral Tab) 1 tab PO Q6H PRN PRN Reason: Pain (Moderate) Stop: 04/27/17 09:26 Last Admin: 03/01/17 10:41 Dose: 1 tab Senna (Senna) 8.6 mg PO DAILY [facility] Stop: 04/24/17 08:59 Last Admin: 03/01/17 09:58 Dose: 8.6 mg Vitamin B Complex/Vitamin C (Vitamin B Complex W/C) 1 tab PO DAILY [facility] Stop: 04/24/17 08:59 Last Admin: 03/01/17 09:57 Dose: 1 tab Wound Care/Dressing Products (Therahoney) 1 appl TP DAILY [facility] Stop: 04/25/17 11:14 Last Admin: 02/28/17 10:14 Dose: Not Given General: No acute distress HEENT: Atraumatic, PERRLA Neck: Thyromegaly Cardiovascular: Regular rate, Normal S1 - Procedures Procedures: Procedures Procedure Code Date JANINA SUBQ TISSUE 20 SQ CM/< 27273 02/22/17 EXCISION OF L FOOT SUBCU/FASCIA, OPEN APPROACH [id number] 02/22/17 Assessment/Plan - Problem List Patient Problems: All Active Problems H/O recurrent urinary tract infection (Acute) Z87.440 H/O type 2 diabetes mellitus (Acute) Z86.39 H/O: HTN (hypertension) (Acute) Z86.79 Nonhealing ulcer of heel (Acute) L97.409 r/o osteomyelitis (Acute) Nutritional Asmnt/Malnutr-PDOC - Dietary Evaluation Malnutrition Findings (Please click <Entered> for more info): Nutritional Asmnt/Malnutrition Start: 02/23/17 11: 00 Text: Status: Complete Freq: Document 02/23/17 14:16 TIFFANY (Rec: 02/23/17 14:25 TIFFANY [email or web address] -[email or web address]) Nutritional Asmnt/Malnutrition Patient General Information Nutritional Screening Consult Diagnosis Diabetic ulcer/wound/ dehydration/DM uncontrolled Pertinent Medical Hx/Surgical Hx PMH: HTN, DM, CAD, CVA, TIA, dyslipidemia per MD notes Subjective Information Pt seen for Nutrition Consult (blood glucose level of 255). Pt seen resting in bed while eating lunch w/ son at bedside . Pt appeared over-nourished for ht, c/w anthropometrics and verified by pt. Per son, pt recently moved from a [facility], where she did not follow any diet restrictions. Pt reported "okay" appetite, and denied any difficulty chewing/swallowing. RN reported that pt has been eating 50-60% on average. RD encouraged pt to try to increase PO intakes for adequate nutrition for wound healing. Pt may benefit from Boost Glucose Control oral supplement. Pt was interested in strawberry-flavored oral supplement. RD to notify [facility] staff. RD communicated w/ RN regarding RD rec for Boost Glucose Control BID; RN paged attending MD; awaiting orders. Pt is not yet meeting optimal nutritional needs. Pt declined nutrition education. Current Diet Order/ Nutrition Support [facility] Patient / S.O Can Pertinent Medications colace, pepcid, iron, lasix, insulin aspart, levemir, culturelle, senna, VIT B complex w/ VIT C Pertinent Labs BG 179 H, POC BG 165 H, BUN 38 H, Triglycerides 191 H, H/H 10/6 L/31/3 L, LDL 68 L Nutritional Hx/Data Height 1.57 m Height (Calculated Centimeters) 157.5 Current Weight (lbs) 102.058 kg Weight (Calculated Kilograms) 102.1 Weight (Calculated Grams) 863845.3 Usual body Weight (lbs) 223 % Usual Body Weight 101 [place] Body Weight 110 lb, 50 kg. Adj IBW ( obesity): 139 lb, 63 kg % [place] Body Weight 204 Recent Weight Change No Weight Status Obese GI Symptoms GI Symptoms None Food Allergies No Usual diet at home Regular Skin Integrity/Comment: [place]: 13; diabetic ulcer L heel noted; redness to back/ perineal per RN Current %PO Fair (50-74%) Estimated Nutritional Goals BEE in Kcals: Adj wt of IBW Calories/Kcals/Kg 30-35 kcal/kg Adj IBW (wound healing) Kcals Calculated 6960-1892 kcal/day Protein: Adj wt of IBW Protein g/k.2-1.5 gm/kg Adj IBW (wound healing) Protein Calculated 76-95 gm/day Fluid: ml 3 L/day (30 ml/kg CBW for wound healing, dehydration) Nutritional Problem 1. Problem Problem Increased nutritional needs Etiology related to metabolic demands Signs/Symptoms: as evidenced by estimated nutritional requirements for wound healing. Malnutrition Related to Morbid Obesity Malnutrition related to morbid obesity Weight 200% of ideal wt Query Text:(Any 1 Criteria met) Malnutrition related to morbid obesity Yes Intervention/Recommendation Recommendations by RD Increase Calorie Intake Protein supplementation Comments * [facility], Boost Glucose Control BID (oral supplement provides an additional 500 kcal/day and 28 gm protein/day) Expected Outcomes/Goals Expected Outcomes/Goals - Monitor appetite and PO intakes w/ goal of pt meeting at least 75% of estimated nutritional needs, labs trending WNL, normal GI function, and skin integrity/ wt maintenance within 3-5 days
[2017-03-01] MEDS: Insulin Detemir 100 units/mL 10mL Vial SUBQ SCH (17:21)
--- NOTE | 2017-03-02 14:58 | Pathology Report ---
[id number] Collection Date: 02/28/2017 Surgeon: Dr. Elisha Yan Specimen Description: Debrided tissue, left heel ulcer Gross Description: Received in formalin are three irregular excisions of thin [place] skin, ranging from 0.6 to 1.8 cm in greatest dimension. These superficial excisions of skin range from 0.1 to 0.2 cm in thickness and show areas of reddish discoloration. [employer] sections are submitted in one cassette. Microscopic Description: The histologic sections show superficial hyperkeratotic skin with areas of hemorrhage and necrosis. There are also areas of chronic inflammation consisting of lymphocytes and plasma cells with associated granulation tissue and scarring. Diagnosis: Degenerated hyperkeratotic skin consistent with debridement, left heel. [facility]# [id number]
--- NOTE | 2017-03-03 21:55 | Discharge Summary ---
DATE OF DISCHARGE: 03/01/2017 INITIAL DIAGNOSES: Complicated left heel ulcer, rule out osteomyelitis, history of diabetes type 2, hypertension, and urinary tract infection. The patient was treated for all of that and ID doctor saw the patient. Dr. Berto Tejada and Dr. Yan saw the patient, and the patient had debridement and also had arterial studies done. She has severe atherosclerotic heart disease and peripheral vascular disease in her left superficial and deep femoral arteries and the vascular surgeon felt that she is not a candidate for bypass. The patient was still having ulcer and osteomyelitis. PLAN: Continuation of care and continuation of debridement. Continue IV antibiotics. The patient was transferred to [facility] where I will be following the patient. CONDITION AT THE TIME OF DISCHARGE: Stable. JOB# [id number]
== END 2017-03-01 22:30 | DRG 623 ==
LOC: ER 16:24 → TELE 19:45 → MSI 02-23 12:23 → TELE 02-28 10:28
PROVIDERS: ADMIT Internal Medicine; ATTEND Internal Medicine
PROC: 0JBR0ZZ Excision of Left Foot Subcutaneous Tissue and Fascia, Open Approach (ICD-10-PCS; principal; 2017-02-28)
DX: E11.621 Type 2 diabetes mellitus with foot ulcer (principal); M86.672 Other chronic osteomyelitis, left ankle and foot; N17.0 Acute kidney failure with tubular necrosis; E87.1 Hypo-osmolality and hyponatremia; N39.0 Urinary tract infection, site not specified; Z68.41 Body mass index [BMI] 40.0-44.9, adult; L97.429 Non-pressure chronic ulcer of left heel and midfoot with unspecified severity; M86.68 Other chronic osteomyelitis, other site; E11.51 Type 2 diabetes mellitus with diabetic peripheral angiopathy without gangrene; E11.65 Type 2 diabetes mellitus with hyperglycemia; R00.1 Bradycardia, unspecified; I10 Essential (primary) hypertension; I25.10 Atherosclerotic heart disease of native coronary artery without angina pectoris; E78.5 Hyperlipidemia, unspecified; Z66 Do not resuscitate; I77.1 Stricture of artery; E66.9 Obesity, unspecified; E86.0 Dehydration; D50.9 Iron deficiency anemia, unspecified; K21.9 Gastro-esophageal reflux disease without esophagitis; B96.1 Klebsiella pneumoniae [K. pneumoniae] as the cause of diseases classified elsewhere; B96.22 Other specified Shiga toxin-producing Escherichia coli [E. coli] [STEC] as the cause of diseases classified elsewhere; I70.202 Unspecified atherosclerosis of native arteries of extremities, left leg; E11.69 Type 2 diabetes mellitus with other specified complication; Z83.3 Family history of diabetes mellitus; Z82.49 Family history of ischemic heart disease and other diseases of the circulatory system; Z86.73 Personal history of transient ischemic attack (TIA), and cerebral infarction without residual deficits; Z79.82 Long term (current) use of aspirin; Z79.51 Long term (current) use of inhaled steroids; Z79.4 Long term (current) use of insulin; Y92.89 Other specified places as the place of occurrence of the external cause
CPT/HCPCS: 36415-UA; 71010-TC; 73701-TC-LT; 78315-TC; 80048-TC; 80053-TC; 80061-TC; 81001-TC; 82550-TC; 82948-90; 83036-90; 83605; 83880-TC; 84443-TC; 84484-TC; 85007-TC; 85025-TC; 85027-TC; 85610-TC; 85652-TC; 85730-TC; 86141-TC; 87070-90; 87086-90; 88304-TC; 93005; 93926-LT-TC; 94760; A9503; J0696; J1644; J1815; J2270; J7030; Q9967; X5790; Z7610

== ENCOUNTER 2017-03-25 15:33 | Inpatient (IN) | payer MEDICARE ==
--- NOTE | 2017-03-25 16:01 | ED Physician Chart ---
ED Chief Complaint/HPI - Patient Information Date Seen:: 03/25/17 Time Seen:: 15:48 Chief Complaint:: ELEVATED BLOOD GLUCOSE ABOVE ACCUCHECK SENSATIVITY. History of Present Illness:: THIS PATIENT HAS TYPE 2 INSULIN DEPENDENT DIABETES. IN LATE FEB PT HAD DIAGNOSIS OF DEEP LT LOWER EXTREMITY INFECTION WITH SURGICAL DEBRIDEMENT. The patient was hospitalized here at that time for a period of 3 weeks and then transferred to see a review for what was thought to be continued IV antibiotics. Has had no recent fever, chills or diaphoresis. Patient has had increased pain in the region of the left leg but underwent surgery. Repeat Accu -Cheks showed the patient had marked elevation of the blood glucose. Patient is having difficulty sleeping because of pain in the region of the prior surgery. Allergies:: Allergies Allergy/AdvReac Type Severity Reaction Status Date / Time No Known Allergies Allergy Verified 02/22/17 16:59 Historian:: Family Member Review:: Nurse's Note Reviewed (NURSING TIAGE NOTES.) ED Review of Systems - Review of Systems General/Constitutional: No fever, No chills, Weakness, No diaphoresis, No edema Skin: No rash, No bruising Head: No headache, No light-headedness Eyes: No loss of vision, No diplopia ENT: Nasal drainage, No sore throat, No tinnitus Neck: No neck pain, No stiffness, No mass noted Cardio Vascular: No chest pain, No palpitations, No edema Pulmonary: No SOB, No cough, No sputum, No wheezing GI: No nausea, No vomiting, No diarrhea, No pain G/U: No dysuria, No frequency Musculoskeletal: Bone or joint pain, No back pain, No muscle pain Endocrine: No polyuria, No polydipsia Psychiatric: No prior psych history, No suicidal ideation Hematopoietic: No bruising, No lymphadenopathy Allergic/Immuno: No urticaria, No angioedema Neurological: No syncope, No focal symptoms, Paresthesia, No paresthesia, No headache, No seizure, No confusion Family Medical History - Family Member Daughter History Unknown: Yes Hx Family Cancer: No Hx Family Coronary Artery Disease: No Hx Family Congestive Heart Failure: No Hx Family Hypertension: No Hx Family Stroke: No Hx Family Diabetes: No Hx Family HIV: No Hx Family Hepatitis: No Hx Family Psychiatric Problems: No ED Physical Exam - Physical Examination General/Constitutional: Awake, Well-developed, well-nourished, Alert, No distress, Non-toxic appearing Other Gen/Cons comments:: Appears pale. Head: Atraumatic Eyes: Lids, conjuctiva normal, PERRL, EOMI Skin: No rash (the patient has a recent surgical scar in the lower left extremity which appears to be healing well with no associated erythema, swelling or warmth. Patient also has a half-dollar size ulceration on the heel of the left foot. There is no exudate from this lesion.) ENMT: External ears, nose nl, Lips, teeth, gums nl, Oropharynx nl, Tonsils nl Neck: Nontender, No JVD, No nuchal rigidity, No mass, No stridor Respiratory: Nl effort/Exclusion, Clear to Auscultation, No Wheeze/Rhonchi/Rales Cardio Vascular: RRR, No murmur, gallop, rubs, NL S1 S2 GI: No tenderness/rebounding/guarding, No organomegaly, No hernia, Normal BS's, Nondistended, No mass/bruits, No McBurney tenderness Other GI comments:: Rectal exam deferred at my discretion. : No CVA tenderness Extremities: No tenderness or effusion, normal strength in all extremities, No edema Neuro/Psych: Alert/oriented, Normal sensory exam, Judgement/insight normal, Mood normal Misc: Normal back, No paraspinal tenderness ED Labs/Radiology/EKG Results - Lab Results Results: Laboratory Results - last 24 hr 03/25/17 03/25/17 03/25/17 15:04 15:47 16:00 WBC 5.7 D RBC 3.33 L Hgb 9.5 L Hct 29.1 L MCV 87.2 MCH 28.5 MCHC Differential 32.7 RDW 14.0 Plt Count 242 D MPV 8.5 Neutrophils % 48.2 Lymphocytes % 38.5 Monocytes % 6.9 Eosinophils % 5.5 H Basophils % 0.9 Sodium Potassium Chloride Carbon Dioxide Anion Gap BUN Creatinine Est GFR ( Amer) Est GFR (Non-Af Amer) BUN/Creatinine Ratio Glucose POC Glucose 439 H Hemoglobin A1c % Whole Bld Lactic Acid Calcium Total Bilirubin AST ALT Alkaline Phosphatase Total Protein Albumin Globulin Albumin/Globulin Ratio Urine Source RANDOM Urine Color YELLOW Urine Clarity SLIGHTLY HAZY Urine pH 5.5 Ur Specific [place] 1.020 Urine Protein 100 H Urine Glucose (UA) >=1000 H Urine Ketones NEGATIVE Urine Blood TRACE Urine Nitrate NEGATIVE Urine Bilirubin NEGATIVE Urine Urobilinogen 0.2 Ur Leukocyte Esterase NEGATIVE Urine RBC 2-5 Urine WBC 0-2 Ur Epithelial Cells OCCASIONAL Amorphous Sediment MANY URATES Urine Bacteria 1+ H Serum Ketones 03/25/17 03/25/17 03/25/17 16:00 16:00 16:00 WBC RBC Hgb Hct MCV MCH MCHC Differential RDW Plt Count MPV Neutrophils % Lymphocytes % Monocytes % Eosinophils % Basophils % Sodium 129 L Potassium 4.3 Chloride 98 Carbon Dioxide 25.1 Anion Gap 10.2 BUN 30 H Creatinine 0.9 Est GFR ( Amer) TNP Est GFR (Non-Af Amer) TNP BUN/Creatinine Ratio 33.3 Glucose 464 H* POC Glucose Hemoglobin A1c % 9.8 H Whole Bld Lactic Acid 1.84 Calcium 10.4 H Total Bilirubin 0.3 AST 12 L ALT 18 Alkaline Phosphatase 137 H Total Protein 7.0 Albumin 3.3 L Globulin 3.7 Albumin/Globulin Ratio 0.9 L Urine Source Urine Color Urine Clarity Urine pH Ur Specific [place] Urine Protein Urine Glucose (UA) Urine Ketones Urine Blood Urine Nitrate Urine Bilirubin Urine Urobilinogen Ur Leukocyte Esterase Urine RBC Urine WBC Ur Epithelial Cells Amorphous Sediment Urine Bacteria Serum Ketones NEGATIVE Moderate hyperglycemia without associated ketosis or acidosis. ED Septic Shock - . Is Septic Shock (SBP<90, OR Lactate>4 mmol\L) present?: No ED Reassessment (Disposition) - Reassessment Reassessment Condition:: Improved - Aftercare/Follow up Instructions Aftercare/Follow-Up Instructions:: Counseled pt regarding lab results/diagnosis & need follow up - Patient Disposition Discharge/Transfer:: Acute Care w/in this hosp Accepting Physician:: DR. MARTINEZ. WILL ADMIT FOR RE-EVALUATION OF POSSIBLE OSTEO. ED Discharge Plan - Patient Disposition Admit/Discharge/Transfer: Acute Care w/in this hosp
[2017-03-25 16:13] LABS: % BASOPHILS 0.9 % (0.0-2.0); % EOSINOPHILS 5.5 % (0.0-5.0); % LYMPHOCYTES 38.5 % (20.0-50.0); % MONOCYTES 6.9 % (2.0-10.0); % NEUTROPHILS 48.2 % (40.0-80.0); HEMATOCRIT 29.1 % (41.0-60); HEMOGLOBIN 9.5 gm/dL (12-16); MEAN CELL VOLUME 87.2 fl (81-100); MEAN CORPUSCULAR HEMOGLOBIN 28.5 pg (27.0-31.0); MEAN CORPUSCULAR HGB CONC 32.7 pg (28.0-36.0); MEAN PLATELET VOLUME 8.5 fl; NEUTROPHILE ABSOLUTE 2.7 Th/cmm (1.8-8.0); PLATELET COUNT 242 Th/cmm (150-400); RED BLOOD COUNT 3.33 Mil/cmm (3.80-5.20); WHITE BLOOD COUNT 5.7 Th/cmm (4.8-10.8)
[2017-03-25 16:28] LABS: ALB/GLOB RATIO 0.9 (1.0-1.8); ALKALINE PHOSPHATASE 137 U/L (34-104); ANION GAP 10.2 (7.0-16.0); BILIRUBIN,TOTAL 0.3 mg/dL (0.3-1.0); BUN - UREA NITROGEN 30 mg/dL (7-25); BUN/CREATININE RATIO 33.3; CALCIUM SERUM 10.4 mg/dL (8.6-10.3); CARBON DIOXIDE 25.1 mEq/L (21.0-31.0); CHLORIDE 98 mEq/L (98-107); CREATININE - SERUM 0.9 mg/dL (0.6-1.2); POTASSIUM SERUM 4.3 mEq/L (3.5-5.1); SGOT 12 U/L (13-39); SGPT/ALT 18 U/L (7-52); SODIUM SERUM 129 mEq/L (136-145)
[2017-03-25 16:44] LABS: GLUCOSE 464 mg/dL (70-105)
[2017-03-25] MEDS ORDERED: Sodium Chloride 0.9% 2,000 ML IV ONE (16:57)
[2017-03-25 17:28] LABS: URINE BILIRUBIN NEGATIVE (NEGATIVE); URINE BLOOD TRACE (NEGATIVE); URINE COLOR YELLOW; URINE GLUCOSE (UA) >=1000 mg/dL (NEGATIVE); URINE KETONE NEGATIVE (NEGATIVE); URINE PH 5.5 (4.6 - 8.0)
[2017-03-25 17:29] LABS: URINE AMORPHOUS SEDIMENT MANY URATES (NONE SEEN); URINE BACTERIA 1+ /hpf (NONE SEEN); URINE EPITHELIAL CELLS OCCASIONAL /lpf (FEW); URINE PROTEIN 100 mg/dL (NEGATIVE); URINE UROBILINOGEN 0.2 E.U./dL (0.2 - 1.0); URINE WBC 0-2 /hpf (0-5)
[2017-03-25 20:26] VITALS: BP 138/55
[2017-03-25] MEDS: Sodium Chloride 0.9% 1,000 ML IV SCH (20:51)
[2017-03-25] MEDS ORDERED: Pneumococcal Vaccine 0.5 mL Vial IM ONE (23:31)
[2017-03-25] MEDS: INSULIN ASPART SLIDING SCALE 100 UNITS/ML UNIT SUBQ SCH (23:37)
[2017-03-26 05:13] LABS: % BASOPHILS 0.4 % (0.0-2.0); % EOSINOPHILS 5.7 % (0.0-5.0); % LYMPHOCYTES 46.2 % (20.0-50.0); % MONOCYTES 6.7 % (2.0-10.0); HEMATOCRIT 24.7 % (41.0-60); MEAN CELL VOLUME 86.3 fl (81-100); MEAN CORPUSCULAR HEMOGLOBIN 28.1 pg (27.0-31.0); MEAN CORPUSCULAR HGB CONC 32.5 pg (28.0-36.0); MEAN PLATELET VOLUME 8.2 fl; NEUTROPHILE ABSOLUTE 2.3 Th/cmm (1.8-8.0); PLATELET COUNT 199 Th/cmm (150-400); RED BLOOD COUNT 2.86 Mil/cmm (3.80-5.20); WHITE BLOOD COUNT 5.5 Th/cmm (4.8-10.8)
[2017-03-26 05:28] LABS: ALB/GLOB RATIO 0.9 (1.0-1.8); ALKALINE PHOSPHATASE 106 U/L (34-104); ANION GAP 8.1 (7.0-16.0); BILIRUBIN,TOTAL 0.2 mg/dL (0.3-1.0); BUN - UREA NITROGEN 25 mg/dL (7-25); BUN/CREATININE RATIO 31.3; CALCIUM SERUM 9.2 mg/dL (8.6-10.3); CARBON DIOXIDE 23.9 mEq/L (21.0-31.0); CHLORIDE 106 mEq/L (98-107); CREATININE - SERUM 0.8 mg/dL (0.6-1.2); SGOT 11 U/L (13-39); SGPT/ALT 14 U/L (7-52); SODIUM SERUM 134 mEq/L (136-145)
[2017-03-26] MEDS: Sodium Chloride 0.9% 1,000 ML IV SCH ×2 (05:57→19:28)
[2017-03-26] MEDS: INSULIN ASPART SLIDING SCALE 100 UNITS/ML UNIT SUBQ SCH ×5 (06:45→20:57)
[2017-03-26 06:46] LABS: GLUCOSE 338 mg/dL (70-105)
[2017-03-26] MEDS: Ferrous Sulfate 325 MG TAB PO SCH (08:56)
[2017-03-26] MEDS: Aspirin 81mg Chewable Tab PO SCH (08:57)
[2017-03-26] MEDS: Insulin Detemir 100 units/mL 10mL Vial SUBQ SCH ×2 (08:59→17:12)
[2017-03-26] MEDS ORDERED: FERROUS SULFATE PO SCH (09:00)
[2017-03-26] MEDS ORDERED: Insulin Detemir 100 units/mL 10mL Vial SUBQ SCH (09:00)
[2017-03-26 10:09] LABS: HEP B CORE IGM Negative (Negative)
[2017-03-26] MEDS ORDERED: Morphine Sulfate 2 mg/mL 1mL Syr IM PRN (17:53)
[2017-03-26] MEDS ORDERED: Morphine Sulfate 2 mg/mL 1mL Syr IVP PRN (17:57)
--- NOTE | 2017-03-26 19:42 | History & Physical ---
ADMIT DATE: 03/25/2017 HISTORY OF PRESENT ILLNESS: The patient is very well known to me. The patient was in [facility]. Apparently, the patient's blood sugar went very high and was also complaining of pain in her legs and the ulceration. The patient was referred to [facility]. The patient was evaluated and found to have very high sugar and low sodium, also possible infection on her foot. The patient was admitted and the patient known to have history of diabetes. The patient has left lower extremity infection, has had surgical debridement in the past, complains of severe pain and marked elevation in the blood sugar and the patient also has some insomnia because of the pain. PAST MEDICAL HISTORY: History of diabetes, history of right foot ulcer, history of peripheral vascular disease and history of osteomyelitis. REVIEW OF SYSTEMS: No fever, no chills. No rash, no headache, no nasal discharge and no vomiting. FAMILY HISTORY: Unremarkable. PHYSICAL EXAMINATION: GENERAL: Atraumatic, elderly female, complaining of severe pain to her foot. HEAD: Normal. ENT: Normal. LUNGS: Clear. CARDIOVASCULAR SYSTEM: S1, S2 heard. ABDOMEN: Soft. Bowel sounds are heard. CENTRAL NERVOUS SYSTEM: Little confused. LABORATORY DATA: White count was little bit on the lower side 5.9. Her hemoglobin was low 9.5 and hematocrit was 29 and patient's platelet count was 242 and patient's glucose was 439 and she had trace blood as well as occasional epithelial cells and her proteinuria and the patient's sodium was down to 129 and the patient's BUN was high indicating prerenal azotemia 30 and patient's GFR was also low. DIAGNOSES: Diabetes, uncontrolled; hyperglycemia; right foot ulcer, rule out osteomyelitis; hyponatremia; prerenal azotemia ____. PLAN: The patient is being admitted and I will go ahead and give her fluids and antibiotics. I will have Dr. Berto Tejada, ID doctor see the patient and I will also follow the patient and also we will have Dr. Izaguirre to reevaluate her foot ulcer and to see whether the patient needs further debridement. JOB# [id number]
[2017-03-27 06:01] LABS: % BASOPHILS 0.4 % (0.0-2.0); % EOSINOPHILS 6.1 % (0.0-5.0); % LYMPHOCYTES 45.2 % (20.0-50.0); % MONOCYTES 5.4 % (2.0-10.0); % NEUTROPHILS 42.9 % (40.0-80.0); HEMATOCRIT 27.1 % (41.0-60); HEMOGLOBIN 8.9 gm/dL (12-16); MEAN CELL VOLUME 86.7 fl (81-100); MEAN CORPUSCULAR HEMOGLOBIN 28.4 pg (27.0-31.0); MEAN CORPUSCULAR HGB CONC 32.7 pg (28.0-36.0); NEUTROPHILE ABSOLUTE 2.7 Th/cmm (1.8-8.0); PLATELET COUNT 230 Th/cmm (150-400); RED BLOOD COUNT 3.13 Mil/cmm (3.80-5.20); WHITE BLOOD COUNT 6.4 Th/cmm (4.8-10.8)
[2017-03-27] MEDS: Sodium Chloride 0.9% 1,000 ML IV SCH ×3 (06:03→22:42)
[2017-03-27 07:05] LABS: ANION GAP 8.2 (7.0-16.0); BUN - UREA NITROGEN 16 mg/dL (7-25); CALCIUM SERUM 9.1 mg/dL (8.6-10.3); CARBON DIOXIDE 22.8 mEq/L (21.0-31.0); CHLORIDE 106 mEq/L (98-107); CREATININE - SERUM 0.8 mg/dL (0.6-1.2); GLUCOSE 231 mg/dL (70-105); SODIUM SERUM 133 mEq/L (136-145)
[2017-03-27] MEDS: Ferrous Sulfate 325 MG TAB PO SCH (08:50)
[2017-03-27] MEDS: Aspirin 81mg Chewable Tab PO SCH (08:51)
[2017-03-27] MEDS: Insulin Detemir 100 units/mL 10mL Vial SUBQ SCH ×2 (08:56→21:22)
[2017-03-27] MEDS: INSULIN ASPART SLIDING SCALE 100 UNITS/ML UNIT SUBQ SCH ×6 (12:20→21:21)
--- NOTE | 2017-03-27 13:49 | General Progress Note ---
Subjective - Review of Systems Service Date: 03/27/17 Events since last encounter: claims pain left foot and heel claims she has had 2 debridement and ulcer skin graft left heel in [place] (? ) Objective - Results Result Diagrams: 03/27/17 05:20 03/27/17 05:20 Recent Labs: Laboratory Last Values WBC 6.4 Th/cmm (4.8-10.8) 03/27/17 05:20 RBC 3.13 Mil/cmm (3.80-5.20) L 03/27/17 05:20 Hgb 8.9 gm/dL (12-16) L 03/27/17 05:20 Hct 27.1 % (41.0-60) L 03/27/17 05:20 MCV 86.7 fl (81-100) 03/27/17 05:20 MCH 28.4 pg (27.0-31.0) 03/27/17 05:20 MCHC Differential 32.7 pg (28.0-36.0) 03/27/17 05:20 RDW 14.0 % (11.5-20.0) 03/27/17 05:20 Plt Count 230 Th/cmm (150-400) 03/27/17 05:20 MPV 8.0 fl 03/27/17 05:20 Neutrophils % 42.9 % (40.0-80.0) 03/27/17 05:20 Lymphocytes % 45.2 % (20.0-50.0) 03/27/17 05:20 Monocytes % 5.4 % (2.0-10.0) 03/27/17 05:20 Eosinophils % 6.1 % (0.0-5.0) H 03/27/17 05:20 Basophils % 0.4 % (0.0-2.0) 03/27/17 05:20 Sodium 133 mEq/L (136-145) L 03/27/17 05:20 Potassium 4.0 mEq/L (3.5-5.1) 03/27/17 05:20 Chloride 106 mEq/L (98-107) 03/27/17 05:20 Carbon Dioxide 22.8 mEq/L (21.0-31.0) 03/27/17 05:20 Anion Gap 8.2 (7.0-16.0) 03/27/17 05:20 BUN 16 mg/dL (7-25) 03/27/17 05:20 Creatinine 0.8 mg/dL (0.6-1.2) 03/27/17 05:20 Est GFR ( Amer) TNP 03/27/17 05:20 Est GFR (Non-Af Amer) TNP 03/27/17 05:20 BUN/Creatinine Ratio 20.0 03/27/17 05:20 Glucose 231 mg/dL (70-105) H 03/27/17 05:20 POC Glucose 323 MG/DL (70 - 105) H 03/27/17 11:49 Hemoglobin A1c % 9.8 % (4.0-6.0) H 03/25/17 16:00 Whole Bld Lactic Acid 1.84 mmol/L (0.60-1.99) 03/25/17 16:00 Calcium 9.1 mg/dL (8.6-10.3) 03/27/17 05:20 Total Bilirubin 0.2 mg/dL (0.3-1.0) L 03/26/17 04:35 AST 11 U/L (13-39) L 03/26/17 04:35 ALT 14 U/L (7-52) 03/26/17 04:35 Alkaline Phosphatase 106 U/L (34-104) H 03/26/17 04:35 Total Protein 5.5 gm/dL (6.0-8.3) L 03/26/17 04:35 Albumin 2.6 gm/dL (3.7-5.3) L 03/26/17 04:35 Globulin 2.9 gm/dL 03/26/17 04:35 Albumin/Globulin Ratio 0.9 (1.0-1.8) L 03/26/17 04:35 Urine Source RANDOM 03/25/17 15:04 Urine Color YELLOW 03/25/17 15:04 Urine Clarity SLIGHTLY HAZY (CLEAR) 03/25/17 15:04 Urine pH 5.5 (4.6 - 8.0) 03/25/17 15:04 Ur Specific [place] 1.020 (1.005-1.030) 03/25/17 15:04 Urine Protein 100 mg/dL (NEGATIVE) H 03/25/17 15:04 Urine Glucose (UA) >=1000 mg/dL (NEGATIVE) H 03/25/17 15:04 Urine Ketones NEGATIVE mg/dL (NEGATIVE) 03/25/17 15:04 Urine Blood TRACE (NEGATIVE) 03/25/17 15:04 Urine Nitrate NEGATIVE (NEGATIVE) 03/25/17 15:04 Urine Bilirubin NEGATIVE (NEGATIVE) 03/25/17 15:04 Urine Urobilinogen 0.2 E.U./dL (0.2 - 1.0) 03/25/17 15:04 Ur Leukocyte Esterase NEGATIVE (NEGATIVE) 03/25/17 15:04 Urine RBC 2-5 /hpf (0-5) 03/25/17 15:04 Urine WBC 0-2 /hpf (0-5) 03/25/17 15:04 Ur Epithelial Cells OCCASIONAL /lpf (FEW) 03/25/17 15:04 Amorphous Sediment MANY URATES (NONE SEEN) 03/25/17 15:04 Urine Bacteria 1+ /hpf (NONE SEEN) H 03/25/17 15:04 Vancomycin Trough 21.6 ug/mL (10-20) H 03/27/17 09:00 Serum Ketones NEGATIVE (NEGATIVE) 03/25/17 16:00 Hepatitis A IgM Ab Negative (Negative) 03/25/17 17:12 Hep Bs Antigen Negative (Negative) 03/25/17 17:12 Hep B Core IgM Ab Negative (Negative) 03/25/17 17:12 Hepatitis C Antibody 0.1 s/co ratio (0.0-0.9) 03/25/17 17:12 - Physical Exam Vitals and I&O: Vital Signs Temp 98.0 F 03/27/17 11:56 Pulse 83 03/27/17 11:56 Resp 18 03/27/17 11:56 BP 190/79 03/27/17 11:56 Pulse Ox 97 03/27/17 11:56 Intake & Output 03/26/17 03/27/17 03/27/17 18:59 06:59 18:59 Intake Total 1600 1560 426.667 Output Total 1 Balance 1600 1559 426.667 Weight (lbs) 99.79 kg 99.337 kg Intake: Intake, IV Amount 1000 1500 426.667 Sodium Chloride 0.9% 1, 1000 1000 426.667 000 ml @ 100 mls/hr IV . Q10H [facility] Rx#:[id number] Vancomycin HCl 1 gm In 500 Sodium Chloride 0.9% 250 ml @ 165 mls/hr IV Q12H [facility] Rx#:[id number] Oral 600 60 Output: Urine/Stool Mix 1 Other: # Voids 4 # Bowel Movements 2 Stool Characteristics Soft Soft Active Medications: Current Medications Acetaminophen (Tylenol) 325 mg PO Q4HR PRN PRN Reason: Pain (Mild) Stop: 05/24/17 20:14 Last Admin: 03/26/17 17:10 Dose: 325 mg Acetaminophen (Tylenol) 650 mg PO Q6H PRN PRN Reason: TEMP >101 Stop: 05/24/17 20:43 Last Admin: 03/27/17 01:00 Dose: 650 mg Amlodipine Besylate (Norvasc) 5 mg PO DAILY [facility] Stop: 05/25/17 08:59 Last Admin: 03/27/17 08:51 Dose: 5 mg Aspirin (Aspirin Chewable) 81 mg PO DAILY [facility] Stop: 05/25/17 08:59 Last Admin: 03/27/17 08:51 Dose: 81 mg Bisacodyl (Dulcolax 10 Mg Supp) 10 mg RC DAILY PRN PRN Reason: Constipation Stop: 05/24/17 20:14 Clopidogrel Bisulfate (Plavix) 75 mg PO DAILY [facility] Stop: 05/25/17 08:59 Last Admin: 03/27/17 08:51 Dose: 75 mg Docusate Sodium (Colace) 100 mg PO BID [facility] Stop: 05/25/17 08:59 Last Admin: 03/27/17 08:51 Dose: 100 mg Ferrous Sulfate (Iron) 325 mg PO DAILY [facility] Stop: 05/25/17 08:59 Last Admin: 03/27/17 08:50 Dose: 325 mg Furosemide (Lasix) 40 mg PO DAILY [facility] Stop: 05/25/17 08:59 Last Admin: 03/27/17 08:50 Dose: 40 mg Sodium Chloride (Nacl 0.9%) 1,000 mls @ 100 mls/hr IV .Q10H [facility] Stop: 05/24/17 20:14 Last Admin: 03/27/17 10:19 Dose: 100 mls/hr Vancomycin HCl 1 gm/ Sodium (Chloride) 250 mls @ 165 mls/hr IV Q12H [facility] Stop: 05/25/17 09:59 Last Admin: 03/27/17 10:19 Dose: 165 mls/hr Insulin Aspart (Novolog Insulin Sliding Scale) 0 units SUBQ ACHS VEE PRN Reason: Protocol Stop: 05/24/17 20:59 Last Admin: 03/27/17 12:26 Dose: 9 units Insulin Detemir (Levemir Insulin) 30 units SUBQ HS [facility] PRN Reason: Protocol Stop: 05/26/17 20:59 Insulin Detemir (Levemir Insulin) 15 units SUBQ DAILY [facility] PRN Reason: Protocol Stop: 05/27/17 08:59 Lisinopril (Zestril) 10 mg PO Q12HR [facility] Stop: 05/26/17 20:59 Lisinopril (Zestril) 5 mg PO X1 ONE Stop: 03/28/17 14:01 Miscellaneous (Vancomycin Iv Per Pharmacy) 1 ea MC DAILY [facility] Stop: 03/28/17 19:59 Morphine Sulfate (Morphine) 1 mg IM Q3HR PRN PRN Reason: Pain (Moderate) Stop: 05/25/17 17:52 Morphine Sulfate (Morphine) 2 mg IVP Q3HR PRN PRN Reason: Pain (Severe) Stop: 05/25/17 17:56 Ondansetron HCl (Zofran) 4 mg IV Q6H PRN PRN Reason: Nausea / Vomiting Stop: 05/25/17 18:24 Senna (Senna) 8.6 mg PO [facility] Stop: 05/24/17 20:59 Last Admin: 03/26/17 20:57 Dose: 8.6 mg - Procedures Procedures: Procedures Procedure Code Date EXCISION OF L FOOT SUBCU/FASCIA, OPEN APPROACH [id number] 02/22/17 PARTIAL REMOVAL FOOT FASCIA 86568 02/22/17 Assessment/Plan - Problem List Patient Problems: All Active Problems HYPERGLYCEMIA (Acute) H/O recurrent urinary tract infection (Acute) Z87.440 H/O type 2 diabetes mellitus (Acute) Z86.39 H/O: HTN (hypertension) (Acute) Z86.79 Nonhealing ulcer of heel (Acute) L97.409 r/o osteomyelitis (Acute) Nutritional Asmnt/Malnutr-PDOC - Dietary Evaluation Malnutrition Findings (Please click <Entered> for more info): Nutritional Asmnt/Malnutrition Start: 03/27/17 12: 55 Text: Status: Complete Freq: Document 03/27/17 12:55 LCHENG (Rec: 03/27/17 13:15 [email or web address] [email or web address]) Nutritional Asmnt/Malnutrition Patient General Information Nutritional Screening High Risk Consult Diagnosis uncontrolled diabetes, osteomylitis Pertinent Medical Hx/Surgical Hx DM, right foot ulcer, peripheral vascular diseas, osteomyelitis Subjective Information Consult for high blood sugar received. Pt is 72 yo female from SNF admitted for high blood sugar. Pt seen alert in bed, does not want to talk much during the time of visit. Pt reported she does not eat breakfast, usually lunch and dinenr daily. Per notes PO intake 50% of three meals yesterday 03/26. Pt appeared obese, no fat/muscle wasting noted. Current Diet Order/ Nutrition Support [facility] 45gm Pertinent Medications Colace, Iron, Lasix, Novolog, Levemir, Senna, Vancomycin, Nacl IV Pertinent Labs 03/27 Na 133L, K 4.0, Cl 106, BUN 16, Cr 0.8, Glu 231 03/25 Glu 464 POC 306-439 since adm Nutritional Hx/Data Height 1.57 m Height (Calculated Centimeters) 157.5 Current Weight (lbs) 99.337 kg Weight (Calculated Kilograms) 99.3 Weight (Calculated Grams) 43062.7 Usual body Weight (lbs) 220 % Usual Body Weight 100 [place] Body Weight 110 % [place] Body Weight 199 Body Mass Index (BMI) 40.0 Recent Weight Change No Weight Status Morbidly Obese GI Symptoms GI Symptoms None Difficult in: None Cultural/Ethnic/[employer] pt likes soup Usual diet at home skip breakfast, two meals daily Skin Integrity/Comment: skin tear to perineal area, reddened area to buttocks, perineal area and coccyx Current %PO Fair (50-74%) Estimated Nutritional Goals BEE in Kcals: Adj wt of IBW Calories/Kcals/Kg (25-30kcal/kg based on adj wt 137lb/62kg) Kcals Calculated 6840-0492 Protein: Adj wt of IBW Protein g/k-1.2 Protein Calculated 62-74 Fluid: ml 8959-4165 Nutritional Problem 1. Problem Problem altered nutrition related lab values Etiology dx of DM Signs/Symptoms: Glu 464, POC 306-439 Malnutrition Alert Protein-Calorie Malnutrition N/A Is there a minimum of two criteria No selected? Query Text:Check all the applicable criteria. A minimum of two criteria are recommended for diagnosis of either severe or non-severe malnutrition. Intervention/Recommendation Comments 1. Continue with current diet as ordered. Encouraged to follow 3 meals per day, eat breakfast regularly. 2. notified diet kitchen cook that pt likes soup, update food preference 3. Monitor wt weekly, skin integrity, labs, blood sugar, adjust insullin as needed. 4. F/U as moderate risk in 3-5 days, 03/30-04/01 Expected Outcomes/Goals Expected Outcomes/Goals 1. pt will consume 3 meals per day, PO intake to meet at least 75% of nutritional needs 2. blood sugar to improve 3. wt stability 4. skin to improve
--- NOTE | 2017-03-27 20:29 | Consultation ---
DATE OF CONSULTATION: 03/26/2017 INFECTIOUS DISEASE CONSULTATION REFERRING PHYSICIAN: Dr. Morillo. REASON FOR CONSULTATION: Left heel cellulitis. HISTORY OF PRESENT ILLNESS: The patient is a 72-year-old female with a past medical history of diabetes mellitus type 2, hypertension, coronary artery disease, CVA, dyslipidemia, and developed left heel wound few months ago. The patient got a skin graft. The patient also developed left heel wound again, which was not healing. However, she was admitted on 02/23/2017. Besides this, her blood glucose was also elevated. She was discharged in stable condition. Now she comes back again for elevated blood glucose. She also was found to have healing graft heel wound. There is still some redness. ALLERGIES: NKDA. MEDICATIONS: See medication reconciliation sheet. Antibiotic roy, the patient is receiving vancomycin. PAST MEDICAL HISTORY: Includes diabetes mellitus type 2, left heel wound, peripheral vascular disease, hypertension, coronary artery disease, CVA, TIA, and dyslipidemia. FAMILY HISTORY: Unknown. SOCIAL HISTORY: The patient lives in a nursing facility. No history of smoking, alcohol or drug use. PHYSICAL EXAMINATION: VITAL SIGNS: Shows temperature is 98.6, pulse 89, respirations 18, blood pressure 144/82. GENERAL: The patient is comfortable, lying in the bed, not in acute distress. HEENT: Head is normocephalic, atraumatic. Oral cavity moist, pink tongue. Eyes: No pallor, no icterus. Pupils PERRLA, EOMI. NECK: Supple, no JVD, no carotid bruit. Trachea in midline. CHEST: Bilateral breath sounds. No crackles or wheezing. HEART: S1, S2 within normal limits. Regular rhythm. ABDOMEN: Soft, nontender, nondistended. Bowel sounds present. EXTREMITIES: No cyanosis, no clubbing and no edema. Left heel has redness. NEUROLOGIC: Alert and awake. LABORATORY DATA: Current lab shows WBC count is 5500, hemoglobin is 8, hematocrit 24.7, platelets are 199,000. Sodium 134, potassium 4, chloride 106, bicarbonate is 24, BUN is 25, creatinine 0.8, glucose is 338. IMPRESSION: 1. Left heel cellulitis. 2. Uncontrolled diabetes mellitus, type 2. 3. Hypertension. 4. Hyperlipidemia. 5. Obesity. RECOMMENDATIONS: We will continue vancomycin IV at this time and follow up on the clinical status. Thank you, Dr. Morillo for involving me in taking care of this patient. JOB# [id number] [email or web address]
[2017-03-28] MEDS: INSULIN ASPART SLIDING SCALE 100 UNITS/ML UNIT SUBQ SCH ×5 (06:43→22:45)
--- NOTE | 2017-03-28 09:10 | General Progress Note ---
Subjective - Review of Systems Events since last encounter: patient c/o left foot and heel pain no fever Objective - Results Result Diagrams: 03/27/17 05:20 03/27/17 05:20 Recent Labs: Laboratory Last Values WBC 6.4 Th/cmm (4.8-10.8) 03/27/17 05:20 RBC 3.13 Mil/cmm (3.80-5.20) L 03/27/17 05:20 Hgb 8.9 gm/dL (12-16) L 03/27/17 05:20 Hct 27.1 % (41.0-60) L 03/27/17 05:20 MCV 86.7 fl (81-100) 03/27/17 05:20 MCH 28.4 pg (27.0-31.0) 03/27/17 05:20 MCHC Differential 32.7 pg (28.0-36.0) 03/27/17 05:20 RDW 14.0 % (11.5-20.0) 03/27/17 05:20 Plt Count 230 Th/cmm (150-400) 03/27/17 05:20 MPV 8.0 fl 03/27/17 05:20 Neutrophils % 42.9 % (40.0-80.0) 03/27/17 05:20 Lymphocytes % 45.2 % (20.0-50.0) 03/27/17 05:20 Monocytes % 5.4 % (2.0-10.0) 03/27/17 05:20 Eosinophils % 6.1 % (0.0-5.0) H 03/27/17 05:20 Basophils % 0.4 % (0.0-2.0) 03/27/17 05:20 Sodium 133 mEq/L (136-145) L 03/27/17 05:20 Potassium 4.0 mEq/L (3.5-5.1) 03/27/17 05:20 Chloride 106 mEq/L (98-107) 03/27/17 05:20 Carbon Dioxide 22.8 mEq/L (21.0-31.0) 03/27/17 05:20 Anion Gap 8.2 (7.0-16.0) 03/27/17 05:20 BUN 16 mg/dL (7-25) 03/27/17 05:20 Creatinine 0.8 mg/dL (0.6-1.2) 03/27/17 05:20 Est GFR ( Amer) TNP 03/27/17 05:20 Est GFR (Non-Af Amer) TNP 03/27/17 05:20 BUN/Creatinine Ratio 20.0 03/27/17 05:20 Glucose 231 mg/dL (70-105) H 03/27/17 05:20 POC Glucose 210 MG/DL (70 - 105) H 03/28/17 06:42 Hemoglobin A1c % 9.8 % (4.0-6.0) H 03/25/17 16:00 Whole Bld Lactic Acid 1.84 mmol/L (0.60-1.99) 03/25/17 16:00 Calcium 9.1 mg/dL (8.6-10.3) 03/27/17 05:20 Total Bilirubin 0.2 mg/dL (0.3-1.0) L 03/26/17 04:35 AST 11 U/L (13-39) L 03/26/17 04:35 ALT 14 U/L (7-52) 03/26/17 04:35 Alkaline Phosphatase 106 U/L (34-104) H 03/26/17 04:35 Total Protein 5.5 gm/dL (6.0-8.3) L 03/26/17 04:35 Albumin 2.6 gm/dL (3.7-5.3) L 03/26/17 04:35 Globulin 2.9 gm/dL 03/26/17 04:35 Albumin/Globulin Ratio 0.9 (1.0-1.8) L 03/26/17 04:35 Urine Source RANDOM 03/25/17 15:04 Urine Color YELLOW 03/25/17 15:04 Urine Clarity SLIGHTLY HAZY (CLEAR) 03/25/17 15:04 Urine pH 5.5 (4.6 - 8.0) 03/25/17 15:04 Ur Specific [place] 1.020 (1.005-1.030) 03/25/17 15:04 Urine Protein 100 mg/dL (NEGATIVE) H 03/25/17 15:04 Urine Glucose (UA) >=1000 mg/dL (NEGATIVE) H 03/25/17 15:04 Urine Ketones NEGATIVE mg/dL (NEGATIVE) 03/25/17 15:04 Urine Blood TRACE (NEGATIVE) 03/25/17 15:04 Urine Nitrate NEGATIVE (NEGATIVE) 03/25/17 15:04 Urine Bilirubin NEGATIVE (NEGATIVE) 03/25/17 15:04 Urine Urobilinogen 0.2 E.U./dL (0.2 - 1.0) 03/25/17 15:04 Ur Leukocyte Esterase NEGATIVE (NEGATIVE) 03/25/17 15:04 Urine RBC 2-5 /hpf (0-5) 03/25/17 15:04 Urine WBC 0-2 /hpf (0-5) 03/25/17 15:04 Ur Epithelial Cells OCCASIONAL /lpf (FEW) 03/25/17 15:04 Amorphous Sediment MANY URATES (NONE SEEN) 03/25/17 15:04 Urine Bacteria 1+ /hpf (NONE SEEN) H 03/25/17 15:04 Vancomycin Trough 21.6 ug/mL (10-20) H 03/27/17 09:00 Serum Ketones NEGATIVE (NEGATIVE) 03/25/17 16:00 Hepatitis A IgM Ab Negative (Negative) 03/25/17 17:12 Hep Bs Antigen Negative (Negative) 03/25/17 17:12 Hep B Core IgM Ab Negative (Negative) 03/25/17 17:12 Hepatitis C Antibody 0.1 s/co ratio (0.0-0.9) 03/25/17 17:12 - Physical Exam Vitals and I&O: Vital Signs Temp 98.9 F 03/28/17 08:00 Pulse 73 03/28/17 08:00 Resp 18 03/28/17 09:07 BP 149/72 03/28/17 08:00 Pulse Ox 100 03/28/17 08:00 Intake & Output 03/27/17 03/28/17 03/28/17 18:59 06:59 18:59 Intake Total 9799.384 7000 Balance 3306.123 2545 Weight (lbs) 98.883 kg 98.883 kg Intake: Intake, IV Amount 625.974 0820 Sodium Chloride 0.9% 1, 254.070 2105 000 ml @ 100 mls/hr IV . Q10H [facility] Rx#:[id number] Vancomycin HCl 1 gm In 250 Sodium Chloride 0.9% 250 ml @ 165 mls/hr IV Q12H [facility] Rx#:[id number] Oral 720 200 Other: # Voids 4 # Bowel Movements 0 Stool Characteristics Soft Soft Soft Active Medications: Current Medications Acetaminophen (Tylenol) 325 mg PO Q4HR PRN PRN Reason: Pain (Mild) Stop: 05/24/17 20:14 Last Admin: 03/26/17 17:10 Dose: 325 mg Acetaminophen (Tylenol) 650 mg PO Q6H PRN PRN Reason: TEMP >101 Stop: 05/24/17 20:43 Last Admin: 03/27/17 01:00 Dose: 650 mg Amlodipine Besylate (Norvasc) 5 mg PO DAILY [facility] Stop: 05/25/17 08:59 Last Admin: 03/27/17 08:51 Dose: 5 mg Aspirin (Aspirin Chewable) 81 mg PO DAILY [facility] Stop: 05/25/17 08:59 Last Admin: 03/27/17 08:51 Dose: 81 mg Bisacodyl (Dulcolax 10 Mg Supp) 10 mg RC DAILY PRN PRN Reason: Constipation Stop: 05/24/17 20:14 Clopidogrel Bisulfate (Plavix) 75 mg PO DAILY [facility] Stop: 05/25/17 08:59 Last Admin: 03/27/17 08:51 Dose: 75 mg Docusate Sodium (Colace) 100 mg PO BID [facility] Stop: 05/25/17 08:59 Last Admin: 03/27/17 17:26 Dose: 100 mg Ferrous Sulfate (Iron) 325 mg PO DAILY [facility] Stop: 05/25/17 08:59 Last Admin: 03/27/17 08:50 Dose: 325 mg Furosemide (Lasix) 40 mg PO DAILY [facility] Stop: 05/25/17 08:59 Last Admin: 03/27/17 08:50 Dose: 40 mg Sodium Chloride (Nacl 0.9%) 1,000 mls @ 100 mls/hr IV .Q10H [facility] Stop: 05/24/17 20:14 Last Admin: 03/27/17 22:42 Dose: 100 mls/hr Vancomycin HCl 1 gm/ Sodium (Chloride) 250 mls @ 165 mls/hr IV Q12H [facility] Stop: 05/25/17 09:59 Last Admin: 03/27/17 21:18 Dose: 165 mls/hr Insulin Aspart (Novolog Insulin Sliding Scale) 0 units SUBQ ACHS [facility] PRN Reason: Protocol Stop: 05/24/17 20:59 Last Admin: 03/28/17 07:23 Dose: 5 units Insulin Detemir (Levemir Insulin) 30 units SUBQ HS [facility] PRN Reason: Protocol Stop: 05/26/17 20:59 Last Admin: 03/27/17 21:22 Dose: 30 units Insulin Detemir (Levemir Insulin) 15 units SUBQ DAILY [facility] PRN Reason: Protocol Stop: 05/27/17 08:59 Lisinopril (Zestril) 10 mg PO Q12HR [facility] Stop: 05/26/17 20:59 Last Admin: 03/27/17 22:43 Dose: 10 mg Miscellaneous (Vancomycin Iv Per Pharmacy) 1 ea MC DAILY [facility] Stop: 03/28/17 19:59 Morphine Sulfate (Morphine) 1 mg IM Q3HR PRN PRN Reason: Pain (Moderate) Stop: 05/25/17 17:52 Last Admin: 03/27/17 21:13 Dose: 1 mg Morphine Sulfate (Morphine) 2 mg IVP Q3HR PRN PRN Reason: Pain (Severe) Stop: 05/25/17 17:56 Ondansetron HCl (Zofran) 4 mg IV Q6H PRN PRN Reason: Nausea / Vomiting Stop: 05/25/17 18:24 Senna (Senna) 8.6 mg PO HS [facility] Stop: 05/24/17 20:59 Last Admin: 03/27/17 22:43 Dose: 8.6 mg General: No acute distress HEENT: Atraumatic Neck: Thyromegaly Cardiovascular: Normal S1 - Procedures Procedures: Procedures Procedure Code Date EXCISION OF L FOOT SUBCU/FASCIA, OPEN APPROACH [id number] 02/22/17 PARTIAL REMOVAL FOOT FASCIA 58265 02/22/17 Assessment/Plan - Problem List Patient Problems: All Active Problems HYPERGLYCEMIA (Acute) H/O recurrent urinary tract infection (Acute) Z87.440 H/O type 2 diabetes mellitus (Acute) Z86.39 H/O: HTN (hypertension) (Acute) Z86.79 Nonhealing ulcer of heel (Acute) L97.409 r/o osteomyelitis (Acute) - Plan Plan: cpm Nutritional Asmnt/Malnutr-PDOC - Dietary Evaluation Malnutrition Findings (Please click <Entered> for more info): Nutritional Asmnt/Malnutrition Start: 03/27/17 12: 55 Text: Status: Complete Freq: Document 03/27/17 12:55 [email or web address] (Rec: 03/27/17 13:15 [email or web address] [email or web address]) Nutritional Asmnt/Malnutrition Patient General Information Nutritional Screening High Risk Consult Diagnosis uncontrolled diabetes, osteomylitis Pertinent Medical Hx/Surgical Hx DM, right foot ulcer, peripheral vascular diseas, osteomyelitis Subjective Information Consult for high blood sugar received. Pt is 72 yo female from SNF admitted for high blood sugar. Pt seen alert in bed, does not want to talk much during the time of visit. Pt reported she does not eat breakfast, usually lunch and dinenr daily. Per notes PO intake 50% of three meals yesterday 03/26. Pt appeared obese, no fat/muscle wasting noted. Current Diet Order/ [facility] Pertinent Medications Colace, Iron, Lasix, Novolog, Levemir, Senna, Vancomycin, Nacl IV Pertinent Labs 03/27 Na 133L, K 4.0, Cl 106, BUN 16, Cr 0.8, Glu 231 03/25 Glu 464 POC 306-439 since adm Nutritional Hx/Data Height 1.57 m Height (Calculated Centimeters) 157.5 Current Weight (lbs) 99.337 kg Weight (Calculated Kilograms) 99.3 Weight (Calculated Grams) 55869.7 Usual body Weight (lbs) 220 % Usual Body Weight 100 [place] Body Weight 110 % [place] Body Weight 199 Body Mass Index (BMI) 40.0 Recent Weight Change No Weight Status Morbidly Obese GI Symptoms GI Symptoms None Difficult in: None Cultural/Ethnic/Sikh Belief pt likes soup Usual diet at home skip breakfast, two meals daily Skin Integrity/Comment: skin tear to perineal area, reddened area to buttocks, perineal area and coccyx Current %PO Fair (50-74%) Estimated Nutritional Goals BEE in Kcals: Adj wt of IBW Calories/Kcals/Kg (25-30kcal/kg based on adj wt 137lb/62kg) Kcals Calculated 0941-5591 Protein: Adj wt of IBW Protein g/k-1.2 Protein Calculated 62-74 Fluid: ml 2736-6720 Nutritional Problem 1. Problem Problem altered nutrition related lab values Etiology dx of DM Signs/Symptoms: Glu 464, POC 306-439 Malnutrition Alert Protein-Calorie Malnutrition N/A Is there a minimum of two criteria No selected? Query Text:Check all the applicable criteria. A minimum of two criteria are recommended for diagnosis of either severe or non-severe malnutrition. Intervention/Recommendation Comments 1. Continue with current diet as ordered. Encouraged to follow 3 meals per day, eat breakfast regularly. 2. notified chief clinical dietitian that pt likes soup, update food preference 3. Monitor wt weekly, skin integrity, labs, blood sugar, adjust insullin as needed. 4. F/U as moderate risk in 3-5 days, 03/30-04/01 Expected Outcomes/Goals Expected Outcomes/Goals 1. pt will consume 3 meals per day, PO intake to meet at least 75% of nutritional needs 2. blood sugar to improve 3. wt stability 4. skin to improve
[2017-03-28 10:09] LABS: ANION GAP 6.8 (7.0-16.0); BUN - UREA NITROGEN 16 mg/dL (7-25); CALCIUM SERUM 8.8 mg/dL (8.6-10.3); CARBON DIOXIDE 25.1 mEq/L (21.0-31.0); CHLORIDE 105 mEq/L (98-107); GLUCOSE 264 mg/dL (70-105); POTASSIUM SERUM 3.9 mEq/L (3.5-5.1); SODIUM SERUM 133 mEq/L (136-145)
[2017-03-28] MEDS: Aspirin 81mg Chewable Tab PO SCH (10:27)
[2017-03-28] MEDS: Ferrous Sulfate 325 MG TAB PO SCH (10:28)
[2017-03-28] MEDS: Insulin Detemir 100 units/mL 10mL Vial SUBQ SCH ×2 (10:28→22:45)
--- NOTE | 2017-03-28 10:46 | Infectious Disease Prog Note ---
Infectious Disease Subjective - Review of Systems Service Date: 03/28/17 Subjective: No fever, no new change. Infectious Disease Objective - Results Result Diagrams: 03/27/17 05:20 03/28/17 09:15 Recent Labs: Laboratory Last Values WBC 6.4 Th/cmm (4.8-10.8) 03/27/17 05:20 RBC 3.13 Mil/cmm (3.80-5.20) L 03/27/17 05:20 Hgb 8.9 gm/dL (12-16) L 03/27/17 05:20 Hct 27.1 % (41.0-60) L 03/27/17 05:20 MCV 86.7 fl (81-100) 03/27/17 05:20 MCH 28.4 pg (27.0-31.0) 03/27/17 05:20 MCHC Differential 32.7 pg (28.0-36.0) 03/27/17 05:20 RDW 14.0 % (11.5-20.0) 03/27/17 05:20 Plt Count 230 Th/cmm (150-400) 03/27/17 05:20 MPV 8.0 fl 03/27/17 05:20 Neutrophils % 42.9 % (40.0-80.0) 03/27/17 05:20 Lymphocytes % 45.2 % (20.0-50.0) 03/27/17 05:20 Monocytes % 5.4 % (2.0-10.0) 03/27/17 05:20 Eosinophils % 6.1 % (0.0-5.0) H 03/27/17 05:20 Basophils % 0.4 % (0.0-2.0) 03/27/17 05:20 Sodium 133 mEq/L (136-145) L 03/28/17 09:15 Potassium 3.9 mEq/L (3.5-5.1) 03/28/17 09:15 Chloride 105 mEq/L (98-107) 03/28/17 09:15 Carbon Dioxide 25.1 mEq/L (21.0-31.0) 03/28/17 09:15 Anion Gap 6.8 (7.0-16.0) L 03/28/17 09:15 BUN 16 mg/dL (7-25) 03/28/17 09:15 Creatinine 1.0 mg/dL (0.6-1.2) 03/28/17 09:15 Est GFR ( Amer) TNP 03/28/17 09:15 Est GFR (Non-Af Amer) TNP 03/28/17 09:15 BUN/Creatinine Ratio 16.0 03/28/17 09:15 Glucose 264 mg/dL (70-105) H 03/28/17 09:15 POC Glucose 210 MG/DL (70 - 105) H 03/28/17 06:42 Hemoglobin A1c % 9.8 % (4.0-6.0) H 03/25/17 16:00 Whole Bld Lactic Acid 1.84 mmol/L (0.60-1.99) 03/25/17 16:00 Calcium 8.8 mg/dL (8.6-10.3) 03/28/17 09:15 Total Bilirubin 0.2 mg/dL (0.3-1.0) L 03/26/17 04:35 AST 11 U/L (13-39) L 03/26/17 04:35 ALT 14 U/L (7-52) 03/26/17 04:35 Alkaline Phosphatase 106 U/L (34-104) H 03/26/17 04:35 Total Protein 5.5 gm/dL (6.0-8.3) L 03/26/17 04:35 Albumin 2.6 gm/dL (3.7-5.3) L 03/26/17 04:35 Globulin 2.9 gm/dL 03/26/17 04:35 Albumin/Globulin Ratio 0.9 (1.0-1.8) L 03/26/17 04:35 Urine Source RANDOM 03/25/17 15:04 Urine Color YELLOW 03/25/17 15:04 Urine Clarity SLIGHTLY HAZY (CLEAR) 03/25/17 15:04 Urine pH 5.5 (4.6 - 8.0) 03/25/17 15:04 Ur Specific [place] 1.020 (1.005-1.030) 03/25/17 15:04 Urine Protein 100 mg/dL (NEGATIVE) H 03/25/17 15:04 Urine Glucose (UA) >=1000 mg/dL (NEGATIVE) H 03/25/17 15:04 Urine Ketones NEGATIVE mg/dL (NEGATIVE) 03/25/17 15:04 Urine Blood TRACE (NEGATIVE) 03/25/17 15:04 Urine Nitrate NEGATIVE (NEGATIVE) 03/25/17 15:04 Urine Bilirubin NEGATIVE (NEGATIVE) 03/25/17 15:04 Urine Urobilinogen 0.2 E.U./dL (0.2 - 1.0) 03/25/17 15:04 Ur Leukocyte Esterase NEGATIVE (NEGATIVE) 03/25/17 15:04 Urine RBC 2-5 /hpf (0-5) 03/25/17 15:04 Urine WBC 0-2 /hpf (0-5) 03/25/17 15:04 Ur Epithelial Cells OCCASIONAL /lpf (FEW) 03/25/17 15:04 Amorphous Sediment MANY URATES (NONE SEEN) 03/25/17 15:04 Urine Bacteria 1+ /hpf (NONE SEEN) H 03/25/17 15:04 Vancomycin Trough 12.6 ug/mL (10-20) 03/28/17 09:15 Serum Ketones NEGATIVE (NEGATIVE) 03/25/17 16:00 Hepatitis A IgM Ab Negative (Negative) 03/25/17 17:12 Hep Bs Antigen Negative (Negative) 03/25/17 17:12 Hep B Core IgM Ab Negative (Negative) 03/25/17 17:12 Hepatitis C Antibody 0.1 s/co ratio (0.0-0.9) 03/25/17 17:12 - Physical Exam Vitals and I&O: Vital Signs Temp 98.9 F 03/28/17 08:00 Pulse 74 03/28/17 10:27 Resp 18 03/28/17 09:07 BP 149/72 03/28/17 10:27 Pulse Ox 100 03/28/17 08:00 Intake & Output 03/27/17 03/28/17 03/28/17 18:59 06:59 18:59 Intake Total 1426.342 9586 Balance 4744.615 1586 Weight (lbs) 98.883 kg 98.883 kg Intake: Intake, IV Amount 655.559 6104 Sodium Chloride 0.9% 1, 977.950 7591 000 ml @ 100 mls/hr IV . Q10H [facility] Rx#:[id number] Vancomycin HCl 1 gm In 250 250 Sodium Chloride 0.9% 250 ml @ 165 mls/hr IV Q12H [facility] Rx#:[id number] Oral 720 200 Other: # Voids 4 # Bowel Movements 0 Stool Characteristics Soft Soft Soft Active Medications: Current Medications Acetaminophen (Tylenol) 325 mg PO Q4HR PRN PRN Reason: Pain (Mild) Stop: 05/24/17 20:14 Last Admin: 03/26/17 17:10 Dose: 325 mg Acetaminophen (Tylenol) 650 mg PO Q6H PRN PRN Reason: TEMP >101 Stop: 05/24/17 20:43 Last Admin: 03/27/17 01:00 Dose: 650 mg Amlodipine Besylate (Norvasc) 5 mg PO DAILY [facility] Stop: 05/25/17 08:59 Last Admin: 03/28/17 10:27 Dose: 5 mg Aspirin (Aspirin Chewable) 81 mg PO DAILY [facility] Stop: 05/25/17 08:59 Last Admin: 03/28/17 10:27 Dose: 81 mg Bisacodyl (Dulcolax 10 Mg Supp) 10 mg RC DAILY [facility] PRN Reason: Constipation Stop: 05/24/17 20:14 Clopidogrel Bisulfate (Plavix) 75 mg PO DAILY [facility] Stop: 05/25/17 08:59 Last Admin: 03/28/17 10:27 Dose: 75 mg Docusate Sodium (Colace) 100 mg PO BID [facility] Stop: 05/25/17 08:59 Last Admin: 03/28/17 10:27 Dose: 100 mg Ferrous Sulfate (Iron) 325 mg PO DAILY [facility] Stop: 05/25/17 08:59 Last Admin: 03/28/17 10:28 Dose: 325 mg Furosemide (Lasix) 40 mg PO DAILY [facility] Stop: 05/25/17 08:59 Last Admin: 03/28/17 10:27 Dose: 40 mg Sodium Chloride (Nacl 0.9%) 1,000 mls @ 100 mls/hr IV .Q10H [facility] Stop: 05/24/17 20:14 Last Admin: 03/27/17 22:42 Dose: 100 mls/hr Vancomycin HCl 1 gm/ Sodium (Chloride) 250 mls @ 165 mls/hr IV Q12H [facility] Stop: 05/25/17 09:59 Last Admin: 03/28/17 10:28 Dose: 165 mls/hr Insulin Aspart (Novolog Insulin Sliding Scale) 0 units SUBQ ACHS [facility] PRN Reason: Protocol Stop: 05/24/17 20:59 Last Admin: 03/28/17 07:23 Dose: 5 units Insulin Detemir (Levemir Insulin) 30 units SUBQ HS [facility] PRN Reason: Protocol Stop: 05/26/17 20:59 Last Admin: 03/27/17 21:22 Dose: 30 units Insulin Detemir (Levemir Insulin) 15 units SUBQ DAILY [facility] PRN Reason: Protocol Stop: 05/27/17 08:59 Last Admin: 03/28/17 10:28 Dose: 15 units Lisinopril (Zestril) 10 mg PO Q12HR [facility] Stop: 05/26/17 20:59 Last Admin: 03/28/17 10:27 Dose: 10 mg Miscellaneous (Vancomycin Iv Per Pharmacy) 1 ea MC DAILY [facility] Stop: 03/28/17 19:59 Morphine Sulfate (Morphine) 1 mg IM Q3HR PRN PRN Reason: Pain (Moderate) Stop: 05/25/17 17:52 Last Admin: 03/27/17 21:13 Dose: 1 mg Morphine Sulfate (Morphine) 2 mg IVP Q3HR PRN PRN Reason: Pain (Severe) Stop: 05/25/17 17:56 Ondansetron HCl (Zofran) 4 mg IV Q6H PRN PRN Reason: Nausea / Vomiting Stop: 05/25/17 18:24 Senna (Senna) 8.6 mg PO HS [facility] Stop: 05/24/17 20:59 Last Admin: 03/27/17 22:43 Dose: 8.6 mg General: no acute distress, well developed, well nourished HEENT: atraumatic, normocephalic, PERRLA, EOMI Neck: supple, no thyromegaly, no lymphadenopathy, no rigid Cardiovascular: S1S2, regular Lungs: clear to auscultation bilaterally, clear to percussion Abdomen: soft, no tender, no hepatomegaly Extremities: no cyanosis, no clubbing, no edema Neurological: awake Skin: other (right heel ulcer.) - Procedures Procedures: Procedures Procedure Code Date EXCISION OF L FOOT SUBCU/FASCIA, OPEN APPROACH [id number] 02/22/17 PARTIAL REMOVAL FOOT FASCIA 46097 02/22/17 Infectious Disease Assmt/Plan - Problem List Patient Problems: All Active Problems HYPERGLYCEMIA (Acute) H/O recurrent urinary tract infection (Acute) Z87.440 H/O type 2 diabetes mellitus (Acute) Z86.39 H/O: HTN (hypertension) (Acute) Z86.79 Nonhealing ulcer of heel (Acute) L97.409 r/o osteomyelitis (Acute) - Assessment Assessment: IMPRESSION: 1. Left heel cellulitis. 2. Uncontrolled diabetes mellitus, type 2. 3. Hypertension. 4. Hyperlipidemia. 5. Obesity. RECOMMENDATIONS: We will continue vancomycin IV. Nutritional Asmnt/Malnutr-PDOC - Dietary Evaluation Malnutrition Findings (Please click <Entered> for more info): Nutritional Asmnt/Malnutrition Start: 03/27/17 12: 55 Text: Status: Complete Freq: Document 03/27/17 12:55 ANSELMO (Rec: 03/27/17 13:15 [email or web address]) Nutritional Asmnt/Malnutrition Patient General Information Nutritional Screening High Risk Consult Diagnosis uncontrolled diabetes, osteomylitis Pertinent Medical Hx/Surgical Hx DM, right foot ulcer, peripheral vascular diseas, osteomyelitis Subjective Information Consult for high blood sugar received. Pt is 72 yo female from SNF admitted for high blood sugar. Pt seen alert in bed, does not want to talk much during the time of visit. Pt reported she does not eat breakfast, usually lunch and dinenr daily. Per notes PO intake 50% of three meals yesterday 03/26. Pt appeared obese, no fat/muscle wasting noted. Current Diet Order/ Nutrition Support [facility] 45gm Pertinent Medications Colace, Iron, Lasix, Novolog, Levemir, Senna, Vancomycin, Nacl IV Pertinent Labs 03/27 Na 133L, K 4.0, Cl 106, BUN 16, Cr 0.8, Glu 231 03/25 Glu 464 POC 306-439 since adm Nutritional Hx/Data Height 1.57 m Height (Calculated Centimeters) 157.5 Current Weight (lbs) 99.337 kg Weight (Calculated Kilograms) 99.3 Weight (Calculated Grams) 36220.7 Usual body Weight (lbs) 220 % Usual Body Weight 100 [place] Body Weight 110 % [place] Body Weight 199 Body Mass Index (BMI) 40.0 Recent Weight Change No Weight Status Morbidly Obese GI Symptoms GI Symptoms None Difficult in: None Cultural/Ethnic/Jew Belief pt likes soup Usual diet at home skip breakfast, two meals daily Skin Integrity/Comment: skin tear to perineal area, reddened area to buttocks, perineal area and coccyx Current %PO Fair (50-74%) Estimated Nutritional Goals BEE in Kcals: Adj wt of IBW Calories/Kcals/Kg (25-30kcal/kg based on adj wt 137lb/62kg) Kcals Calculated 0084-6626 Protein: Adj wt of IBW Protein g/k-1.2 Protein Calculated 62-74 Fluid: ml 8394-9520 Nutritional Problem 1. Problem Problem altered nutrition related lab values Etiology dx of DM Signs/Symptoms: Glu 464, POC 306-439 Malnutrition Alert Protein-Calorie Malnutrition N/A Is there a minimum of two criteria No selected? Query Text:Check all the applicable criteria. A minimum of two criteria are recommended for diagnosis of either severe or non-severe malnutrition. Intervention/Recommendation Comments 1. Continue with current diet as ordered. Encouraged to follow 3 meals per day, eat breakfast regularly. 2. notified kosher dietary service supervisor that pt likes soup, update food preference 3. Monitor wt weekly, skin integrity, labs, blood sugar, adjust insullin as needed. 4. F/U as moderate risk in 3-5 days, 03/30-04/01 Expected Outcomes/Goals Expected Outcomes/Goals 1. pt will consume 3 meals per day, PO intake to meet at least 75% of nutritional needs 2. blood sugar to improve 3. wt stability 4. skin to improve
--- NOTE | 2017-03-28 12:47 | Internal Medicine Prog Note ---
Internal Medicine Subjective - Subjective Service Date: 03/28/17 Patient seen and examined:: with staff Patient is:: awake Per staff patient has:: no adverse event Internal Medicine Objective - Results Result Diagrams: 03/27/17 05:20 03/28/17 09:15 Recent Labs: Laboratory Last Values WBC 6.4 Th/cmm (4.8-10.8) 03/27/17 05:20 RBC 3.13 Mil/cmm (3.80-5.20) L 03/27/17 05:20 Hgb 8.9 gm/dL (12-16) L 03/27/17 05:20 Hct 27.1 % (41.0-60) L 03/27/17 05:20 MCV 86.7 fl (81-100) 03/27/17 05:20 MCH 28.4 pg (27.0-31.0) 03/27/17 05:20 MCHC Differential 32.7 pg (28.0-36.0) 03/27/17 05:20 RDW 14.0 % (11.5-20.0) 03/27/17 05:20 Plt Count 230 Th/cmm (150-400) 03/27/17 05:20 MPV 8.0 fl 03/27/17 05:20 Neutrophils % 42.9 % (40.0-80.0) 03/27/17 05:20 Lymphocytes % 45.2 % (20.0-50.0) 03/27/17 05:20 Monocytes % 5.4 % (2.0-10.0) 03/27/17 05:20 Eosinophils % 6.1 % (0.0-5.0) H 03/27/17 05:20 Basophils % 0.4 % (0.0-2.0) 03/27/17 05:20 Sodium 133 mEq/L (136-145) L 03/28/17 09:15 Potassium 3.9 mEq/L (3.5-5.1) 03/28/17 09:15 Chloride 105 mEq/L (98-107) 03/28/17 09:15 Carbon Dioxide 25.1 mEq/L (21.0-31.0) 03/28/17 09:15 Anion Gap 6.8 (7.0-16.0) L 03/28/17 09:15 BUN 16 mg/dL (7-25) 03/28/17 09:15 Creatinine 1.0 mg/dL (0.6-1.2) 03/28/17 09:15 Est GFR ( Amer) TNP 03/28/17 09:15 Est GFR (Non-Af Amer) TNP 03/28/17 09:15 BUN/Creatinine Ratio 16.0 03/28/17 09:15 Glucose 264 mg/dL (70-105) H 03/28/17 09:15 POC Glucose 210 MG/DL (70 - 105) H 03/28/17 06:42 Hemoglobin A1c % 9.8 % (4.0-6.0) H 03/25/17 16:00 Whole Bld Lactic Acid 1.84 mmol/L (0.60-1.99) 03/25/17 16:00 Calcium 8.8 mg/dL (8.6-10.3) 03/28/17 09:15 Total Bilirubin 0.2 mg/dL (0.3-1.0) L 03/26/17 04:35 AST 11 U/L (13-39) L 03/26/17 04:35 ALT 14 U/L (7-52) 03/26/17 04:35 Alkaline Phosphatase 106 U/L (34-104) H 03/26/17 04:35 Total Protein 5.5 gm/dL (6.0-8.3) L 03/26/17 04:35 Albumin 2.6 gm/dL (3.7-5.3) L 03/26/17 04:35 Globulin 2.9 gm/dL 03/26/17 04:35 Albumin/Globulin Ratio 0.9 (1.0-1.8) L 03/26/17 04:35 Urine Source RANDOM 03/25/17 15:04 Urine Color YELLOW 03/25/17 15:04 Urine Clarity SLIGHTLY HAZY (CLEAR) 03/25/17 15:04 Urine pH 5.5 (4.6 - 8.0) 03/25/17 15:04 Ur Specific [place] 1.020 (1.005-1.030) 03/25/17 15:04 Urine Protein 100 mg/dL (NEGATIVE) H 03/25/17 15:04 Urine Glucose (UA) >=1000 mg/dL (NEGATIVE) H 03/25/17 15:04 Urine Ketones NEGATIVE mg/dL (NEGATIVE) 03/25/17 15:04 Urine Blood TRACE (NEGATIVE) 03/25/17 15:04 Urine Nitrate NEGATIVE (NEGATIVE) 03/25/17 15:04 Urine Bilirubin NEGATIVE (NEGATIVE) 03/25/17 15:04 Urine Urobilinogen 0.2 E.U./dL (0.2 - 1.0) 03/25/17 15:04 Ur Leukocyte Esterase NEGATIVE (NEGATIVE) 03/25/17 15:04 Urine RBC 2-5 /hpf (0-5) 03/25/17 15:04 Urine WBC 0-2 /hpf (0-5) 03/25/17 15:04 Ur Epithelial Cells OCCASIONAL /lpf (FEW) 03/25/17 15:04 Amorphous Sediment MANY URATES (NONE SEEN) 03/25/17 15:04 Urine Bacteria 1+ /hpf (NONE SEEN) H 03/25/17 15:04 Vancomycin Trough 12.6 ug/mL (10-20) 03/28/17 09:15 Serum Ketones NEGATIVE (NEGATIVE) 03/25/17 16:00 Hepatitis A IgM Ab Negative (Negative) 03/25/17 17:12 Hep Bs Antigen Negative (Negative) 03/25/17 17:12 Hep B Core IgM Ab Negative (Negative) 03/25/17 17:12 Hepatitis C Antibody 0.1 s/co ratio (0.0-0.9) 03/25/17 17:12 - Physical Exam Vitals and I&O: Vital Signs Temp 98.9 F 03/28/17 08:00 Pulse 74 03/28/17 10:27 Resp 18 03/28/17 09:07 BP 149/72 03/28/17 10:27 Pulse Ox 100 03/28/17 08:00 Intake & Output 03/27/17 03/28/17 03/28/17 18:59 06:59 18:59 Intake Total 1864.576 3120 Balance 6233.553 1071 Weight (lbs) 218 lb 218 lb Intake: Intake, IV Amount 405.649 7689 Sodium Chloride 0.9% 1, 436.175 5159 000 ml @ 100 mls/hr IV . Q10H [facility] Rx#:[id number] Vancomycin HCl 1 gm In 250 250 Sodium Chloride 0.9% 250 ml @ 165 mls/hr IV Q12H [facility] Rx#:[id number] Oral 720 200 Other: # Voids 4 # Bowel Movements 0 Stool Characteristics Soft Soft Soft Active Medications: Current Medications Acetaminophen (Tylenol) 325 mg PO Q4HR PRN PRN Reason: Pain (Mild) Stop: 05/24/17 20:14 Last Admin: 03/26/17 17:10 Dose: 325 mg Acetaminophen (Tylenol) 650 mg PO Q6H PRN PRN Reason: TEMP >101 Stop: 05/24/17 20:43 Last Admin: 03/27/17 01:00 Dose: 650 mg Amlodipine Besylate (Norvasc) 5 mg PO DAILY [facility] Stop: 05/25/17 08:59 Last Admin: 03/28/17 10:27 Dose: 5 mg Aspirin (Aspirin Chewable) 81 mg PO DAILY [facility] Stop: 05/25/17 08:59 Last Admin: 03/28/17 10:27 Dose: 81 mg Bisacodyl (Dulcolax 10 Mg Supp) 10 mg RC DAILY PRN PRN Reason: Constipation Stop: 05/24/17 20:14 Clopidogrel Bisulfate (Plavix) 75 mg PO DAILY [facility] Stop: 05/25/17 08:59 Last Admin: 03/28/17 10:27 Dose: 75 mg Docusate Sodium (Colace) 100 mg PO BID [facility] Stop: 05/25/17 08:59 Last Admin: 03/28/17 10:27 Dose: 100 mg Ferrous Sulfate (Iron) 325 mg PO DAILY [facility] Stop: 05/25/17 08:59 Last Admin: 03/28/17 10:28 Dose: 325 mg Furosemide (Lasix) 40 mg PO DAILY [facility] Stop: 05/25/17 08:59 Last Admin: 03/28/17 10:27 Dose: 40 mg Sodium Chloride (Nacl 0.9%) 1,000 mls @ 100 mls/hr IV .Q10H [facility] Stop: 05/24/17 20:14 Last Admin: 03/27/17 22:42 Dose: 100 mls/hr Vancomycin HCl 1 gm/ Sodium (Chloride) 250 mls @ 165 mls/hr IV Q12H [facility] Stop: 05/25/17 09:59 Last Admin: 03/28/17 10:28 Dose: 165 mls/hr Insulin Aspart (Novolog Insulin Sliding Scale) 0 units SUBQ ACHS [facility] PRN Reason: Protocol Stop: 05/24/17 20:59 Last Admin: 03/28/17 07:23 Dose: 5 units Insulin Detemir (Levemir Insulin) 30 units SUBQ HS [facility] PRN Reason: Protocol Stop: 05/26/17 20:59 Last Admin: 03/27/17 21:22 Dose: 30 units Insulin Detemir (Levemir Insulin) 15 units SUBQ DAILY [facility] PRN Reason: Protocol Stop: 05/27/17 08:59 Last Admin: 03/28/17 10:28 Dose: 15 units Lisinopril (Zestril) 10 mg PO Q12HR [facility] Stop: 05/26/17 20:59 Last Admin: 03/28/17 10:27 Dose: 10 mg Miscellaneous (Vancomycin Iv Per Pharmacy) 1 ea [facility] DAILY [facility] Stop: 03/28/17 19:59 Morphine Sulfate (Morphine) 1 mg IM Q3HR PRN PRN Reason: Pain (Moderate) Stop: 05/25/17 17:52 Last Admin: 03/27/17 21:13 Dose: 1 mg Morphine Sulfate (Morphine) 2 mg IVP Q3HR PRN PRN Reason: Pain (Severe) Stop: 05/25/17 17:56 Ondansetron HCl (Zofran) 4 mg IV Q6H PRN PRN Reason: Nausea / Vomiting Stop: 05/25/17 18:24 Senna (Senna) 8.6 mg PO HS [facility] Stop: 05/24/17 20:59 Last Admin: 03/27/17 22:43 Dose: 8.6 mg General: alert HEENT: NC/AT, PERRLA Neck: Supple Lungs: CTAB Cardiovascular: RRR, Normal S1, Normal S2, without murmur Abdomen: soft, non-tender, non-distended, positive bowel sound Neurological: alert - Procedures Procedures: Procedures Procedure Code Date EXCISION OF L FOOT SUBCU/FASCIA, OPEN APPROACH [id number] 02/22/17 PARTIAL REMOVAL FOOT FASCIA 26487 02/22/17 Internal Medicine Assmt/Plan - Assessment Assessment: HYPERGLYCEMIA (Acute) H/O recurrent urinary tract infection (Acute) Z87.440 H/O type 2 diabetes mellitus (Acute) Z86.39 H/O: HTN (hypertension) (Acute) Z86.79 Nonhealing ulcer of heel (Acute) L97.409 r/o osteomyelitis (Acute) - Plan Plan: monitor glucose wound care am labs continue current plan of care Nutritional Asmnt/Malnutr-PDOC - Dietary Evaluation Malnutrition Findings (Please click <Entered> for more info): Nutritional Asmnt/Malnutrition Start: 03/27/17 12: 55 Text: Status: Complete Freq: Document 03/27/17 12:55 TAB (Rec[facility] 03/27[facility]17 [facility] Nutritional Asmnt/Malnutrition Patient General Information Nutritional Screening High Risk Consult Diagnosis uncontrolled diabetes, osteomylitis Pertinent Medical Hx/Surgical Hx DM, right foot ulcer, peripheral vascular diseas, osteomyelitis Subjective Information Consult for high blood sugar received. Pt is 72 yo female from SNF admitted for high blood sugar. Pt seen alert in bed, does not want to talk much during the time of visit. Pt reported she does not eat breakfast, usually lunch and dinenr daily. Per notes PO intake 50% of three meals yesterday 03/26. Pt appeared obese, no fat/muscle wasting noted. Current Diet [facility]/ [facility] Pertinent Medications Colace, Iron, Lasix, Novolog, Levemir, Senna, Vancomycin, Nacl IV Pertinent Labs 03/27 Na 133L, K 4.0, Cl 106, BUN 16, Cr 0.8, Glu 231 03/25 Glu 464 POC 306-439 since adm Nutritional Hx/Data Height 5 ft 2 in Height (Calculated Centimeters) 157.5 Current Weight (lbs) 219 lb Weight (Calculated Kilograms) 99.3 Weight (Calculated Grams) 94398.7 Usual body Weight (lbs) 220 % Usual Body Weight 100 [place] Body Weight 110 % [place] Body Weight 199 Body Mass Index (BMI) 40.0 Recent Weight Change No Weight Status Morbidly Obese GI Symptoms GI Symptoms None Difficult in: None Cultural/Ethnic/Congregational Belief pt likes soup Usual diet at home skip breakfast, two meals daily Skin Integrity/Comment: skin tear to perineal area, reddened area to buttocks, perineal area and coccyx Current %PO Fair (50-74%) Estimated Nutritional Goals BEE in Kcals: Adj wt of IBW Calories/Kcals/Kg (25-30kcal/kg based on adj wt 137lb/62kg) Kcals Calculated 3501-9774 Protein: Adj wt of IBW Protein g/k-1.2 Protein Calculated 62-74 Fluid: ml 5511-1131 Nutritional Problem 1. Problem Problem altered nutrition related lab values Etiology dx of DM Signs/Symptoms: Glu 464, POC 306-439 Malnutrition Alert Protein-Calorie Malnutrition N/A Is there a minimum of two criteria No selected? Query Text:Check all the applicable criteria. A minimum of two criteria are recommended for diagnosis of either severe or non-severe malnutrition. Intervention/Recommendation Comments 1. Continue with current diet as ordered. Encouraged to follow 3 meals per day, eat breakfast regularly. 2. notified dietetics teacher that pt likes soup, update food preference 3. Monitor wt weekly, skin integrity, labs, blood sugar, adjust insullin as needed. 4. F/U as moderate risk in 3-5 days, 03/30-04/01 Expected Outcomes/Goals Expected Outcomes/Goals 1. pt will consume 3 meals per day, PO intake to meet at least 75% of nutritional needs 2. blood sugar to improve 3. wt stability 4. skin to improve
[2017-03-28] MEDS ORDERED: Probiotic Screen MC PRN (15:31)
[2017-03-28] MEDS: Sodium Chloride 0.9% 1,000 ML IV SCH (17:24)
[2017-03-28] MEDS: Lactobacillus Rhamnosus 10 Billion CFU Capsule PO SCH (17:25)
--- NOTE | 2017-03-28 18:30 | General Progress Note ---
Subjective - Review of Systems Service Date: 03/28/17 Events since last encounter: awaiting bone scan report Objective - Results Result Diagrams: 03/27/17 05:20 03/28/17 09:15 Recent Labs: Laboratory Last Values WBC 6.4 Th/cmm (4.8-10.8) 03/27/17 05:20 RBC 3.13 Mil/cmm (3.80-5.20) L 03/27/17 05:20 Hgb 8.9 gm/dL (12-16) L 03/27/17 05:20 Hct 27.1 % (41.0-60) L 03/27/17 05:20 MCV 86.7 fl (81-100) 03/27/17 05:20 MCH 28.4 pg (27.0-31.0) 03/27/17 05:20 MCHC Differential 32.7 pg (28.0-36.0) 03/27/17 05:20 RDW 14.0 % (11.5-20.0) 03/27/17 05:20 Plt Count 230 Th/cmm (150-400) 03/27/17 05:20 MPV 8.0 fl 03/27/17 05:20 Neutrophils % 42.9 % (40.0-80.0) 03/27/17 05:20 Lymphocytes % 45.2 % (20.0-50.0) 03/27/17 05:20 Monocytes % 5.4 % (2.0-10.0) 03/27/17 05:20 Eosinophils % 6.1 % (0.0-5.0) H 03/27/17 05:20 Basophils % 0.4 % (0.0-2.0) 03/27/17 05:20 Sodium 133 mEq/L (136-145) L 03/28/17 09:15 Potassium 3.9 mEq/L (3.5-5.1) 03/28/17 09:15 Chloride 105 mEq/L (98-107) 03/28/17 09:15 Carbon Dioxide 25.1 mEq/L (21.0-31.0) 03/28/17 09:15 Anion Gap 6.8 (7.0-16.0) L 03/28/17 09:15 BUN 16 mg/dL (7-25) 03/28/17 09:15 Creatinine 1.0 mg/dL (0.6-1.2) 03/28/17 09:15 Est GFR ( Amer) TNP 03/28/17 09:15 Est GFR (Non-Af Amer) TNP 03/28/17 09:15 BUN/Creatinine Ratio 16.0 03/28/17 09:15 Glucose 264 mg/dL (70-105) H 03/28/17 09:15 POC Glucose 269 MG/DL (70 - 105) H 03/28/17 16:50 Hemoglobin A1c % 9.8 % (4.0-6.0) H 03/25/17 16:00 Whole Bld Lactic Acid 1.84 mmol/L (0.60-1.99) 03/25/17 16:00 Calcium 8.8 mg/dL (8.6-10.3) 03/28/17 09:15 Total Bilirubin 0.2 mg/dL (0.3-1.0) L 03/26/17 04:35 AST 11 U/L (13-39) L 03/26/17 04:35 ALT 14 U/L (7-52) 03/26/17 04:35 Alkaline Phosphatase 106 U/L (34-104) H 03/26/17 04:35 Total Protein 5.5 gm/dL (6.0-8.3) L 03/26/17 04:35 Albumin 2.6 gm/dL (3.7-5.3) L 03/26/17 04:35 Globulin 2.9 gm/dL 03/26/17 04:35 Albumin/Globulin Ratio 0.9 (1.0-1.8) L 03/26/17 04:35 Urine Source RANDOM 03/25/17 15:04 Urine Color YELLOW 03/25/17 15:04 Urine Clarity SLIGHTLY HAZY (CLEAR) 03/25/17 15:04 Urine pH 5.5 (4.6 - 8.0) 03/25/17 15:04 Ur Specific [place] 1.020 (1.005-1.030) 03/25/17 15:04 Urine Protein 100 mg/dL (NEGATIVE) H 03/25/17 15:04 Urine Glucose (UA) >=1000 mg/dL (NEGATIVE) H 03/25/17 15:04 Urine Ketones NEGATIVE mg/dL (NEGATIVE) 03/25/17 15:04 Urine Blood TRACE (NEGATIVE) 03/25/17 15:04 Urine Nitrate NEGATIVE (NEGATIVE) 03/25/17 15:04 Urine Bilirubin NEGATIVE (NEGATIVE) 03/25/17 15:04 Urine Urobilinogen 0.2 E.U./dL (0.2 - 1.0) 03/25/17 15:04 Ur Leukocyte Esterase NEGATIVE (NEGATIVE) 03/25/17 15:04 Urine RBC 2-5 /hpf (0-5) 03/25/17 15:04 Urine WBC 0-2 /hpf (0-5) 03/25/17 15:04 Ur Epithelial Cells OCCASIONAL /lpf (FEW) 03/25/17 15:04 Amorphous Sediment MANY URATES (NONE SEEN) 03/25/17 15:04 Urine Bacteria 1+ /hpf (NONE SEEN) H 03/25/17 15:04 Vancomycin Trough 12.6 ug/mL (10-20) 03/28/17 09:15 Serum Ketones NEGATIVE (NEGATIVE) 03/25/17 16:00 Hepatitis A IgM Ab Negative (Negative) 03/25/17 17:12 Hep Bs Antigen Negative (Negative) 03/25/17 17:12 Hep B Core IgM Ab Negative (Negative) 03/25/17 17:12 Hepatitis C Antibody 0.1 s/co ratio (0.0-0.9) 03/25/17 17:12 - Physical Exam Vitals and I&O: Vital Signs Temp 98.2 F 03/28/17 16:00 Pulse 79 03/28/17 16:00 Resp 18 03/28/17 16:00 BP 151/64 03/28/17 16:00 Pulse Ox 99 03/28/17 16:00 Intake & Output 03/27/17 03/28/17 03/28/17 18:59 06:59 18:59 Intake Total 7334.367 5466 1250 Balance 6661.220 5818 1250 Weight (lbs) 98.883 kg 98.883 kg Intake: Intake, IV Amount 354.875 1791 1250 Sodium Chloride 0.9% 1, 424.124 4855 1000 000 ml @ 100 mls/hr IV . Q10H [facility] Rx#:[id number] Vancomycin HCl 1 gm In 250 250 250 Sodium Chloride 0.9% 250 ml @ 165 mls/hr IV Q12H [facility] Rx#:[id number] Oral 720 200 Other: # Voids 4 # Bowel Movements 0 Stool Characteristics Soft Soft Soft Active Medications: Current Medications Acetaminophen (Tylenol) 325 mg PO Q4HR PRN PRN Reason: Pain (Mild) Stop: 05/24/17 20:14 Last Admin: 03/26/17 17:10 Dose: 325 mg Acetaminophen (Tylenol) 650 mg PO Q6H PRN PRN Reason: TEMP >101 Stop: 05/24/17 20:43 Last Admin: 03/27/17 01:00 Dose: 650 mg Amlodipine Besylate (Norvasc) 5 mg PO DAILY [facility] Stop: 05/25/17 08:59 Last Admin: 03/28/17 10:27 Dose: 5 mg Aspirin (Aspirin Chewable) 81 mg PO DAILY [facility] Stop: 05/25/17 08:59 Last Admin: 03/28/17 10:27 Dose: 81 mg Bisacodyl (Dulcolax 10 Mg Supp) 10 mg RC DAILY PRN PRN Reason: Constipation Stop: 05/24/17 20:14 Clopidogrel Bisulfate (Plavix) 75 mg PO DAILY [facility] Stop: 05/25/17 08:59 Last Admin: 03/28/17 10:27 Dose: 75 mg Docusate Sodium (Colace) 100 mg PO BID [facility] Stop: 05/25/17 08:59 Last Admin: 03/28/17 17:25 Dose: 100 mg Ferrous Sulfate (Iron) 325 mg PO DAILY [facility] Stop: 05/25/17 08:59 Last Admin: 03/28/17 10:28 Dose: 325 mg Furosemide (Lasix) 40 mg PO DAILY [facility] Stop: 05/25/17 08:59 Last Admin: 03/28/17 10:27 Dose: 40 mg Sodium Chloride (Nacl 0.9%) 1,000 mls @ 100 mls/hr IV .Q10H [facility] Stop: 05/24/17 20:14 Last Admin: 03/28/17 17:24 Dose: 100 mls/hr Vancomycin HCl 1 gm/ Sodium (Chloride) 250 mls @ 165 mls/hr IV Q12H [facility] Stop: 05/25/17 09:59 Last Infusion: 03/28/17 11:59 Dose: Infused Insulin Aspart (Novolog Insulin Sliding Scale) 0 units SUBQ ACHS [facility] PRN Reason: Protocol Stop: 05/24/17 20:59 Last Admin: 03/28/17 17:26 Dose: 7 units Insulin Detemir (Levemir Insulin) 30 units SUBQ HS [facility] PRN Reason: Protocol Stop: 05/26/17 20:59 Last Admin: 03/27/17 21:22 Dose: 30 units Insulin Detemir (Levemir Insulin) 15 units SUBQ DAILY [facility] PRN Reason: Protocol Stop: 05/27/17 08:59 Last Admin: 03/28/17 10:28 Dose: 15 units Lactobacillus Rhamnosus (Culturelle) 1 each PO DAILY [facility] Stop: 05/27/17 15:59 Last Admin: 03/28/17 17:25 Dose: 1 each Lisinopril (Zestril) 10 mg PO Q12HR [facility] Stop: 05/26/17 20:59 Last Admin: 03/28/17 10:27 Dose: 10 mg Miscellaneous (Vancomycin Iv Per Pharmacy) 1 ea DAILY [facility] Stop: 03/28/17 19:59 Miscellaneous (Probiotic Screen) 1 [facility] PRN PRN PRN Reason: PROTOCOL Stop: 05/27/17 15:30 Morphine Sulfate (Morphine) 1 mg IM Q3HR PRN PRN Reason: Pain (Moderate) Stop: 05/25/17 17:52 Last Admin: 03/27/17 21:13 Dose: 1 mg Morphine Sulfate (Morphine) 2 mg IVP Q3HR PRN PRN Reason: Pain (Severe) Stop: 05/25/17 17:56 Last Admin: 03/28/17 17:39 Dose: 2 mg Ondansetron HCl (Zofran) 4 mg IV Q6H PRN PRN Reason: Nausea / Vomiting Stop: 05/25/17 18:24 Senna (Senna) 8.6 mg PO HS [facility] Stop: 05/24/17 20:59 Last Admin: 03/27/17 22:43 Dose: 8.6 mg General: No acute distress HEENT: Atraumatic Neck: Thyromegaly Cardiovascular: Normal S1 - Procedures Procedures: Procedures Procedure Code Date EXCISION OF L FOOT SUBCU/FASCIA, OPEN APPROACH [id number] 02/22/17 PARTIAL REMOVAL FOOT FASCIA 40636 02/22/17 Assessment/Plan - Problem List Patient Problems: All Active Problems HYPERGLYCEMIA (Acute) H/O recurrent urinary tract infection (Acute) Z87.440 H/O type 2 diabetes mellitus (Acute) Z86.39 H/O: HTN (hypertension) (Acute) Z86.79 Nonhealing ulcer of heel (Acute) L97.409 r/o osteomyelitis (Acute) Nutritional Asmnt/Malnutr-PDOC - Dietary Evaluation Malnutrition Findings (Please click <Entered> for more info): Nutritional Asmnt/Malnutrition Start: 03/27/17 12: 55 Text: Status: Complete Freq: Document 03/27/17 12:55 [facility] (Rec: 03/27/17 13:15 [facility]) Nutritional Asmnt/Malnutrition Patient General Information Nutritional Screening High Risk Consult Diagnosis uncontrolled diabetes, osteomylitis Pertinent Medical Hx/Surgical Hx DM, right foot ulcer, peripheral vascular diseas, osteomyelitis Subjective Information Consult for high blood sugar received. Pt is 72 yo female from SNF admitted for high blood sugar. Pt seen alert in bed, does not want to talk much during the time of visit. Pt reported she does not eat breakfast, usually lunch and dinenr daily. Per notes PO intake 50% of three meals yesterday 03/26. Pt appeared obese, no fat/muscle wasting noted. Current Diet Order/ Nutrition Support [facility] 45gm Pertinent Medications Colace, Iron, Lasix, Novolog, Levemir, Senna, Vancomycin, Nacl IV Pertinent Labs 03/27 Na 133L, K 4.0, Cl 106, BUN 16, Cr 0.8, Glu 231 03/25 Glu 464 POC 306-439 since adm Nutritional Hx/Data Height 1.57 m Height (Calculated Centimeters) 157.5 Current Weight (lbs) 99.337 kg Weight (Calculated Kilograms) 99.3 Weight (Calculated Grams) 48671.7 Usual body Weight (lbs) 220 % Usual Body Weight 100 [place] Body Weight 110 % [place] Body Weight 199 Body Mass Index (BMI) 40.0 Recent Weight Change No Weight Status Morbidly Obese GI Symptoms GI Symptoms None Difficult in: None Cultural/Ethnic/Christian Belief pt likes soup Usual diet at home skip breakfast, two meals daily Skin Integrity/Comment: skin tear to perineal area, reddened area to buttocks, perineal area and coccyx Current %PO Fair (50-74%) Estimated Nutritional Goals BEE in Kcals: Adj wt of IBW Calories/Kcals/Kg (25-30kcal/kg based on adj wt 137lb/62kg) Kcals Calculated 6216-6518 Protein: Adj wt of IBW Protein g/k-1.2 Protein Calculated 62-74 Fluid: ml 0800-7536 Nutritional Problem 1. Problem Problem altered nutrition related lab values Etiology dx of DM Signs/Symptoms: Glu 464, POC 306-439 Malnutrition Alert Protein-Calorie Malnutrition N/A Is there a minimum of two criteria No selected? Query Text:Check all the applicable criteria. A minimum of two criteria are recommended for diagnosis of either severe or non-severe malnutrition. Intervention/Recommendation Comments 1. Continue with current diet as ordered. Encouraged to follow 3 meals per day, eat breakfast regularly. 2. notified dietitian teacher that pt likes soup, update food preference 3. Monitor wt weekly, skin integrity, labs, blood sugar, adjust insullin as needed. 4. F/U as moderate risk in 3-5 days, 03/30-04/01 Expected Outcomes/Goals Expected Outcomes/Goals 1. pt will consume 3 meals per day, PO intake to meet at least 75% of nutritional needs 2. blood sugar to improve 3. wt stability 4. skin to improve
--- NOTE | 2017-03-28 18:39 | General Progress Note ---
Subjective - Review of Systems Service Date: 03/28/17 Events since last encounter: bone scan possible osteo had only 3 weeks of IV antibiotics will need 3 weeks more will notify ID Objective - Results Result Diagrams: 03/27/17 05:20 03/28/17 09:15 Recent Labs: Laboratory Last Values WBC 6.4 Th/cmm (4.8-10.8) 03/27/17 05:20 RBC 3.13 Mil/cmm (3.80-5.20) L 03/27/17 05:20 Hgb 8.9 gm/dL (12-16) L 03/27/17 05:20 Hct 27.1 % (41.0-60) L 03/27/17 05:20 MCV 86.7 fl (81-100) 03/27/17 05:20 MCH 28.4 pg (27.0-31.0) 03/27/17 05:20 MCHC Differential 32.7 pg (28.0-36.0) 03/27/17 05:20 RDW 14.0 % (11.5-20.0) 03/27/17 05:20 Plt Count 230 Th/cmm (150-400) 03/27/17 05:20 MPV 8.0 fl 03/27/17 05:20 Neutrophils % 42.9 % (40.0-80.0) 03/27/17 05:20 Lymphocytes % 45.2 % (20.0-50.0) 03/27/17 05:20 Monocytes % 5.4 % (2.0-10.0) 03/27/17 05:20 Eosinophils % 6.1 % (0.0-5.0) H 03/27/17 05:20 Basophils % 0.4 % (0.0-2.0) 03/27/17 05:20 Sodium 133 mEq/L (136-145) L 03/28/17 09:15 Potassium 3.9 mEq/L (3.5-5.1) 03/28/17 09:15 Chloride 105 mEq/L (98-107) 03/28/17 09:15 Carbon Dioxide 25.1 mEq/L (21.0-31.0) 03/28/17 09:15 Anion Gap 6.8 (7.0-16.0) L 03/28/17 09:15 BUN 16 mg/dL (7-25) 03/28/17 09:15 Creatinine 1.0 mg/dL (0.6-1.2) 03/28/17 09:15 Est GFR ( Amer) TNP 03/28/17 09:15 Est GFR (Non-Af Amer) TNP 03/28/17 09:15 BUN/Creatinine Ratio 16.0 03/28/17 09:15 Glucose 264 mg/dL (70-105) H 03/28/17 09:15 POC Glucose 269 MG/DL (70 - 105) H 03/28/17 16:50 Hemoglobin A1c % 9.8 % (4.0-6.0) H 03/25/17 16:00 Whole Bld Lactic Acid 1.84 mmol/L (0.60-1.99) 03/25/17 16:00 Calcium 8.8 mg/dL (8.6-10.3) 03/28/17 09:15 Total Bilirubin 0.2 mg/dL (0.3-1.0) L 03/26/17 04:35 AST 11 U/L (13-39) L 03/26/17 04:35 ALT 14 U/L (7-52) 03/26/17 04:35 Alkaline Phosphatase 106 U/L (34-104) H 03/26/17 04:35 Total Protein 5.5 gm/dL (6.0-8.3) L 03/26/17 04:35 Albumin 2.6 gm/dL (3.7-5.3) L 03/26/17 04:35 Globulin 2.9 gm/dL 03/26/17 04:35 Albumin/Globulin Ratio 0.9 (1.0-1.8) L 03/26/17 04:35 Urine Source RANDOM 03/25/17 15:04 Urine Color YELLOW 03/25/17 15:04 Urine Clarity SLIGHTLY HAZY (CLEAR) 03/25/17 15:04 Urine pH 5.5 (4.6 - 8.0) 03/25/17 15:04 Ur Specific [place] 1.020 (1.005-1.030) 03/25/17 15:04 Urine Protein 100 mg/dL (NEGATIVE) H 03/25/17 15:04 Urine Glucose (UA) >=1000 mg/dL (NEGATIVE) H 03/25/17 15:04 Urine Ketones NEGATIVE mg/dL (NEGATIVE) 03/25/17 15:04 Urine Blood TRACE (NEGATIVE) 03/25/17 15:04 Urine Nitrate NEGATIVE (NEGATIVE) 03/25/17 15:04 Urine Bilirubin NEGATIVE (NEGATIVE) 03/25/17 15:04 Urine Urobilinogen 0.2 E.U./dL (0.2 - 1.0) 03/25/17 15:04 Ur Leukocyte Esterase NEGATIVE (NEGATIVE) 03/25/17 15:04 Urine RBC 2-5 /hpf (0-5) 03/25/17 15:04 Urine WBC 0-2 /hpf (0-5) 03/25/17 15:04 Ur Epithelial Cells OCCASIONAL /lpf (FEW) 03/25/17 15:04 Amorphous Sediment MANY URATES (NONE SEEN) 03/25/17 15:04 Urine Bacteria 1+ /hpf (NONE SEEN) H 03/25/17 15:04 Vancomycin Trough 12.6 ug/mL (10-20) 03/28/17 09:15 Serum Ketones NEGATIVE (NEGATIVE) 03/25/17 16:00 Hepatitis A IgM Ab Negative (Negative) 03/25/17 17:12 Hep Bs Antigen Negative (Negative) 03/25/17 17:12 Hep B Core IgM Ab Negative (Negative) 03/25/17 17:12 Hepatitis C Antibody 0.1 s/co ratio (0.0-0.9) 03/25/17 17:12 - Physical Exam Vitals and I&O: Vital Signs Temp 98.2 F 03/28/17 16:00 Pulse 79 03/28/17 16:00 Resp 18 03/28/17 16:00 BP 151/64 03/28/17 16:00 Pulse Ox 99 03/28/17 16:00 Intake & Output 03/27/17 03/28/17 03/28/17 18:59 06:59 18:59 Intake Total 6509.210 2704 1250 Balance 9923.932 2566 1250 Weight (lbs) 98.883 kg 98.883 kg Intake: Intake, IV Amount 261.845 5062 1250 Sodium Chloride 0.9% 1, 056.521 4423 1000 000 ml @ 100 mls/hr IV . Q10H [facility] Rx#:[id number] Vancomycin HCl 1 gm In 250 250 250 Sodium Chloride 0.9% 250 ml @ 165 mls/hr IV Q12H [facility] Rx#:[id number] Oral 720 200 Other: # Voids 4 # Bowel Movements 0 Stool Characteristics Soft Soft Soft Active Medications: Current Medications Acetaminophen (Tylenol) 325 mg PO Q4HR PRN PRN Reason: Pain (Mild) Stop: 05/24/17 20:14 Last Admin: 03/26/17 17:10 Dose: 325 mg Acetaminophen (Tylenol) 650 mg PO Q6H PRN PRN Reason: TEMP >101 Stop: 05/24/17 20:43 Last Admin: 03/27/17 01:00 Dose: 650 mg Amlodipine Besylate (Norvasc) 5 mg PO DAILY [facility] Stop: 05/25/17 08:59 Last Admin: 03/28/17 10:27 Dose: 5 mg Aspirin (Aspirin Chewable) 81 mg PO DAILY [facility] Stop: 05/25/17 08:59 Last Admin: 03/28/17 10:27 Dose: 81 mg Bisacodyl (Dulcolax 10 Mg Supp) 10 mg RC DAILY PRN PRN Reason: Constipation Stop: 05/24/17 20:14 Clopidogrel Bisulfate (Plavix) 75 mg PO DAILY [facility] Stop: 05/25/17 08:59 Last Admin: 03/28/17 10:27 Dose: 75 mg Docusate Sodium (Colace) 100 mg PO BID [facility] Stop: 05/25/17 08:59 Last Admin: 03/28/17 17:25 Dose: 100 mg Ferrous Sulfate (Iron) 325 mg PO DAILY [facility] Stop: 05/25/17 08:59 Last Admin: 03/28/17 10:28 Dose: 325 mg Furosemide (Lasix) 40 mg PO DAILY [facility] Stop: 05/25/17 08:59 Last Admin: 03/28/17 10:27 Dose: 40 mg Sodium Chloride (Nacl 0.9%) 1,000 mls @ 100 mls/hr IV .Q10H [facility] Stop: 05/24/17 20:14 Last Admin: 03/28/17 17:24 Dose: 100 mls/hr Vancomycin HCl 1 gm/ Sodium (Chloride) 250 mls @ 165 mls/hr IV Q12H [facility] Stop: 05/25/17 09:59 Last Infusion: 03/28/17 11:59 Dose: Infused Insulin Aspart (Novolog Insulin Sliding Scale) 0 units SUBQ ACHS [facility] PRN Reason: Protocol Stop: 05/24/17 20:59 Last Admin: 03/28/17 17:26 Dose: 7 units Insulin Detemir (Levemir Insulin) 30 units SUBQ HS [facility] PRN Reason: Protocol Stop: 05/26/17 20:59 Last Admin: 03/27/17 21:22 Dose: 30 units Insulin Detemir (Levemir Insulin) 15 units SUBQ DAILY [facility] PRN Reason: Protocol Stop: 05/27/17 08:59 Last Admin: 03/28/17 10:28 Dose: 15 units Lactobacillus Rhamnosus (Culturelle) 1 each PO DAILY [facility] Stop: 05/27/17 15:59 Last Admin: 03/28/17 17:25 Dose: 1 each Lisinopril (Zestril) 10 mg PO Q12HR [facility] Stop: 05/26/17 20:59 Last Admin: 03/28/17 10:27 Dose: 10 mg Miscellaneous (Vancomycin Iv Per Pharmacy) 1 ea MC DAILY [facility] Stop: 03/28/17 19:59 Miscellaneous (Probiotic Screen) 1 ea PRN PRN PRN Reason: PROTOCOL Stop: 05/27/17 15:30 Morphine Sulfate (Morphine) 1 mg IM Q3HR PRN PRN Reason: Pain (Moderate) Stop: 05/25/17 17:52 Last Admin: 03/27/17 21:13 Dose: 1 mg Morphine Sulfate (Morphine) 2 mg IVP Q3HR PRN PRN Reason: Pain (Severe) Stop: 05/25/17 17:56 Last Admin: 03/28/17 17:39 Dose: 2 mg Ondansetron HCl (Zofran) 4 mg IV Q6H PRN PRN Reason: Nausea / Vomiting Stop: 05/25/17 18:24 Senna (Senna) 8.6 mg PO HS [facility] Stop: 05/24/17 20:59 Last Admin: 03/27/17 22:43 Dose: 8.6 mg General: No acute distress HEENT: Atraumatic Neck: Thyromegaly Cardiovascular: Normal S1 - Procedures Procedures: Procedures Procedure Code Date EXCISION OF L FOOT SUBCU/FASCIA, OPEN APPROACH [id number] 02/22/17 PARTIAL REMOVAL FOOT FASCIA 65651 02/22/17 Assessment/Plan - Problem List Patient Problems: All Active Problems HYPERGLYCEMIA (Acute) H/O recurrent urinary tract infection (Acute) Z87.440 H/O type 2 diabetes mellitus (Acute) Z86.39 H/O: HTN (hypertension) (Acute) Z86.79 Nonhealing ulcer of heel (Acute) L97.409 r/o osteomyelitis (Acute) Nutritional Asmnt/Malnutr-PDOC - Dietary Evaluation Malnutrition Findings (Please click <Entered> for more info): Nutritional Asmnt/Malnutrition Start: 03/27/17 12: 55 Text: Status: Complete Freq: Document 03/27/17 12:55 TAB (Rec: 03/27/17 13:15 [email or web address] Nutritional Asmnt/Malnutrition Patient General Information Nutritional Screening High Risk Consult Diagnosis uncontrolled diabetes, osteomylitis Pertinent Medical Hx/Surgical Hx DM, right foot ulcer, peripheral vascular diseas, osteomyelitis Subjective Information Consult for high blood sugar received. Pt is 72 yo female from SNF admitted for high blood sugar. Pt seen alert in bed, does not want to talk much during the time of visit. Pt reported she does not eat breakfast, usually lunch and dinenr daily. Per notes PO intake 50% of three meals yesterday 03/26. Pt appeared obese, no fat/muscle wasting noted. Current Diet Order/ Nutrition Support CCHO 45gm Pertinent Medications Colace, Iron, Lasix, Novolog, Levemir, Senna, Vancomycin, Nacl IV Pertinent Labs 03/27 Na 133L, K 4.0, Cl 106, BUN 16, Cr 0.8, Glu 231 03/25 Glu 464 POC 306-439 since adm Nutritional Hx/Data Height 1.57 m Height (Calculated Centimeters) 157.5 Current Weight (lbs) 99.337 kg Weight (Calculated Kilograms) 99.3 Weight (Calculated Grams) 11228.7 Usual body Weight (lbs) 220 % Usual Body Weight 100 [place] Body Weight 110 % [place] Body Weight 199 Body Mass Index (BMI) 40.0 Recent Weight Change No Weight Status Morbidly Obese GI Symptoms GI Symptoms None Difficult in: None Cultural/Ethnic/Quaker Belief pt likes soup Usual diet at home skip breakfast, two meals daily Skin Integrity/Comment: skin tear to perineal area, reddened area to buttocks, perineal area and coccyx Current %PO Fair (50-74%) Estimated Nutritional Goals BEE in Kcals: Adj wt of IBW Calories/Kcals/Kg (25-30kcal/kg based on adj wt 137lb/62kg) Kcals Calculated 8301-7795 Protein: Adj wt of IBW Protein g/k-1.2 Protein Calculated 62-74 Fluid: ml 3832-7707 Nutritional Problem 1. Problem Problem altered nutrition related lab values Etiology dx of DM Signs/Symptoms: Glu 464, POC 306-439 Malnutrition Alert Protein-Calorie Malnutrition N/A Is there a minimum of two criteria No selected? Query Text:Check all the applicable criteria. A minimum of two criteria are recommended for diagnosis of either severe or non-severe malnutrition. Intervention/Recommendation Comments 1. Continue with current diet as ordered. Encouraged to follow 3 meals per day, eat breakfast regularly. 2. notified didactic program in dietetics director that pt likes soup, update food preference 3. Monitor wt weekly, skin integrity, labs, blood sugar, adjust insullin as needed. 4. F/U as moderate risk in 3-5 days, 03/30-04/01 Expected Outcomes/Goals Expected Outcomes/Goals 1. pt will consume 3 meals per day, PO intake to meet at least 75% of nutritional needs 2. blood sugar to improve 3. wt stability 4. skin to improve
[2017-03-29] MEDS: INSULIN ASPART SLIDING SCALE 100 UNITS/ML UNIT SUBQ SCH ×2 (06:58→12:54)
--- NOTE | 2017-03-29 07:57 | Diagnostic Imaging Report ---
Exam: 3 phase bone scan HISTORY: Osteomyelitis. Findings: Utilizing 25.9 mCi of technetium 99 M MDP examination of the feet bilaterally was obtained. The study demonstrates increased uptake of radiotracer in the left ankle joint extending into talocalcaneal articulation and left os calcaneus, as well as the left toes. Examination of the right foot demonstrate increased uptake of right ankle most likely due to degenerative changes throughout the right ankle joint. IMPRESSION: 1. Increased uptake of right radiopharmaceutical a left ankle joint extending into the talocalcaneal articulation and the os calcaneus as well is increased uptake of the in the left toes might be related to osteomyelitic involvement. The study is limited.
--- NOTE | 2017-03-29 08:58 | General Progress Note ---
Subjective - Review of Systems Events since last encounter: patient awake in no acute distress Objective - Results Result Diagrams: 03/27/17 05:20 03/28/17 09:15 Recent Labs: Laboratory Last Values WBC 6.4 Th/cmm (4.8-10.8) 03/27/17 05:20 RBC 3.13 Mil/cmm (3.80-5.20) L 03/27/17 05:20 Hgb 8.9 gm/dL (12-16) L 03/27/17 05:20 Hct 27.1 % (41.0-60) L 03/27/17 05:20 MCV 86.7 fl (81-100) 03/27/17 05:20 MCH 28.4 pg (27.0-31.0) 03/27/17 05:20 MCHC Differential 32.7 pg (28.0-36.0) 03/27/17 05:20 RDW 14.0 % (11.5-20.0) 03/27/17 05:20 Plt Count 230 Th/cmm (150-400) 03/27/17 05:20 MPV 8.0 fl 03/27/17 05:20 Neutrophils % 42.9 % (40.0-80.0) 03/27/17 05:20 Lymphocytes % 45.2 % (20.0-50.0) 03/27/17 05:20 Monocytes % 5.4 % (2.0-10.0) 03/27/17 05:20 Eosinophils % 6.1 % (0.0-5.0) H 03/27/17 05:20 Basophils % 0.4 % (0.0-2.0) 03/27/17 05:20 Sodium 133 mEq/L (136-145) L 03/28/17 09:15 Potassium 3.9 mEq/L (3.5-5.1) 03/28/17 09:15 Chloride 105 mEq/L (98-107) 03/28/17 09:15 Carbon Dioxide 25.1 mEq/L (21.0-31.0) 03/28/17 09:15 Anion Gap 6.8 (7.0-16.0) L 03/28/17 09:15 BUN 16 mg/dL (7-25) 03/28/17 09:15 Creatinine 1.0 mg/dL (0.6-1.2) 03/28/17 09:15 Est GFR ( Amer) TNP 03/28/17 09:15 Est GFR (Non-Af Amer) TNP 03/28/17 09:15 BUN/Creatinine Ratio 16.0 03/28/17 09:15 Glucose 264 mg/dL (70-105) H 03/28/17 09:15 POC Glucose 163 MG/DL (70 - 105) H 03/29/17 06:14 Hemoglobin A1c % 9.8 % (4.0-6.0) H 03/25/17 16:00 Whole Bld Lactic Acid 1.84 mmol/L (0.60-1.99) 03/25/17 16:00 Calcium 8.8 mg/dL (8.6-10.3) 03/28/17 09:15 Total Bilirubin 0.2 mg/dL (0.3-1.0) L 03/26/17 04:35 AST 11 U/L (13-39) L 03/26/17 04:35 ALT 14 U/L (7-52) 03/26/17 04:35 Alkaline Phosphatase 106 U/L (34-104) H 03/26/17 04:35 Total Protein 5.5 gm/dL (6.0-8.3) L 03/26/17 04:35 Albumin 2.6 gm/dL (3.7-5.3) L 03/26/17 04:35 Globulin 2.9 gm/dL 03/26/17 04:35 Albumin/Globulin Ratio 0.9 (1.0-1.8) L 03/26/17 04:35 Urine Source RANDOM 03/25/17 15:04 Urine Color YELLOW 03/25/17 15:04 Urine Clarity SLIGHTLY HAZY (CLEAR) 03/25/17 15:04 Urine pH 5.5 (4.6 - 8.0) 03/25/17 15:04 Ur Specific [place] 1.020 (1.005-1.030) 03/25/17 15:04 Urine Protein 100 mg/dL (NEGATIVE) H 03/25/17 15:04 Urine Glucose (UA) >=1000 mg/dL (NEGATIVE) H 03/25/17 15:04 Urine Ketones NEGATIVE mg/dL (NEGATIVE) 03/25/17 15:04 Urine Blood TRACE (NEGATIVE) 03/25/17 15:04 Urine Nitrate NEGATIVE (NEGATIVE) 03/25/17 15:04 Urine Bilirubin NEGATIVE (NEGATIVE) 03/25/17 15:04 Urine Urobilinogen 0.2 E.U./dL (0.2 - 1.0) 03/25/17 15:04 Ur Leukocyte Esterase NEGATIVE (NEGATIVE) 03/25/17 15:04 Urine RBC 2-5 /hpf (0-5) 03/25/17 15:04 Urine WBC 0-2 /hpf (0-5) 03/25/17 15:04 Ur Epithelial Cells OCCASIONAL /lpf (FEW) 03/25/17 15:04 Amorphous Sediment MANY URATES (NONE SEEN) 03/25/17 15:04 Urine Bacteria 1+ /hpf (NONE SEEN) H 03/25/17 15:04 Vancomycin Trough 12.6 ug/mL (10-20) 03/28/17 09:15 Serum Ketones NEGATIVE (NEGATIVE) 03/25/17 16:00 Hepatitis A IgM Ab Negative (Negative) 03/25/17 17:12 Hep Bs Antigen Negative (Negative) 03/25/17 17:12 Hep B Core IgM Ab Negative (Negative) 03/25/17 17:12 Hepatitis C Antibody 0.1 s/co ratio (0.0-0.9) 03/25/17 17:12 - Physical Exam Vitals and I&O: Vital Signs Temp 98.4 F 03/29/17 04:00 Pulse 67 03/29/17 04:00 Resp 19 03/29/17 04:00 BP 148/67 03/29/17 04:00 Pulse Ox 98 03/29/17 04:00 Intake & Output 03/28/17 03/29/17 03/29/17 18:59 06:59 18:59 Intake Total 1250 50 Balance 1250 50 Weight (lbs) 12.247 kg Intake: Intake, IV Amount 1250 Sodium Chloride 0.9% 1, 1000 000 ml @ 100 mls/hr IV . Q10H [facility] Rx#:[id number] Vancomycin HCl 1 gm In 250 Sodium Chloride 0.9% 250 ml @ 165 mls/hr IV Q12H [facility] Rx#:[id number] Oral 50 Other: # Voids 2 Stool Characteristics Soft Soft Active Medications: Current Medications Acetaminophen (Tylenol) 325 mg PO Q4HR PRN PRN Reason: Pain (Mild) Stop: 05/24/17 20:14 Last Admin: 03/26/17 17:10 Dose: 325 mg Acetaminophen (Tylenol) 650 mg PO Q6H PRN PRN Reason: TEMP >101 Stop: 05/24/17 20:43 Last Admin: 03/27/17 01:00 Dose: 650 mg Amlodipine Besylate (Norvasc) 5 mg PO DAILY [facility] Stop: 05/25/17 08:59 Last Admin: 03/28/17 10:27 Dose: 5 mg Aspirin (Aspirin Chewable) 81 mg PO DAILY [facility] Stop: 05/25/17 08:59 Last Admin: 03/28/17 10:27 Dose: 81 mg Bisacodyl (Dulcolax 10 Mg Supp) 10 mg RC DAILY PRN PRN Reason: Constipation Stop: 05/24/17 20:14 Clopidogrel Bisulfate (Plavix) 75 mg PO DAILY [facility] Stop: 05/25/17 08:59 Last Admin: 03/28/17 10:27 Dose: 75 mg Docusate Sodium (Colace) 100 mg PO BID [facility] Stop: 05/25/17 08:59 Last Admin: 03/28/17 17:25 Dose: 100 mg Ferrous Sulfate (Iron) 325 mg PO DAILY [facility] Stop: 05/25/17 08:59 Last Admin: 03/28/17 10:28 Dose: 325 mg Furosemide (Lasix) 40 mg PO DAILY [facility] Stop: 05/25/17 08:59 Last Admin: 03/28/17 10:27 Dose: 40 mg Sodium Chloride (Nacl 0.9%) 1,000 mls @ 100 mls/hr IV .Q10H [facility] Stop: 05/24/17 20:14 Last Admin: 03/28/17 17:24 Dose: 100 mls/hr Vancomycin HCl 1 gm/ Sodium (Chloride) 250 mls @ 165 mls/hr IV Q12H [facility] Stop: 05/25/17 09:59 Last Admin: 03/28/17 22:50 Dose: 100 mls/hr Insulin Aspart (Novolog Insulin Sliding Scale) 0 units SUBQ ACHS [facility] PRN Reason: Protocol Stop: 05/24/17 20:59 Last Admin: 03/29/17 06:58 Dose: 3 units Insulin Detemir (Levemir Insulin) 30 units SUBQ HS [facility] PRN Reason: Protocol Stop: 05/26/17 20:59 Last Admin: 03/28/17 22:45 Dose: 30 units Insulin Detemir (Levemir Insulin) 15 units SUBQ DAILY [facility] PRN Reason: Protocol Stop: 05/27/17 08:59 Last Admin: 03/28/17 10:28 Dose: 15 units Lactobacillus Rhamnosus (Culturelle) 1 each PO DAILY [facility] Stop: 05/27/17 15:59 Last Admin: 03/28/17 17:25 Dose: 1 each Lisinopril (Zestril) 10 mg PO Q12HR [facility] Stop: 05/26/17 20:59 Last Admin: 03/28/17 22:47 Dose: 10 mg Miscellaneous (Probiotic Screen) 1 ea MC PRN PRN PRN Reason: PROTOCOL Stop: 05/27/17 15:30 Morphine Sulfate (Morphine) 1 mg IM Q3HR PRN PRN Reason: Pain (Moderate) Stop: 05/25/17 17:52 Last Admin: 03/27/17 21:13 Dose: 1 mg Morphine Sulfate (Morphine) 2 mg IVP Q3HR PRN PRN Reason: Pain (Severe) Stop: 05/25/17 17:56 Last Admin: 03/28/17 17:39 Dose: 2 mg Ondansetron HCl (Zofran) 4 mg IV Q6H PRN PRN Reason: Nausea / Vomiting Stop: 05/25/17 18:24 Senna (Senna) 8.6 mg PO HS [facility] Stop: 05/24/17 20:59 Last Admin: 03/29/17 00:23 Dose: Not Given General: No acute distress HEENT: Atraumatic Neck: Thyromegaly Cardiovascular: Normal S1 - Procedures Procedures: Procedures Procedure Code Date EXCISION OF L FOOT SUBCU/FASCIA, OPEN APPROACH [id number] 02/22/17 PARTIAL REMOVAL FOOT FASCIA 28876 02/22/17 Assessment/Plan - Problem List Patient Problems: All Active Problems HYPERGLYCEMIA (Acute) H/O recurrent urinary tract infection (Acute) Z87.440 H/O type 2 diabetes mellitus (Acute) Z86.39 H/O: HTN (hypertension) (Acute) Z86.79 Nonhealing ulcer of heel (Acute) L97.409 r/o osteomyelitis (Acute) - Plan Plan: cpm Nutritional Asmnt/Malnutr-PDOC - Dietary Evaluation Malnutrition Findings (Please click <Entered> for more info): Nutritional Asmnt/Malnutrition Start: 03/27/17 12: 55 Text: Status: Complete Freq: Document 03/27/17 12:55 LOLIS (Rec: 03/27/17 13:15 [email or web address] [email or web address]) Nutritional Asmnt/Malnutrition Patient General Information Nutritional Screening High Risk Consult Diagnosis uncontrolled diabetes, osteomylitis Pertinent Medical Hx/Surgical Hx DM, right foot ulcer, peripheral vascular diseas, osteomyelitis Subjective Information Consult for high blood sugar received. Pt is 72 yo female from SNF admitted for high blood sugar. Pt seen alert in bed, does not want to talk much during the time of visit. Pt reported she does not eat breakfast, usually lunch and dinenr daily. Per notes PO intake 50% of three meals yesterday 03/26. Pt appeared obese, no fat/muscle wasting noted. Current Diet Order/ Nutrition Support CCHO 45gm Pertinent Medications Colace, Iron, Lasix, Novolog, Levemir, Senna, Vancomycin, Nacl IV Pertinent Labs 03/27 Na 133L, K 4.0, Cl 106, BUN 16, Cr 0.8, Glu 231 03/25 Glu 464 POC 306-439 since adm Nutritional Hx/Data Height 1.57 m Height (Calculated Centimeters) 157.5 Current Weight (lbs) 99.337 kg Weight (Calculated Kilograms) 99.3 Weight (Calculated Grams) 38355.7 Usual body Weight (lbs) 220 % Usual Body Weight 100 [place] Body Weight 110 % [place] Body Weight 199 Body Mass Index (BMI) 40.0 Recent Weight Change No Weight Status Morbidly Obese GI Symptoms GI Symptoms None Difficult in: None Cultural/Ethnic/Gnosticism Belief pt likes soup Usual diet at home skip breakfast, two meals daily Skin Integrity/Comment: skin tear to perineal area, reddened area to buttocks, perineal area and coccyx Current %PO Fair (50-74%) Estimated Nutritional Goals BEE in Kcals: Adj wt of IBW Calories/Kcals/Kg (25-30kcal/kg based on adj wt 137lb/62kg) Kcals Calculated 6839-4079 Protein: Adj wt of IBW Protein g/k-1.2 Protein Calculated 62-74 Fluid: ml 6582-6814 Nutritional Problem 1. Problem Problem altered nutrition related lab values Etiology dx of DM Signs/Symptoms: Glu 464, POC 306-439 Malnutrition Alert Protein-Calorie Malnutrition N/A Is there a minimum of two criteria No selected? Query Text:Check all the applicable criteria. A minimum of two criteria are recommended for diagnosis of either severe or non-severe malnutrition. Intervention/Recommendation Comments 1. Continue with current diet as ordered. Encouraged to follow 3 meals per day, eat breakfast regularly. 2. notified yardage control clerk that pt likes soup, update food preference 3. Monitor wt weekly, skin integrity, labs, blood sugar, adjust insullin as needed. 4. F/U as moderate risk in 3-5 days, 03/30-04/01 Expected Outcomes/Goals Expected Outcomes/Goals 1. pt will consume 3 meals per day, PO intake to meet at least 75% of nutritional needs 2. blood sugar to improve 3. wt stability 4. skin to improve
[2017-03-29] MEDS: Aspirin 81mg Chewable Tab PO SCH (10:17)
[2017-03-29] MEDS: Ferrous Sulfate 325 MG TAB PO SCH (10:17)
[2017-03-29] MEDS: Lactobacillus Rhamnosus 10 Billion CFU Capsule PO SCH (10:17)
[2017-03-29] MEDS: Insulin Detemir 100 units/mL 10mL Vial SUBQ SCH (10:28)
[2017-03-29] MEDS: Sodium Chloride 0.9% 1,000 ML IV SCH (10:29)
--- NOTE | 2017-03-29 12:27 | Infectious Disease Prog Note ---
Infectious Disease Subjective - Review of Systems Service Date: 03/29/17 Subjective: No fever, no new change. Infectious Disease Objective - Results Result Diagrams: 03/27/17 05:20 03/28/17 09:15 Recent Labs: Laboratory Last Values WBC 6.4 Th/cmm (4.8-10.8) 03/27/17 05:20 RBC 3.13 Mil/cmm (3.80-5.20) L 03/27/17 05:20 Hgb 8.9 gm/dL (12-16) L 03/27/17 05:20 Hct 27.1 % (41.0-60) L 03/27/17 05:20 MCV 86.7 fl (81-100) 03/27/17 05:20 MCH 28.4 pg (27.0-31.0) 03/27/17 05:20 MCHC Differential 32.7 pg (28.0-36.0) 03/27/17 05:20 RDW 14.0 % (11.5-20.0) 03/27/17 05:20 Plt Count 230 Th/cmm (150-400) 03/27/17 05:20 MPV 8.0 fl 03/27/17 05:20 Neutrophils % 42.9 % (40.0-80.0) 03/27/17 05:20 Lymphocytes % 45.2 % (20.0-50.0) 03/27/17 05:20 Monocytes % 5.4 % (2.0-10.0) 03/27/17 05:20 Eosinophils % 6.1 % (0.0-5.0) H 03/27/17 05:20 Basophils % 0.4 % (0.0-2.0) 03/27/17 05:20 Sodium 133 mEq/L (136-145) L 03/28/17 09:15 Potassium 3.9 mEq/L (3.5-5.1) 03/28/17 09:15 Chloride 105 mEq/L (98-107) 03/28/17 09:15 Carbon Dioxide 25.1 mEq/L (21.0-31.0) 03/28/17 09:15 Anion Gap 6.8 (7.0-16.0) L 03/28/17 09:15 BUN 16 mg/dL (7-25) 03/28/17 09:15 Creatinine 1.0 mg/dL (0.6-1.2) 03/28/17 09:15 Est GFR ( Amer) TNP 03/28/17 09:15 Est GFR (Non-Af Amer) TNP 03/28/17 09:15 BUN/Creatinine Ratio 16.0 03/28/17 09:15 Glucose 264 mg/dL (70-105) H 03/28/17 09:15 POC Glucose 194 MG/DL (70 - 105) H 03/29/17 11:32 Hemoglobin A1c % 9.8 % (4.0-6.0) H 03/25/17 16:00 Whole Bld Lactic Acid 1.84 mmol/L (0.60-1.99) 03/25/17 16:00 Calcium 8.8 mg/dL (8.6-10.3) 03/28/17 09:15 Total Bilirubin 0.2 mg/dL (0.3-1.0) L 03/26/17 04:35 AST 11 U/L (13-39) L 03/26/17 04:35 ALT 14 U/L (7-52) 03/26/17 04:35 Alkaline Phosphatase 106 U/L (34-104) H 03/26/17 04:35 Total Protein 5.5 gm/dL (6.0-8.3) L 03/26/17 04:35 Albumin 2.6 gm/dL (3.7-5.3) L 03/26/17 04:35 Globulin 2.9 gm/dL 03/26/17 04:35 Albumin/Globulin Ratio 0.9 (1.0-1.8) L 03/26/17 04:35 Urine Source RANDOM 03/25/17 15:04 Urine Color YELLOW 03/25/17 15:04 Urine Clarity SLIGHTLY HAZY (CLEAR) 03/25/17 15:04 Urine pH 5.5 (4.6 - 8.0) 03/25/17 15:04 Ur Specific [place] 1.020 (1.005-1.030) 03/25/17 15:04 Urine Protein 100 mg/dL (NEGATIVE) H 03/25/17 15:04 Urine Glucose (UA) >=1000 mg/dL (NEGATIVE) H 03/25/17 15:04 Urine Ketones NEGATIVE mg/dL (NEGATIVE) 03/25/17 15:04 Urine Blood TRACE (NEGATIVE) 03/25/17 15:04 Urine Nitrate NEGATIVE (NEGATIVE) 03/25/17 15:04 Urine Bilirubin NEGATIVE (NEGATIVE) 03/25/17 15:04 Urine Urobilinogen 0.2 E.U./dL (0.2 - 1.0) 03/25/17 15:04 Ur Leukocyte Esterase NEGATIVE (NEGATIVE) 03/25/17 15:04 Urine RBC 2-5 /hpf (0-5) 03/25/17 15:04 Urine WBC 0-2 /hpf (0-5) 03/25/17 15:04 Ur Epithelial Cells OCCASIONAL /lpf (FEW) 03/25/17 15:04 Amorphous Sediment MANY URATES (NONE SEEN) 03/25/17 15:04 Urine Bacteria 1+ /hpf (NONE SEEN) H 03/25/17 15:04 Vancomycin Trough 12.6 ug/mL (10-20) 03/28/17 09:15 Serum Ketones NEGATIVE (NEGATIVE) 03/25/17 16:00 Hepatitis A IgM Ab Negative (Negative) 03/25/17 17:12 Hep Bs Antigen Negative (Negative) 03/25/17 17:12 Hep B Core IgM Ab Negative (Negative) 03/25/17 17:12 Hepatitis C Antibody 0.1 s/co ratio (0.0-0.9) 03/25/17 17:12 - Physical Exam Vitals and I&O: Vital Signs Temp 97.4 F 03/29/17 08:00 Pulse 85 03/29/17 10:18 Resp 18 03/29/17 11:52 BP 173/70 03/29/17 10:18 Pulse Ox 97 03/29/17 08:00 Intake & Output 03/28/17 03/29/17 03/29/17 18:59 06:59 18:59 Intake Total 1250 1300 Balance 1250 1300 Weight (lbs) 12.247 kg Intake: Intake, IV Amount 1250 1250 Sodium Chloride 0.9% 1, 1000 1000 000 ml @ 100 mls/hr IV . Q10H VEE Rx#:[id number] Vancomycin HCl 1 gm In 250 250 Sodium Chloride 0.9% 250 ml @ 165 mls/hr IV Q12H VEE Rx#:[id number] Oral 50 Other: # Voids 2 Stool Characteristics Soft Soft Active Medications: Current Medications Acetaminophen (Tylenol) 325 mg PO Q4HR PRN PRN Reason: Pain (Mild) Stop: 05/24/17 20:14 Last Admin: 03/26/17 17:10 Dose: 325 mg Acetaminophen (Tylenol) 650 mg PO Q6H PRN PRN Reason: TEMP >101 Stop: 05/24/17 20:43 Last Admin: 03/29/17 10:28 Dose: 650 mg Amlodipine Besylate (Norvasc) 5 mg PO DAILY [facility] Stop: 05/25/17 08:59 Last Admin: 03/29/17 10:18 Dose: 5 mg Aspirin (Aspirin Chewable) 81 mg PO DAILY [facility]EE Stop: 05/25/17 08:59 Last Admin: 03/29/17 10:17 Dose: 81 mg Bisacodyl (Dulcolax 10 Mg Supp) 10 mg RC DAILY PRN PRN Reason: Constipation Stop: 05/24/17 20:14 Clopidogrel Bisulfate (Plavix) 75 mg PO DAILY [facility] Stop: 05/25/17 08:59 Last Admin: 03/29/17 10:18 Dose: 75 mg Docusate Sodium (Colace) 100 mg PO BID [facility] Stop: 05/25/17 08:59 Last Admin: 03/29/17 10:18 Dose: 100 mg Ferrous Sulfate (Iron) 325 mg PO DAILY [facility] Stop: 05/25/17 08:59 Last Admin: 03/29/17 10:17 Dose: 325 mg Furosemide (Lasix) 40 mg PO DAILY [facility] Stop: 05/25/17 08:59 Last Admin: 03/29/17 10:16 Dose: 40 mg Sodium Chloride (Nacl 0.9%) 1,000 mls @ 100 mls/hr IV .Q10H [facility] Stop: 05/24/17 20:14 Last Admin: 03/29/17 10:29 Dose: 100 mls/hr Vancomycin HCl 1 gm/ Sodium (Chloride) 250 mls @ 165 mls/hr IV Q12H [facility] Stop: 05/25/17 09:59 Last Admin: 03/29/17 10:27 Dose: 100 mls/hr Insulin Aspart (Novolog Insulin Sliding Scale) 0 units SUBQ ACHS VEE PRN Reason: Protocol Stop: 05/24/17 20:59 Last Admin: 03/29/17 06:58 Dose: 3 units Insulin Detemir (Levemir Insulin) 30 units SUBQ HS VEE PRN Reason: Protocol Stop: 05/26/17 20:59 Last Admin: 03/28/17 22:45 Dose: 30 units Insulin Detemir (Levemir Insulin) 15 units SUBQ DAILY VEE PRN Reason: Protocol Stop: 05/27/17 08:59 Last Admin: 03/29/17 10:28 Dose: 15 units Lactobacillus Rhamnosus (Culturelle) 1 each PO DAILY [facility] Stop: 05/27/17 15:59 Last Admin: 03/29/17 10:17 Dose: 1 each Lisinopril (Zestril) 10 mg PO Q12HR [facility]EE Stop: 05/26/17 20:59 Last Admin: 03/29/17 10:17 Dose: 10 mg Miscellaneous (Probiotic Screen) 1 ea MC PRN PRN PRN Reason: PROTOCOL Stop: 05/27/17 15:30 Morphine Sulfate (Morphine) 1 mg IM Q3HR PRN PRN Reason: Pain (Moderate) Stop: 05/25/17 17:52 Last Admin: 03/27/17 21:13 Dose: 1 mg Morphine Sulfate (Morphine) 2 mg IVP Q3HR PRN PRN Reason: Pain (Severe) Stop: 05/25/17 17:56 Last Admin: 03/28/17 17:39 Dose: 2 mg Ondansetron HCl (Zofran) 4 mg IV Q6H PRN PRN Reason: Nausea / Vomiting Stop: 05/25/17 18:24 Senna (Senna) 8.6 mg PO HS [facility] Stop: 05/24/17 20:59 Last Admin: 03/29/17 00:23 Dose: Not Given General: no acute distress, well developed, well nourished HEENT: atraumatic, normocephalic Neck: supple, thyromegaly Cardiovascular: S1S2, regular Lungs: clear to auscultation bilaterally, clear to percussion Abdomen: soft, no tender, no distended Extremities: no cyanosis, no clubbing, no edema Neurological: awake, alert, oriented Skin: intact - Procedures Procedures: Procedures Procedure Code Date EXCISION OF L FOOT SUBCU/FASCIA, OPEN APPROACH [id number] 02/22/17 PARTIAL REMOVAL FOOT FASCIA 67269 02/22/17 Infectious Disease Assmt/Plan - Problem List Patient Problems: All Active Problems HYPERGLYCEMIA (Acute) H/O recurrent urinary tract infection (Acute) Z87.440 H/O type 2 diabetes mellitus (Acute) Z86.39 H/O: HTN (hypertension) (Acute) Z86.79 Nonhealing ulcer of heel (Acute) L97.409 r/o osteomyelitis (Acute) - Assessment Assessment: IMPRESSION: 1. Left heel cellulitis. osteomyelitis. 2. Uncontrolled diabetes mellitus, type 2. 3. Hypertension. 4. Hyperlipidemia. 5. Obesity. RECOMMENDATIONS: Will continue vancomycin IV and rocephin iv to complete 6 weeks of therapy. 2 more weeks/14 days more. 3 phase bone scan revealed osteomyelitis. ( diagnosed ini last admission), however clinically, no open wound and wound has closed completely. Radiological studies are going to be positive at this time. DC plan. sandy Yan. Nutritional Asmnt/Malnutr-PDOC - Dietary Evaluation Malnutrition Findings (Please click <Entered> for more info): Nutritional Asmnt/Malnutrition Start: 03/27/17 12: 55 Text: Status: Complete Freq: Document 03/27/17 12:55 LCHENG (Rec: 03/27/17 13:15 [email or web address] [email or web address]) Nutritional Asmnt/Malnutrition Patient General Information Nutritional Screening High Risk Consult Diagnosis uncontrolled diabetes, osteomylitis Pertinent Medical Hx/Surgical Hx DM, right foot ulcer, peripheral vascular diseas, osteomyelitis Subjective Information Consult for high blood sugar received. Pt is 72 yo female from [facility] admitted for high blood sugar. Pt seen alert in bed, does not want to talk much during the time of visit. Pt reported she does not eat breakfast, usually lunch and dinenr daily. Per notes PO intake 50% of three meals yesterday 03/26. Pt appeared obese, no fat/muscle wasting noted. Current Diet [facility]/ [facility] Pertinent Medications Colace, Iron, Lasix, Novolog, Levemir, Senna, Vancomycin, Nacl IV Pertinent Labs 03/27 Na 133L, K 4.0, Cl 106, BUN 16, Cr 0.8, Glu 231 03/25 Glu 464 POC 306-439 since adm Nutritional Hx/Data Height 1.57 m Height (Calculated Centimeters) 157.5 Current Weight (lbs) 99.337 kg Weight (Calculated Kilograms) 99.3 Weight (Calculated Grams) 30132.7 Usual body Weight (lbs) 220 % Usual Body Weight 100 [place] Body Weight 110 % [place] Body Weight 199 Body Mass Index (BMI) 40.0 Recent Weight Change No Weight Status Morbidly Obese GI Symptoms GI Symptoms None Difficult in: None Cultural/Ethnic/Mandaen Belief pt likes soup Usual diet at home skip breakfast, two meals daily Skin Integrity/Comment: skin tear to perineal area, reddened area to buttocks, perineal area and coccyx Current %PO Fair (50-74%) Estimated Nutritional Goals BEE in Kcals: Adj wt of IBW Calories/Kcals/Kg (25-30kcal/kg based on adj wt 137lb/62kg) Kcals Calculated 6934-8651 Protein: Adj wt of IBW Protein g/k-1.2 Protein Calculated 62-74 Fluid: ml 3275-8653 Nutritional Problem 1. Problem Problem altered nutrition related lab values Etiology dx of DM Signs/Symptoms: Glu 464, POC 306-439 Malnutrition Alert Protein-Calorie Malnutrition N/A Is there a minimum of two criteria No selected? Query Text:Check all the applicable criteria. A minimum of two criteria are recommended for diagnosis of either severe or non-severe malnutrition. Intervention/Recommendation Comments 1. Continue with current diet as ordered. Encouraged to follow 3 meals per day, eat breakfast regularly. 2. notified diet aid that pt likes soup, update food preference 3. Monitor wt weekly, skin integrity, labs, blood sugar, adjust insullin as needed. 4. F/U as moderate risk in 3-5 days, 03/30-04/01 Expected Outcomes/Goals Expected Outcomes/Goals 1. pt will consume 3 meals per day, PO intake to meet at least 75% of nutritional needs 2. blood sugar to improve 3. wt stability 4. skin to improve
--- NOTE | 2017-04-01 01:38 | Discharge Summary ---
DATE OF DISCHARGE: 03/29/2017 HOSPITAL COURSE: The patient is a very well known to me. The patient from [place] was admitted to [facility] for leg pain, ulcer, osteomyelitis, sepsis. Admitted on 03/25, discharged back to [place] on 03/29. The patient had a complete workup done and had been given antibiotics. She was seen by ID doctor and surgeon. Surgeon did not want to do any more debridement and the patient was treated for prerenal azotemia, dehydration, also the patient improved. The patient was then stable and pain was controlled. The patient was in stable condition on antibiotics. She was sent back to [place] where I will follow. The patient's condition at the time of discharge was stable. JOB# [id number]
== END 2017-03-29 17:20 | disposition home or self-care (01) | DRG 638 ==
LOC: ER 15:33 → MSI 18:30
PROVIDERS: ADMIT Internal Medicine; ATTEND Internal Medicine
DX: E11.69 Type 2 diabetes mellitus with other specified complication (principal); E87.1 Hypo-osmolality and hyponatremia; L97.519 Non-pressure chronic ulcer of other part of right foot with unspecified severity; E46 Unspecified protein-calorie malnutrition; E11.51 Type 2 diabetes mellitus with diabetic peripheral angiopathy without gangrene; E11.621 Type 2 diabetes mellitus with foot ulcer; E11.65 Type 2 diabetes mellitus with hyperglycemia; M86.8X8 Other osteomyelitis, other site; L03.116 Cellulitis of left lower limb; Z68.42 Body mass index [BMI] 45.0-49.9, adult; E86.0 Dehydration; R79.89 Other specified abnormal findings of blood chemistry; Z66 Do not resuscitate; I10 Essential (primary) hypertension; I25.10 Atherosclerotic heart disease of native coronary artery without angina pectoris; E78.5 Hyperlipidemia, unspecified; E66.9 Obesity, unspecified; Z86.73 Personal history of transient ischemic attack (TIA), and cerebral infarction without residual deficits; Z79.4 Long term (current) use of insulin
CPT/HCPCS: 36415-UA; 78315-TC; 80048-TC; 80053-TC; 80074-90; 80202-TC; 81001-TC; 82010-TC; 82948-90; 83036-90; 83605; 85025-TC; 87070-90; 93005; A9503; J0696; J1815; J2270; J3370; J7030; Z7610